=== PATIENT | male | born 1970 | race Hispanic/Latino ===

== ENCOUNTER 2018-11-04 12:26 | Emergency (ER) | payer OTHER, SELFPAY ==
--- NOTE | 2018-11-04 13:13 | RAD REPORT ---
EXAM DESCRIPTION: RAD - Foot Left 3 View - 11/04/2018 1:05 pm CLINICAL HISTORY: Foot pain, puncture wound plantar surface near the metatarsal heads. COMPARISON: None. FINDINGS: No fracture, dislocation or periosteal reaction. No acute or destructive bony process. No air or foreign body at the puncture site nor elsewhere in the foot. Patient does have arterial ariel cifications present. IMPRESSION: No acute bone or joint finding. No foreign body seen at the puncture site.
--- NOTE | 2018-11-04 14:48 | EDPHYS ---
Physician Documentation [facility] Name: Adiel Jeff Age: 48 yrs Sex: Male : 1970 Arrival Date: 11/04/2018 Time: 12:30 Bed 10 Private MD: None, None ED Physician Adam Valdes HPI: 11/04 19:10 This 48 yrs old Male presents to ER via Ambulatory with complaints of Stepped snw on nail. 19:10 The patient presents with pain, that is acute, tenderness. The complaints affect the snw left foot. Context: The problem was sustained outdoors, while wearing socks and shoe. Onset: The symptoms/episode began/occurred suddenly, just prior to arrival. Associated signs and symptoms: The patient has no apparent associated signs or symptoms. Severity of symptoms: At their worst the symptoms were moderate. The patient has not experienced similar symptoms in the past. The patient has not recently seen a physician. Historical: - Allergies: 12:36 No Known Allergies; hj - Home Meds: 12:36 Metformin Oral [Active]; Glipizide Oral [Active]; Lisinopril Oral [Active]; hj - PMHx: 12:36 Diabetes - NIDDM; Hypertension; hj - PSHx: 12:36 None; hj - Immunization history:: Adult Immunizations up to date. - Social history:: Smoking status: Patient/guardian denies using tobacco, Patient/guardian denies using alcohol. - Ebola Screening: : Patient negative for fever greater than or equal to 101.5 degrees Fahrenheit, and additional compatible Ebola Virus Disease symptoms Patient denies exposure to infectious person Patient denies travel to an Ebola-affected area in the 21 days before illness onset. ROS: 19:08 Constitutional: Negative for fever, chills, and weight loss, Eyes: Negative for injury, snw pain, redness, and discharge, ENT: Negative for injury, pain, and discharge, Neck: Negative for injury, pain, and swelling, Cardiovascular: Negative for chest pain, palpitations, and edema, Respiratory: Negative for shortness of breath, cough, wheezing, and pleuritic chest pain, Abdomen/GI: Negative for abdominal pain, nausea, vomiting, diarrhea, and constipation, Back: Negative for injury and pain, : Negative for injury, bleeding, discharge, and swelling, Neuro: Negative for headache, weakness, numbness, tingling, and seizure. 19:08 MS/extremity: Positive for pain, of the ball of left foot. 19:08 Skin: Positive for puncture, of the ball of left foot. Exam: 19:07 Constitutional: This is a well developed, well nourished patient who is awake, alert, snw and in no acute distress. Head/Face: Normocephalic, atraumatic. Eyes: Pupils equal round and reactive to light, extra-ocular motions intact. Lids and lashes normal. Conjunctiva and sclera are non-icteric and not injected. Cornea within normal limits. Periorbital areas with no swelling, redness, or edema. ENT: Nares patent. No nasal discharge, no septal abnormalities noted. Tympanic membranes are normal and external auditory canals are clear. Oropharynx with no redness, swelling, or masses, exudates, or evidence of obstruction, uvula midline. Mucous membranes moist. Neck: Trachea midline, no thyromegaly or masses palpated, and no cervical lymphadenopathy. Supple, full range of motion without nuchal rigidity, or vertebral point tenderness. No Meningismus. Chest/axilla: Normal chest wall appearance and motion. Nontender with no deformity. No lesions are appreciated. Cardiovascular: Regular rate and rhythm with a normal S1 and S2. No gallops, murmurs, or rubs. Normal PMI, no JVD. No pulse deficits. Respiratory: Lungs have equal breath sounds bilaterally, clear to auscultation and percussion. No rales, rhonchi or wheezes noted. No increased work of breathing, no retractions or nasal flaring. Abdomen/GI: Soft, non-tender, with normal bowel sounds. No distension or tympany. No guarding or rebound. No evidence of tenderness throughout. Back: No spinal tenderness. No costovertebral tenderness. Full range of motion. Neuro: Awake and alert, GCS 15, oriented to person, place, time, and situation. Cranial nerves II-XII grossly intact. Motor strength 5/5 in all extremities. Sensory grossly intact. Cerebellar exam normal. Normal gait. Psych: Awake, alert, with orientation to person, place and time. Behavior, mood, and affect are within normal limits. 19:07 Musculoskeletal/extremity: Extremities: grossly normal except: noted in the left foot: pain. 19:07 Skin: Appearance: normal except for affected area, injury, puncture(s), that are deep, of the ball of left foot. Vital Signs: 12:36 BP 146 / 90; Pulse 85; Resp 18; Temp 97.5(TE); Pulse Ox 100% on R/A; Weight 120.2 kg; hj Height 5 ft. 11 in. (180.34 cm); Pain 10/10; 12:36 Body Mass Index 36.96 (120.20 kg, 180.34 cm) hj MDM: 13:42 Patient medically screened. snw 19:09 Data reviewed: vital signs, nurses notes. Data interpreted: Pulse oximetry: on room air snw is 100 %. Interpretation: normal. Counseling: I had a detailed discussion with the patient and/or guardian regarding: the historical points, exam findings, and any diagnostic results supporting the discharge/admit diagnosis, the presence of at least one elevated blood pressure reading (>120/80) during this emergency department visit, radiology results, the need for outpatient follow up, to return to the emergency department if symptoms worsen or persist or if there are any questions or concerns that arise at home. Special discussion: I have referred the patient to see his PCP for further evaluation of high blood pressure. I discussed in detail with the patient the higher chance of wound infection based on his presenting history. Based on the history and exam findings, there is no indication for further emergent testing or inpatient evaluation. I discussed with the patient/guardian the need to see the primary care provider for further evaluation of the symptoms. 11/04 12:38 Order name: XRAY Foot LEFT 3 View; Complete Time: 13:41 11/04 14:36 Order name: Post-op Orthopedic Shoe; Complete Time: 15:21 snw Administered Medications: 14:44 Drug: Tetanus-Diphtheria Toxoid Adult 0.5 ml {Habilitation Specialist: [employer]. Exp: ca1 09/28/2020. Lot #: [id number]. } Route: IM; Site: left deltoid; 15:20 Follow up: Response: No adverse reaction ca1 14:45 Drug: [facility] 5 mg-325 mg 1 tabs Route: PO; ca1 15:19 Follow up: Response: No adverse reaction; Pain is decreased ca1 14:45 Drug: Hibiclens 4 % 1 application Route: Topical; Site: wound; ca1 14:46 Drug: LevaQUIN 500 mg Route: PO; ca1 15:20 Follow up: Response: No adverse reaction ca1 14:47 Drug: Doxycycline 100 mg Route: PO; ca1 15:20 Follow up: Response: No adverse reaction ca1 Disposition: 11/05 12:52 Co-signature as Attending Physician, Adam Valdes MD I agree with the assessment and wa plan of care. Disposition: 11/04/18 14:47 Discharged to Home. Impression: Puncture wound without foreign body of foot. - Condition is Stable. - Discharge Instructions: Puncture Wound, Wound Infection, VIS, Tetanus, Diphtheria (Td) - [facility], Wound Care. - Prescriptions for Levaquin 500 mg Oral Tablet - take 1 tablet by ORAL route once daily for 10 days; 10 tablet. Ultram 50 mg Oral Tablet - take 1 tablet by ORAL route every 6 hours As needed; 12 tablet. Doxycycline Hyclate 100 mg Oral Tablet - take 1 tablet by ORAL route every 12 hours; 20 tablet. - Work release form, Medication Reconciliation Form, Thank You Letter, Antibiotic Education, Prescription Opioid Use form. - Follow up: Private Physician; When: 2 - 3 days; Reason: Recheck today's complaints, Continuance of care, Re-evaluation by your physician. Follow up: Emergency Department; When: As needed; Reason: Worsening of condition. Signatures: Dispatcher [employer] EDMS Renetta Baca, ROSINA-C EMERGENCY MANAGEMENT SYSTEM DIRECTOR-Csnw Simón Stringer RN RN hj Appiah, William, MD MD wa Acob, Cheryl RN RN ca1 Corrections: (The following items were deleted from the chart) 11/04 15:22 14:47 11/04/2018 14:47 Discharged to Home. Impression: Puncture wound without foreign ca1 body of foot. Condition is Stable. Forms are Medication Reconciliation Form, Thank You Letter, Antibiotic Education, Prescription Opioid Use. Follow up: Private Physician; When: 2 - 3 days; Reason: Recheck today's complaints, Continuance of care, Re-evaluation by your physician. Follow up: Emergency Department; When: As needed; Reason: Worsening of condition. snw
--- NOTE | 2018-11-04 14:48 | ER ---
Nurse's Notes 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 Transition of care: patient was not received from another setting of care. Onset of symptoms was November 04, 2018. Risk Assessment: Do you want to hurt yourself or someone else? Patient reports no desire to harm self or others. Initial Sepsis Screen: Does the patient meet any 2 criteria? No. Patient's initial sepsis screen is negative. Does the patient have a suspected source of infection? No. Patient's initial sepsis screen is negative. Care prior to arrival: None. 12:34 Method Of Arrival: Ambulatory 12:34 Acuity: DURAN 4 hj Triage Assessment: 12:36 General: Appears in no apparent distress. uncomfortable, Behavior is calm, cooperative, hj appropriate for age. Pain: Complains of pain in left foot. Historical: - Allergies: 12:36 No Known Allergies; hj - Home Meds: 12:36 Metformin Oral [Active]; Glipizide Oral [Active]; Lisinopril Oral [Active]; hj - PMHx: 12:36 Diabetes - NIDDM; Hypertension; hj - PSHx: 12:36 None; hj - Immunization history:: Adult Immunizations up to date. - Social history:: Smoking status: Patient/guardian denies using tobacco, Patient/guardian denies using alcohol. - Ebola Screening: : Patient negative for fever greater than or equal to 101.5 degrees Fahrenheit, and additional compatible Ebola Virus Disease symptoms Patient denies exposure to infectious person Patient denies travel to an Ebola-affected area in the 21 days before illness onset. Screenin:36 Abuse screen: Denies threats or abuse. Denies injuries from another. Nutritional hj screening: No deficits noted. Tuberculosis screening: No symptoms or risk factors identified. Fall Risk None identified. Assessment: 01:45 General: Appears in no apparent distress. Behavior is calm, cooperative, appropriate ca1 for age. Respiratory: Airway is patent Respiratory effort is even, unlabored. GI: No signs and/or symptoms were reported involving the gastrointestinal system. : No signs and/or symptoms were reported regarding the genitourinary system. EENT: No signs and/or symptoms were reported regarding the EENT system. Derm: Wound noted left foot. Musculoskeletal: Circulation, motion, and sensation intact. Range of motion: limited in left foot. 14:50 Reassessment: Patient appears in no apparent distress at this time. Patient is alert, ca1 oriented x 3, equal unlabored respirations, skin warm/dry/pink. Dressed wound with Hibiclens 4 1%. Placed post up shoes on pt. Vital Signs: 12:36 BP 146 / 90; Pulse 85; Resp 18; Temp 97.5(TE); Pulse Ox 100% on R/A; Weight 120.2 kg; hj Height 5 ft. 11 in. (180.34 cm); Pain 10/10; 12:36 Body Mass Index 36.96 (120.20 kg, 180.34 cm) ED Course: 12:30 Patient arrived in ED. mr 12:31 None, None is Private Physician. mr 12:35 Triage completed. hj 12:36 Arm band placed on left wrist. hj 12:36 Patient has correct armband on for positive identification. Bed in low position. Call hj light in reach. Side rails up X 1. 13:04 X-ray completed. Portable x-ray completed in exam room. Patient tolerated procedure sw well. 13:21 XRAY Foot LEFT 3 View In Process Unspecified. EDMS 13:41 Renetta Baca FNP-C is PHCP. snw 13:41 Adam Valdes MD is Attending Physician. snw 13:51 Cherry Ramsay, SUE is Primary Nurse. ca1 15:15 No provider procedures requiring assistance completed. Patient did not have IV access ca1 during this emergency room visit. Administered Medications: 14:44 Drug: Tetanus-Diphtheria Toxoid Adult 0.5 ml {Senior Clinical Data Analyst: [employer]. Exp: ca1 09/28/2020. Lot #: [id number]. } Route: IM; Site: left deltoid; 15:20 Follow up: Response: No adverse reaction ca1 14:45 Drug: [facility] 5 mg-325 mg 1 tabs Route: PO; ca1 15:19 Follow up: Response: No adverse reaction; Pain is decreased ca1 14:45 Drug: Hibiclens 4 % 1 application Route: Topical; Site: wound; ca1 14:46 Drug: LevaQUIN 500 mg Route: PO; ca1 15:20 Follow up: Response: No adverse reaction ca1 14:47 Drug: Doxycycline 100 mg Route: PO; ca1 15:20 Follow up: Response: No adverse reaction ca1 Outcome: 14:47 Discharge ordered by . sofiya 15:15 Discharged to home via wheelchair. ca1 15:15 Condition: stable 15:15 Discharge instructions given to patient, Instructed on discharge instructions, follow up and referral plans. medication usage, Demonstrated understanding of instructions, follow-up care, medications, Prescriptions given X 3. 15:22 Patient left the ED. ca1 Signatures: Dispatcher [employer] EDMS Renetta Baca, ROSINA-C ASBESTOS MICROSCOPIST-Csnw JacoboSita Jovanna Rosario Simón Menjivar RN RN hj Acob, Cheryl, RN RN ca1 Corrections: (The following items were deleted from the chart) 12:38 12:36 Pulse 85bpm; Resp 18bpm; Pulse Ox 100% RA; Temp 97.5F Temporal; 120.2 kg; Height hj 5 ft. 11 in.; BMI: 36.9; Pain 10/10; hj
[2018-11-04] MEDS ORDERED: HYDROCODONE/APAP 5/325 MG TAB ONE (14:57)
[2018-11-04] MEDS ORDERED: levoFLOXacin 500 MG TAB ONE (14:57)
[2018-11-04] MEDS ORDERED: DOXYCYCLINE 100 MG CAP PO ONE (14:57)
[2018-11-04] MEDS ORDERED: TETANUS & DIPHTHERIA TOX,ADULT 0.5 ML VIAL ONE (14:58)
== END 2018-11-04 15:22 | disposition home or self-care (01) ==
LOC: ER 12:26
DX: S91.332A Puncture wound without foreign body, left foot, initial encounter (principal); W45.0XXA Nail entering through skin, initial encounter; Y93.89 Activity, other specified; Y92.89 Other specified places as the place of occurrence of the external cause; Z23 Encounter for immunization; I10 Essential (primary) hypertension; E11.9 Type 2 diabetes mellitus without complications
CPT/HCPCS: 90714; 99283

== ENCOUNTER 2018-11-15 10:26 | Inpatient (IN) | payer SELFPAY ==
[2018-11-15] MEDS ORDERED: PIPER/TAZO/NS 3.375gm 3.375 GM/100 ML BAG ONE (11:02)
[2018-11-15] MEDS ORDERED: FENTANYL CITR 100 MCG/2 ML ONE (11:02)
[2018-11-15 11:14] LABS: Absolute Lymphocytes (CBC) 1.9 K/uL (0.7-4.9); Absolute Monocytes 1.1 K/uL (0.1-1.3); Absolute Neutrophil 10.8 K/uL (1.8-8.0); Basophils % 0.6 % (0-1.3); Eosinophils % 0.2 % (0-4.4); Hematocrit 43.6 % (39.6-49.0); Lymphocytes % 13.6 % (15.3-44.8); MPV 7.9 fL (7.6-11.3); Monocytes % 7.8 % (3.3-12.3); RBC Red Blood Cell Count 4.84 M/uL (4.33-5.43)
[2018-11-15 11:23] LABS: BUN Blood Urea Nitrogen 10 mg/dL (7-18); Bicarbonate 25 mmol/L (21-32); Glucose Level 325 mg/dL (74-106); Sodium Level 136 mmol/L (136-145)
--- NOTE | 2018-11-15 11:39 | RAD REPORT ---
EXAM DESCRIPTION: RAD - Foot Left 3 View - 11/15/2018 11:26 am CLINICAL HISTORY: Pain;Swelling COMPARISON: Foot Left 3 View dated 11/04/2018 FINDINGS: Soft tissue swelling is seen along the forefoot plantar and dorsal aspect. No radiopaque f oreign body is seen. Heavy vascular calcifications noted. No fracture or radiographic finding to evy kvng osteomyelitis.
--- NOTE | 2018-11-15 11:47 | ER ---
Nurse's Notes [facility] Name: Adiel Jeff Age: 48 yrs Sex: Male : 1970 Arrival Date: 11/15/2018 Time: 10:30 Bed 5 Private MD: Diagnosis: Cellulitis of left lower limb Presentation: 11/15 10:32 Presenting complaint: Patient states: 'I got a chris nail on my left foot November 04 aa5 and on Thursday my foot started getting swollen and red". Pt c/o pain to left foot. Pt reports he is taking Doxycycline and Levaquin. Transition of care: patient was not received from another setting of care. Onset of symptoms was October 2018. Risk Assessment: Do you want to hurt yourself or someone else? Patient reports no desire to harm self or others. Initial Sepsis Screen: Does the patient meet any 2 criteria? No. Patient's initial sepsis screen is negative. Does the patient have a suspected source of infection? No. Patient's initial sepsis screen is negative. Care prior to arrival: None. 10:32 Method Of Arrival: Wheelchair aa5 10:32 Acuity: DURAN 3 aa5 Triage Assessment: 14:10 General: Appears in no apparent distress. Behavior is calm, cooperative, appropriate tw2 for age. Pain: Complains of pain in left foot. Historical: - Allergies: 10:34 No Known Allergies; aa5 - Home Meds: 10:34 Glipizide Oral [Active]; Metformin Oral [Active]; lisinopril Oral [Active]; aa5 - PMHx: 10:34 Diabetes - NIDDM; Hypertension; aa5 - PSHx: 10:34 None; aa5 - Immunization history:: Last tetanus immunization: up to date. - Social history:: Smoking status: Patient/guardian denies using tobacco. - Ebola Screening: : No symptoms or risks identified at this time. Screenin:41 Abuse screen: Denies threats or abuse. Nutritional screening: No deficits noted. tw2 Tuberculosis screening: No symptoms or risk factors identified. Fall Risk None identified. Assessment: 13:47 Reassessment: Nurse to call back for report. sv Vital Signs: 10:34 BP 143 / 87; Pulse 100; Resp 18 S; Temp 98.0(TE); Pulse Ox 99% ; Weight 120.2 kg (R); aa5 Height 5 ft. 11 in. (180.34 cm) (R); Pain 9/10; 12:19 BP 124 / 80; Pulse 89; Resp 14; Pulse Ox 100% ; sv 13:48 BP 106 / 61; Pulse 87; Resp 14; Pulse Ox 97% ; sv 10:34 Body Mass Index 36.96 (120.20 kg, 180.34 cm) aa5 ED Course: 10:30 Patient arrived in ED. mr 10:30 Arm band placed on. aa5 10:34 Triage completed. aa5 10:35 Patient placed in an exam room, on a stretcher. aa5 10:41 Beckie Berman RN is Primary Nurse. tw2 10:41 Bed in low position. Call light in reach. sound technician on. Pulse ox on. NIBP on. tw2 10:42 Kamari Quispe MD is Attending Physician. gs 10:50 Inserted saline lock: 22 gauge in right forearm, using aseptic technique. Blood tw2 collected. 11:05 Basic Metabolic Panel Sent. tw2 11:05 CBC with Diff Sent. tw2 11:25 X-ray completed. Portable x-ray completed in exam room. Patient tolerated procedure sw well. 11:28 Foot Left 3 View XRAY In Process Unspecified. EDMS 11:46 Michelet Enriquez MD is Hospitalizing Provider. gs 14:10 No provider procedures requiring assistance completed. Patient admitted, IV remains in tw2 place. 14:50 Awaiting: attempted to call Marielle macdonald RN. tw2 Administered Medications: 10:57 Drug: fentaNYL (PF) 50 mcg Route: IVP; Site: right forearm; tw2 11:18 Follow up: Response: No adverse reaction; Pain is decreased tw2 11:17 Drug: Zosyn 3.375 grams Route: IVPB; Infused Over: 60 mins; Site: right forearm; tw2 12:19 Follow up: Response: No adverse reaction; IV Status: Completed infusion; IV Intake: 50mlsv Intake: 12:19 IV: 50ml; Total: 50ml. sv Outcome: 11:46 Decision to Hospitalize by Provider. gs 14:10 Admitted to Med/surg accompanied by tech, via wheelchair, room 223, with chart, Report sv called to Marielle ROGERS 14:10 Condition: stable 14:10 Instructed on the need for admit. 14:51 Patient left the ED. tw2 Signatures: Dispatcher [employer] Mary Kay RN RN Centeno Sita mr MehtaAlyssa abbasi, RN RN aa5 Jovanna Johnson Tara, RN RN tw2 Kamari Quispe MD MD gs Corrections: (The following items were deleted from the chart) 16:37 11:30 Inserted saline lock: 22 gauge in right forearm, using aseptic technique. Blood tw2 collected. tw2
--- NOTE | 2018-11-15 11:47 | EDPHYS ---
Physician Documentation [facility] Name: Adiel Jeff Age: 48 yrs Sex: Male : 1970 Arrival Date: 11/15/2018 Time: 10:30 Bed 5 Private MD: ED Physician Kamari Quispe HPI: 11/15 11:43 This 48 yrs old Male presents to ER via Wheelchair with complaints of Wound gs Infection. 11:43 The patient presents with cellulitis of the left foot, the patient presents with a gs swollen area of the left foot. Description: erythematous, swollen. Onset: The symptoms/episode began/occurred 5 day(s) ago. Possible cause(s): puncture wound. Associated signs and symptoms: Pertinent positives: fever, Pertinent negatives: shortness of breath, vomiting. 11:44 Modifying factors: the symptoms are aggravated by pressure. Severity of symptoms: At gs their worst the symptoms were severe, in the emergency department the symptoms are unchanged. Historical: - Allergies: 10:34 No Known Allergies; aa5 - Home Meds: 10:34 Glipizide Oral [Active]; Metformin Oral [Active]; lisinopril Oral [Active]; aa5 - PMHx: 10:34 Diabetes - NIDDM; Hypertension; aa5 - PSHx: 10:34 None; aa5 - Immunization history:: Last tetanus immunization: up to date. - Social history:: Smoking status: Patient/guardian denies using tobacco. - Ebola Screening: : No symptoms or risks identified at this time. ROS: 11:44 All other systems are negative. gs Exam: 11:44 Eyes: Pupils equal round and reactive to light, extra-ocular motions intact. Lids and gs lashes normal. Conjunctiva and sclera are non-icteric and not injected. Cornea within normal limits. Periorbital areas with no swelling, redness, or edema. ENT: Nares patent. No nasal discharge, no septal abnormalities noted. Tympanic membranes are normal and external auditory canals are clear. Oropharynx with no redness, swelling, or masses, exudates, or evidence of obstruction, uvula midline. Mucous membranes moist. Neck: Trachea midline, no thyromegaly or masses palpated, and no cervical lymphadenopathy. Supple, full range of motion without nuchal rigidity, or vertebral point tenderness. No Meningismus. Cardiovascular: Regular rate and rhythm with a normal S1 and S2. No gallops, murmurs, or rubs. Normal PMI, no JVD. No pulse deficits. Respiratory: Lungs have equal breath sounds bilaterally, clear to auscultation and percussion. No rales, rhonchi or wheezes noted. No increased work of breathing, no retractions or nasal flaring. Back: No spinal tenderness. No costovertebral tenderness. Full range of motion. Neuro: Awake and alert, GCS 15, oriented to person, place, time, and situation. Cranial nerves II-XII grossly intact. Motor strength 5/5 in all extremities. Sensory grossly intact. Cerebellar exam normal. Normal gait. 11:44 Constitutional: The patient appears alert, awake. 11:44 Musculoskeletal/extremity: Extremities: noted in the left foot: erythema, swelling, tenderness, Perfusion: the patient is normally perfused throughout. 11:44 Skin: cellulitis, that is moderate. Vital Signs: 10:34 BP 143 / 87; Pulse 100; Resp 18 S; Temp 98.0(TE); Pulse Ox 99% ; Weight 120.2 kg (R); aa5 Height 5 ft. 11 in. (180.34 cm) (R); Pain 9/10; 12:19 BP 124 / 80; Pulse 89; Resp 14; Pulse Ox 100% ; sv 13:48 BP 106 / 61; Pulse 87; Resp 14; Pulse Ox 97% ; sv 10:34 Body Mass Index 36.96 (120.20 kg, 180.34 cm) aa5 MDM: 10:42 Patient medically screened. gs 11:44 Differential diagnosis: abscess, allergic reaction, cellulitis, insect bite. Data gs reviewed: vital signs, nurses notes. Counseling: I had a detailed discussion with the patient and/or guardian regarding: the historical points, exam findings, and any diagnostic results supporting the discharge/admit diagnosis, the need for further work-up and treatment in the hospital. Response to treatment: the patient's symptoms have mildly improved after treatment. Physician consultation: James Ayala MD and will see patient in inpatient room, would like admission per Dr. Michelet Enriquez MD. 11/15 10:45 Order name: CBC with Diff; Complete Time: 11:42 11/15 10:45 Order name: Basic Metabolic Panel; Complete Time: 11:42 11/15 10:45 Order name: Blood Culture* 11/15 10:45 Order name: Foot Left 3 View XRAY; Complete Time: 11:49 11/15 10:49 Order name: IV Start; Complete Time: 11:04 tw2 11/15 13:58 Order name: Diet Ada 1800 José Miguel; Complete Time: 13:59 sv Administered Medications: 10:57 Drug: fentaNYL (PF) 50 mcg Route: IVP; Site: right forearm; tw2 11:18 Follow up: Response: No adverse reaction; Pain is decreased tw2 11:17 Drug: Zosyn 3.375 grams Route: IVPB; Infused Over: 60 mins; Site: right forearm; tw2 12:19 Follow up: Response: No adverse reaction; IV Status: Completed infusion; IV Intake: 50mlsv Disposition: 11/15/18 11:46 Hospitalization ordered by Michelet Enriquez for Inpatient Admission. Preliminary diagnosis is Cellulitis of left lower limb. - Bed requested for Telemetry/MedSurg (Inpatient). - Status is Inpatient Admission. tw2 - Condition is Stable. - Problem is new. - Symptoms are unchanged. UTI on Admission? No Signatures: Dispatcher [employer] EDMS Jess Talbot Audri, RN RN aa5 Beckie Berman RN RN tw2 Kamari Quispe MD MD Mary Dougherty RN Corrections: (The following items were deleted from the chart) 13:43 11:46 Hospitalization Ordered by Michelet Enriquez MD for Inpatient Admission. Preliminary bd diagnosis is Cellulitis of left lower limb. Bed requested for Telemetry/MedSurg (Inpatient). Status is Inpatient Admission. Condition is Stable. Problem is new. Symptoms are unchanged. UTI on Admission? No. gs 14:51 13:43 11/15/2018 11:46 Hospitalization Ordered by Michelet Enriquez MD for Inpatient tw2 Admission. Preliminary diagnosis is Cellulitis of left lower limb. Bed requested for Telemetry/MedSurg (Inpatient). Status is Inpatient Admission. Condition is Stable. Problem is new. Symptoms are unchanged. UTI on Admission? No. bd
--- NOTE | 2018-11-15 12:35 | P.HP ---
Patient History Date of Service: 11/15/18 Reason for admission: Stepped on nail History of Present Illness: This is a 48-year-old male with history diabetes mellitus type 2, hypertension admitted for cellulitis after stepping on a nail. Patient, he stepped on a nail but 2 weeks ago and he went to his primary care physician. He was given doxycycline and Levaquin as an outpatient. Per patient, even after the antibiotics he started developing fever, swelling got worse. It was hurting more in the redness started to spread. Thursday prior to admission, he stated that he was unable to stand or walk too much wanted due to the pain. This is why he came to the ER. He states that his tetanus status is up to date, though does not have any records. In the ER, his labs were positive for a WBC count of 13.9 and a glucose of 325. Otherwise they were unremarkable. Foot x-ray was done, negative for any foreign body, evidence of osteomyelitis or fractures. He remained hemodynamically stable in the ER. He also received 1 dosage of IV Zosyn in the ER. At the time of my exam, he was alert oriented x3, in no acute distress and hemodynamically stable. The blood pressure was slightly elevated. - Past Medical/Surgical History Diabetic: Yes -: Diabetes mellitus type 2 -: Hypertension Review of Systems 10-point ROS is otherwise unremarkable Physical Examination - Physical Exam General: Alert, In no apparent distress, Oriented x3 HEENT: Atraumatic, PERRLA, Mucous membr. moist/pink, EOMI, Sclerae nonicteric Neck: Supple, 2+ carotid pulse no bruit, No LAD, Without JVD or thyroid abnormality Respiratory: Clear to auscultation bilaterally, Normal air movement Cardiovascular: Regular rate/rhythm, Normal S1 S2 Gastrointestinal: Normal bowel sounds, No tenderness Musculoskeletal: Swelling (Left foot), Tenderness Integumentary: No rashes, Tenderness/swelling, Erythema, Warmth Neurological: Normal gait, Normal speech, Normal strength at 5/5 x4 extr, Normal tone, Normal affect Lymphatics: No axilla or inguinal lymphadenopathy - Studies Laboratory Data (last 24 hrs) 11/15/18 10:55: Sodium 136, Potassium 4.0, BUN 10, Creatinine 0.86, Glucose 325 H 11/15/18 10:55: WBC 13.9 H, Hgb 15.0, Hct 43.6, Plt Count 308 Assessment and Plan - Problems (Diagnosis) (1) Cellulitis of left foot Current Visit: Yes Status: Acute (2) Failure of outpatient treatment Current Visit: Yes Status: Acute (3) Diabetes mellitus Current Visit: Yes Status: Acute Qualifiers: Diabetes mellitus type: type 2 Diabetes mellitus 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 computer 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 insulin use: without remote computer 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 use Diabetes mellitus complication status: with hyperglycemia Qualified Code(s): E11.65 - Type 2 diabetes mellitus with hyperglycemia (4) Hypertension Current Visit: Yes Status: Chronic Qualifiers: Hypertension type: essential hypertension Qualified Code(s): I10 - Essential (primary) hypertension (5) Morbid obesity Current Visit: Yes Status: Chronic (6) Injury of foot, left Current Visit: Yes Status: Acute Qualifiers: Encounter type: initial encounter Qualified Code(s): S99.922A - Unspecified injury of left foot, initial encounter - Plan This is a 48-year-old male with: Cellulitis of left foot. Failure of outpatient treatment Left foot injury, stepping on a nail Per patient, tetanus status up-to-date. No records available. Continue IV antibiotics with IV Zosyn Monitor for improvement Pain control Diabetes mellitus type 2, [id number], with hyperglycemia Accu-Cheks ACHS Mild sliding scale insulin Hypertension Will resume home medications once reconciled Continue to monitor blood pressure and make adjustments as needed. Morbid obesity, BMI of 36.6 DVT prophylaxis: Lovenox GI prophylaxis: None Diet: 1800 diabetic Disposition: Admit to floor with tele. Pending symptomatic improvement. - Advance Directives Does patient have a Living Will: No Does patient have a Durable POA for Healthcare: No Time Spent Managing Pts Care (In Minutes): 55
[2018-11-15] MEDS ORDERED: GLUCAGON 1 MG/VIAL IM PRN (14:25)
[2018-11-15] MEDS ORDERED: D50W 25 GM/50 ML SYRINGE IV PRN (14:25)
[2018-11-15] MEDS: ACETAMINOPHEN 500 MG TAB PO PRN (15:13)
[2018-11-15] MEDS: ENOXAPARIN 40 MG/0.4 ML SQ SCH (15:14)
[2018-11-15] MEDS ORDERED: PNEUMOCOCCAL VACCINE 0.5 ML IMVAC ONE (17:00)
[2018-11-15] MEDS ORDERED: INFLUENZA VACCINE (for 3y+) 0.5 ML DOSE IMVAC ONE (17:00)
[2018-11-15] MEDS: INSULIN -REGULAR HUMAN 50 UNIT/0.5 ML ML SQ SCH ×2 (17:34→21:13)
--- NOTE | 2018-11-15 18:57 | P.CNS ---
Date of Consult: 11/15/18 Reason for Consult: left foot nail puncture w/cellulitis Requesting Physician: Alex Gaming Chief Complaint: nail puncture cellulitis left foot, failed outpt. p.o. abx tx History of Present Illness: This patient stepped on a chris nail that went through left shoe into plantar forefoot between 2nd and third MT rays 8 days ago. Patient felt severe electrical-type shock run up LLE and went to his right knee. Patient was back to work when swelling, erythema, and fever became a problem. Was seen as outpatient and started on Levaquin and doxycycline p.o.abx. Patient noted increasing pain, fever, and swelling and presented to ED today. Patient has been admitted for iv abx tx and possible I&D. Allergies No Known Allergies Allergy (Verified 11/15/18 13:56) - Past Medical/Surgical History Diabetic: Yes -: Diabetes mellitus type 2, NIDDM -: Hypertension - Family History Mother Medical History: Diabetes Notes: HPN - Social History Smoking Status: Current every day smoker Alcohol use: No CD- Drugs: No Caffeine use: No Place of Residence: Home Review of Systems 10-point ROS is otherwise unremarkable General: Fever, Weakness Physical Examination Temp Pulse Resp BP Pulse Ox 99 F 93 H 20 124/75 97 11/15/18 16:00 11/15/18 16:00 11/15/18 16:00 11/15/18 16:00 11/15/18 16:00 General: Alert, Oriented x3, Cooperative, Mild distress HEENT: Atraumatic, Normocephalic Neck: Supple Respiratory: Normal air movement Cardiovascular: Normal pulses Capillary refill: >2 Seconds Gastrointestinal: Soft and benign, Non-distended Musculoskeletal: Erythema (left foot plantar and dorsal surfaces), Tenderness ( left forefoot diffusely, but somewhat focused between MT 2&3 where puncture occurred.), Warmth (foot ankle and lower leg warm to touch) Integumentary: No rashes, No breakdown, No significant lesion, Tenderness/ swelling (as above), Erythema (left foot plantar and dorsal surfaces), Warmth ( foot ankle and lower leg) Neurological: Abnormal gait (describes heel and lateral foot walking prior to admit; elevating now) External genitalia: Deferred Rectal: Deferred Laboratory Data (last 24 hrs) 11/15/18 10:55: Sodium 136, Potassium 4.0, BUN 10, Creatinine 0.86, Glucose 325 H 11/15/18 10:55: WBC 13.9 H, Hgb 15.0, Hct 43.6, Plt Count 308 - Problems (1) Cellulitis of left foot Onset Date: ~11/07/18 Current Visit: Yes Status: Acute Conclusions/Impression: Patient failed outpatient antibiotic therapy and now is on IV Zosyn started in ED. Will make NPO after midnight and have stat MRI left foot in AM to eval. for location of any abscess accumulation of fluid or bone involvement with injury or infection. Could do I&D tomorrow afternoon if indicated.
[2018-11-15] MEDS: TRAMADOL HCL 50 MG TAB PO PRN (19:01)
--- NOTE | 2018-11-15 20:24 | RAD REPORT ---
EXAM DESCRIPTION: MRI - Foot Left Wo Cont - 11/15/2018 7:53 pm CLINICAL HISTORY: cellulitis 8d post nail puncture through shoe COMPARISON: Foot Left 3 View dated 11/15/2018 FINDINGS: A 6 mm deep soft tissue wound is seen along the plantar aspect of the forefoot at the leve l of the second metatarsal head. The adjacent plantar soft tissues deep to the site show ill-defined reticulation edema signal. There is subtle marrow signal abnormality seen involving the proximal phal anx of the second toe plantar aspect, suspicious for early findings of osteomyelitis. Moderate edema is seen in the tissues surrounding the second metatarsal shaft and head. No localized fluid collectio n seen. No fracture identified. IMPRESSION: There is significant soft tissue edema and inflammation seen deep to the puncture site a long the plantar forefoot and extending about the tissues surrounding the second metatarsal and secon d toe. Early findings of osteomyelitis are suspected involving the proximal phalanx of the second toe along the plantar aspect. No abscess is seen.
[2018-11-15] MEDS: KETOROLAC 30 MG/ML INJ IV PRN (21:12)
[2018-11-16] MEDS ORDERED: PIPER/TAZO/NS 3.375gm 3.375 GM/100 ML BAG ONE (01:00)
[2018-11-16] MEDS: PIPER/TAZO/NS 3.375gm 3.375 GM/100 ML BAG IVPB SCH ×3 (02:02→16:07)
[2018-11-16] MEDS: KETOROLAC 30 MG/ML INJ IV PRN ×2 (06:09→23:36)
[2018-11-16 06:20] LABS: Absolute Lymphocytes (CBC) 2.3 K/uL (0.7-4.9); Absolute Neutrophil 8.2 K/uL (1.8-8.0); Basophils % 0.9 % (0-1.3); Eosinophils % 0.9 % (0-4.4); Hematocrit 39.8 % (39.6-49.0); Lymphocytes % 19.6 % (15.3-44.8); MPV 7.7 fL (7.6-11.3); Monocytes % 8.7 % (3.3-12.3); RBC Red Blood Cell Count 4.41 M/uL (4.33-5.43)
[2018-11-16 06:34] LABS: Albumin 3.3 g/dL (3.4-5.0); Bilirubin Total 0.8 mg/dL (0.2-1.0); Magnesium 2.2 mg/dL (1.8-2.4); Phosphorus 3.8 mg/dL (2.5-4.9)
[2018-11-16] MEDS: INSULIN -REGULAR HUMAN 50 UNIT/0.5 ML ML SQ SCH ×4 (07:30→21:00)
[2018-11-16] MEDS: ENOXAPARIN 40 MG/0.4 ML SQ SCH (09:00)
[2018-11-16] MEDS: TRAMADOL HCL 50 MG TAB PO PRN ×3 (09:27→21:17)
[2018-11-16 13:11] LABS: Urine Appearance CLEAR; Urine Blood NEGATIVE (NEG); Urine Color DK YELLOW; Urine Glucose 3+ (NEG); Urine Protein TRACE (NEG); Urine Specific Gravity >=1.030 (1.005-1.030)
[2018-11-16 13:19] LABS: Urine Bilirubin NEGATIVE (NEG); Urine Microscopic Reflex ORDER UMIC
[2018-11-16 13:26] LABS: Urine Bacteria <20 /HPF (NONE SEEN); Urine RBC <5 /HPF (NONE SEEN)
[2018-11-16 13:27] LABS: Urine Culture Reflex Order NOT NEEDED
[2018-11-16] MEDS ORDERED: VANCOMYCIN/NS 1 gm 1 GM/250 ML BAG IVPB SCH (14:45)
[2018-11-16] MEDS ORDERED: VANCOMYCIN 3 GM in NA CHLORIDE 0.9% 500 ML IVPB ONE (16:00)
[2018-11-16] MEDS: glipiZIDE 5 MG TAB PO SCH (16:07)
[2018-11-16] MEDS: ACETAMINOPHEN 500 MG TAB PO PRN (18:19)
--- NOTE | 2018-11-16 19:37 | PN ---
Date of Progress Note: 11/16/2018 Subjective: The patient seen and examined. Chart reviewed and case discussed with RN. The patient still reporting some pain and some swelling and redness of his left foot. Case discussed with Dr. Jack doan. Medications: List reviewed. Physical Examination: Vital Signs: Temperature 98.7, heart rate 84, blood pressure 126/76, respirations 20, O2 98% on room air. General: Awake, alert, oriented x3, ill-appearing male, obese, BMI 37. CV: S1, S2. Regular rate and rhythm. Peripheral pulses present. Respiratory: Moving air well bilaterally. No wheezing or stridor. Gastrointestinal: Abdomen is soft, nontender, nondistended. Positive bowel sounds. Extremities: No clubbing, cyanosis. Left pedal edema. Skin: Left foot erythema, swelling, and some minimal tenderness to touch. No drainage. Neurologic: Nonfocal. Laboratory Data: Sodium 135, potassium 4, chloride 103, CO2 25, BUN 19, creatinine 1.01, glucose 335 , calcium 9.1, phosphorus 3.8, magnesium 2.2. WBC 11.7, H and H 13.8 and 39.8, platelets 287, neutro phils 59%. Blood cultures, no growth to date. MRI of the foot shows significant soft tissue edema a nd inflammation seen deep to the puncture site along the plantar forefoot and extending about the tis sues surrounding the second metatarsal and second toe, early findings of osteomyelitis are suspected involving the proximal phalanx of the second toe along the plantar aspect. No abscess is seen. Assessment And Plan: A 48-year-old male with; 1.Left lower extremity cellulitis involving the foot secondary to diabetic foot infection. The bridger ent had trauma with the nail. The patient has been evaluated by Dr. Ayala as MRI does show osteomye litis. Due to the location of the osteomyelitis, he will need a market research specialist. For now, Dr. Lim n recommends IV antibiotic therapy. We will consult Infectious Disease as well. No drainable absces s. 2.Failure of outpatient treatment. 3.Diabetes mellitus type 2 with long-term use of insulin with hyperglycemia. 4.Osteomyelitis of the left foot proximal phalanx second toe along the plantar aspect. 5.Essential hypertension, stable. We will resume home medications. 6.Obesity, BMI of 37. Counseled. 7.Injury of left foot, initial encounter. Plan: Continue broad-spectrum IV antibiotics. Follow up on cultures. We will monitor Accu-Cheks an d continue sliding scale insulin with tight glycemic control. Deep vein thrombosis prophylaxis with Lovenox. ID consultation. /BRIAN Voice ID: [id number] Report ID: [id number]
--- NOTE | 2018-11-16 21:35 | P.PN ---
Date of Service: 11/16/18 S: Today this patient is alert and oriented times x3 cooperative and feeling much better than yesterday with regard to the swelling and pressure in his left foot. O: For the last 24 hours the patient has run a very low-grade temperature hovering around 99.The patients white count was 11.7 this morning neutrophil percentage 70 hemoglobin 13.8 GFR 78 and BUN 19.0. Exam shows the swelling above the ankle has decreased dramatically without pedal edema located over the [place]. The foot is much less tender and edema is decreased in that area as well. The patient allowed tugging on the second toe without discomfort. Yesterday the withdrawal reaction was immediate and pressure was quite uncomfortable. MRI scan Shows significant soft tissue edema and inflammation deep to the puncture site on the plantar surface of the forefoot extending around tissues surrounding the second metatarsal and second toe.early findings of osteomyelitis suspected involving the proximal phalanx of the second toe along the plantar aspect. No abscess is seen. A: Improvement is noted after the first day of broad-spectrum IV antibiotic therapy. The diagnosis of osteomyelitis is more suggested than made. As the course of antibiotics reduces significant soft tissue edema and inflammation, a follow up MRI could clarify the suspected early finding of osteomyelitis. P: As this is a diabetic foot, I would recommend close observation for steady improvement during early IV antibiotic therapy. Should the diagnosis of osteomyelitis be confirmed by a follow up MRI, I would think a foot and ankle specialist would have a better chance of getting in and out of the diabetic foot with successful wound healing. ID consult pending. I will continue to monitor the patients progress daily.
[2018-11-17] MEDS: PIPER/TAZO/NS 3.375gm 3.375 GM/100 ML BAG IVPB SCH ×2 (00:33→09:34)
[2018-11-17] MEDS: VANCOMYCIN 2 GM in NA CHLORIDE 0.9% 500 ML IVPB SCH ×3 (04:46→20:40)
[2018-11-17 06:23] LABS: Absolute Lymphocytes (CBC) 2.5 K/uL (0.7-4.9); Absolute Monocytes 1.2 K/uL (0.1-1.3); Absolute Neutrophil 7.9 K/uL (1.8-8.0); Basophils % 0.6 % (0-1.3); Eosinophils % 1.7 % (0-4.4); Hematocrit 36.8 % (39.6-49.0); Lymphocytes % 21.2 % (15.3-44.8); MPV 7.7 fL (7.6-11.3); Monocytes % 10.2 % (3.3-12.3); RBC Red Blood Cell Count 4.08 M/uL (4.33-5.43)
[2018-11-17 06:37] LABS: Albumin 2.8 g/dL (3.4-5.0); Bilirubin Total 0.6 mg/dL (0.2-1.0); Potassium 4.1 mmol/L (3.5-5.1); Protein, Total 7.1 g/dL (6.4-8.2)
[2018-11-17] MEDS: INSULIN -REGULAR HUMAN 50 UNIT/0.5 ML ML SQ SCH ×4 (07:30→21:51)
[2018-11-17] MEDS: ENOXAPARIN 40 MG/0.4 ML SQ SCH (09:00)
[2018-11-17] MEDS: LISINOPRIL 10 MG TAB PO SCH (09:33)
[2018-11-17] MEDS: glipiZIDE 5 MG TAB PO SCH ×2 (09:33→16:30)
[2018-11-17] MEDS: KETOROLAC 30 MG/ML INJ IV PRN (09:36)
[2018-11-17] MEDS: CEFEPIME/SWI 2gm 2 GM/20 ML SYR IV SCH ×2 (12:00→20:37)
--- NOTE | 2018-11-17 13:32 | CON ---
History: A 48-year-old gentleman with diabetes type 2 and hypertension. He stepped on a nail 2 week s ago. Now, the foot is infected. He failed outpatient antibiotics with doxycycline and Levaquin an d now, he has been admitted for IV medication, currently on Zosyn and vancomycin, has a higher risk o f acute renal failure, so we are going to have that changed around for him. We will discuss that wit pharmacy today. He has no urinary problems before. I was called mainly for gross hematuria after the patient was placed on IV Lovenox. Lovenox has been stopped and he is waiting to pee again. He h as normal rectal examination at his job, he says, so did not need one done. His physical exam was ot herwise benign in terms of his urological findings. Past Medical History: Diabetes type 2 and hypertension. Review of Systems: Ten-point review of systems otherwise unremarkable. Physical Examination: Vital Signs: 98.7, pulse 81, respiratory rate 15, BP 137/77, and saturations 96%. General: He is alert, oriented, no acute distress. Neck: Supple. HEENT: Atraumatic and normocephalic. Chest: Clear. Heart: Regular rate and rhythm. Abdomen: Soft, nontender. : Phallus uncircumcised. No lesions. Both testicles descended. No masses. Nontender. Rectal: Deferred since he normally does this at his job annually. Extremities: His left foot was swollen and slightly erythematous. Skin: No rashes. Neurological: Alert and oriented. Lymphatic: No axillary lymphadenopathy. Laboratory Studies: White count 11.8, H and H of 12.6 and 36.8, platelets 275. Chemistry; sodium 13 9, potassium 4.1, chloride 106, carbon dioxide 27, BUN 18, creatinine 0.97, GFR 82, glucose 246, and calcium 8.6. Urine study shows color clear, blood negative, nitrite negative, rbc's less than 5, ildefonso teria less than 20. This was done on 11/16/2018, recently another one today. Assessment: Left leg cellulitis from stepping on a nail. The patient says his tetanus shot is up to date, currently on IV antibiotics, which will be readjusted today due to the risk of acute renal rosy lure. As far as his hematuria is concerned, his Lovenox has been stopped. I am going to go ahead an d get a screening renal ultrasound just to make sure he does not have a renal pathology that could be a problem. STEVE/BRIAN Voice ID: [id number] Report ID: [id number]
--- NOTE | 2018-11-17 13:47 | CON ---
History Of Present Illness: This is a 48-year-old male coming in with a puncture nail wound to the l eft foot with cellulitis. The patient has significant history of diabetes mellitus. Denies any head ache, nausea, vomiting, chest pain, abdominal pain, constipation, or diarrhea. Past Medical History: Diabetes mellitus and hypertension. Social History: Nonsmoker, nondrinker. Family History: Noncontributory. Medications: Zosyn and vancomycin. Allergies: NO KNOWN DRUG ALLERGIES. Review of Systems: A 10-point review was performed. Physical Examination: General: This is a 48-year-old male, lying in bed, not in any acute cardiopulmonary distress. Vital Signs: Temperature 98, pulse 81, respirations 15, and blood pressure 137/77. HEENT: Unremarkable. Neck: Supple. Lungs: Basal crackles. Heart: S1 and S2, regular. Abdomen: Soft, nontender. Bowel sounds present. Extremities: Trace edema to the left foot with a puncture wound noted at the plantar surface. Laboratory Data: WBC 11.8, hemoglobin 12.6, and platelets are 275. Chemistry shows sodium 139, pota ssium 4.1, chloride 106, bicarb 27, BUN 18, creatinine 0.97, and glucose is 246. Blood cultures, no growth for 24 hours. Assessment And Plans: A 48-year-old male with left lower extremity cellulitis status post puncture w ound to the left foot by nail with a history of diabetes mellitus. Continue antibiotic for 2 weeks. Can be switched to doxycycline and Levaquin on discharge. We will follow the patient as needed. Mo nitor blood sugars and have better blood sugar control and diet. We will follow the patient as stefany bobo. Thank you for consult. HITESH/BRIAN Voice ID: [id number] Report ID: [id number]
--- NOTE | 2018-11-17 14:07 | RAD REPORT ---
EXAM DESCRIPTION: US - Renal Ultrasound-Complete - 11/17/2018 1:43 pm CLINICAL HISTORY: . Hematuria COMPARISON: None. FINDINGS: The right kidney measures 12 cm with a normal echotexture. The left kidney measures 12 cm with a normal echotexture. The 2 hypodense lesions seen on the prior C AT scan are not clearly visualized on this exam Hydronephrosis is not seen. No gross abnormality the bladder noted IMPRESSION: Two hypodense lesions within the left kidney seen on the prior CAT scan are not clearly seen on this exam. No abnormality is displayed
[2018-11-17 15:36] LABS: Urine Appearance CLEAR; Urine Bilirubin NEGATIVE (NEG); Urine Blood 2+ (NEG); Urine Color YELLOW; Urine Glucose 3+ (NEG); Urine Protein NEGATIVE (NEG); Urine Specific Gravity >=1.030 (1.005-1.030); Urine pH 5.5 (5.0-7.0)
[2018-11-17] MEDS: HYDROCODONE/APAP 7.5/325 MG TAB PO PRN ×2 (15:43→21:02)
[2018-11-17 16:17] LABS: Urine Microscopic Reflex ORDER UMIC
[2018-11-17 16:59] LABS: Urine Bacteria <20 /HPF (NONE SEEN); Urine Culture Reflex Order NOT NEEDED; Urine RBC 20-50 /HPF (NONE SEEN)
[2018-11-17 17:00] LABS: Urine Mucus 1+ /HPF (NONE SEEN)
[2018-11-17] MEDS ORDERED: ENOXAPARIN 40 MG/0.4 ML SQ SCH (17:00)
--- NOTE | 2018-11-17 19:00 | PN ---
Date of Progress Note: 11/17/2018 Subjective: The patient is seen and examined, chart reviewed, and case discussed with Dr. Noble. T he patient is still complaining of pain. No fevers overnight. Medications: List reviewed. Physical Examination: Vital Signs: Temperature 97.1, heart rate 83, blood pressure 124/66, respirations 16, and O2 of 96% on room air. General: Awake, alert, and oriented x3. Some mild distress. Obese male, ill appearing. CV: S1 and S2. Regular rate and rhythm. Peripheral pulses present. Respiratory: Moving air well bilaterally. No wheezing or stridor. Gastrointestinal: Abdomen is soft, nontender, and nondistended. Positive bowel sounds. Extremities: No clubbing or cyanosis. The patient does have some edema of the left foot. Skin: Left foot erythema, swelling, mild tenderness to palpation. No pustular drainage. Neurologic: Nonfocal. Laboratory Data: Sodium 139, potassium 4.1, chloride 106, CO2 of 27, BUN 18, creatinine 0.97, glucos e 246, and calcium 8.6. WBC 11.8, H and H of 12.6 and 36.8, and platelets 275. Renal ultrasound david ws 2 hyperdense lesions within the left kidney seen on a prior CAT scan, not clearly seen on this exa m, no abnormality is displayed. Assessment And Plan: A 48-year-old male with, 1.Left lower extremity cellulitis involving the foot secondary to diabetic foot infection. The bridger ent did have trauma with a nail. The patient does have osteomyelitis on MRI. Unfortunately, needs a health care specialist. I appreciate Dr. Ayala's input. We will continue IV antibiotics. We will switch over Zosyn to cefepime to avoid kidney dysfunction. I appreciate Dr. Noble's input. He recommends outpatient IM Rocephin and p.o. doxycycline for 4 to 6 weeks. Unfortunately, the patient does not h e funding, therefore, unable to be sent to [facility] for long-term IV antibiotic therapy. 2.Failure of outpatient treatment. 3.Diabetes mellitus type 2 with long-term use of insulin with hyperglycemia. The patient is noncomp liant with his diet, even in the hospital. We will continue with sliding scale and monitor Accu-Chek s. 4.Osteomyelitis of the left foot, proximal phalanx second toe along the plantar aspect. Plan is for long-term IV antibiotics. I appreciate ID input. 5.Essential hypertension, stable. 6.Obesity, BMI of 37. 7.Injury of the left foot, initial encounter. PLAN: DVT prophylaxis with Lovenox. Discontinue Toradol. Social Work consult for long-term IV anti biotics. /BRIAN Voice ID: [id number] Report ID: [id number]
[2018-11-17] MEDS ORDERED: CEFEPIME 2 GM in NA CHLORIDE 0.9% 100 ML IV SCH (21:00)
[2018-11-17] MEDS: INSULIN GLARGINE 100 UNITS/ML SQ SCH (21:51)
[2018-11-18] MEDS: KETOROLAC 30 MG/ML INJ IV PRN (00:34)
[2018-11-18] MEDS: INSULIN -REGULAR HUMAN 50 UNIT/0.5 ML ML SQ SCH ×4 (07:30→21:05)
[2018-11-18 08:45] LABS: Absolute Lymphocytes (CBC) 1.5 K/uL (0.7-4.9); Absolute Monocytes 0.9 K/uL (0.1-1.3); Absolute Neutrophil 6.7 K/uL (1.8-8.0); Basophils % 0.5 % (0-1.3); Eosinophils % 2.2 % (0-4.4); Hematocrit 35.2 % (39.6-49.0); Lymphocytes % 16.1 % (15.3-44.8); MPV 7.3 fL (7.6-11.3); Monocytes % 9.2 % (3.3-12.3); RBC Red Blood Cell Count 3.91 M/uL (4.33-5.43)
[2018-11-18 08:59] LABS: ALT/SGPT 12 U/L (12-78); AST/SGOT 8 U/L (15-37); Albumin 2.6 g/dL (3.4-5.0); Alkaline Phosphatase 70 U/L (45-117); BUN Blood Urea Nitrogen 12 mg/dL (7-18); Bicarbonate 25 mmol/L (21-32); Bilirubin Total 0.5 mg/dL (0.2-1.0); Glucose Level 125 mg/dL (74-106); Potassium 3.8 mmol/L (3.5-5.1); Protein, Total 6.7 g/dL (6.4-8.2); Sodium Level 140 mmol/L (136-145)
[2018-11-18] MEDS: CEFEPIME/SWI 2gm 2 GM/20 ML SYR IV SCH ×2 (09:58→21:04)
[2018-11-18] MEDS: VANCOMYCIN 2 GM in NA CHLORIDE 0.9% 500 ML IVPB SCH ×2 (09:58→21:04)
[2018-11-18] MEDS: HYDROCODONE/APAP 7.5/325 MG TAB PO PRN ×3 (09:59→21:12)
[2018-11-18] MEDS: glipiZIDE 5 MG TAB PO SCH ×2 (10:00→16:50)
[2018-11-18] MEDS: LISINOPRIL 10 MG TAB PO SCH (10:00)
[2018-11-18] MEDS ORDERED: POTASSIUM CL SA 10 MEQ TAB PO ONE (11:00)
--- NOTE | 2018-11-18 14:48 | PN ---
Date of Progress Note: 11/18/2018 Subjective: The patient seen and examined. Chart reviewed and case discussed with RN. The patient states his pain is still quite significant and is about the palmar aspect of his foot, seems to be ge tting worse. Medications: List reviewed. Physical Examination: Vital Signs: Temperature 98.6, heart rate 75, blood pressure 138/71, respirations 16, O2 97% on room air. General: Awake, alert, oriented x3, ill-appearing, obese male. CV: S1 and S2. No murmurs. Regular rate and rhythm. Peripheral pulses present. Respiratory: Moving air well bilaterally. No wheezing. Gastrointestinal: Abdomen is soft, nontender, nondistended. Positive bowel sounds. Extremities: No clubbing or cyanosis. The patient has pedal edema on the left. Skin: The patient has erythema and tenderness to palpation of the left foot, palmar aspect. Now has developing induration, however, no discharge. Neurologic: Nonfocal. Laboratory Data: Sodium 140, potassium 3.8, chloride 108, CO2 25, BUN 12, creatinine 0.7, glucose 12 5, calcium 8. WBC 9.3, H and H 12.2 and 35.2, platelets 266. Blood cultures no growth to date. Assessment And Plan: A 48-year-old male with: 1.Left lower extremity cellulitis involving the foot secondary to diabetic foot infection secondary to trauma. MRI shows osteomyelitis. We will discuss further with Dr. Ayala for need for drainage. No abscess was seen on imaging. However, now developing some induration. Infectious Disease recomm ends outpatient IM Rocephin and p.o. doxycycline. We will discuss with Case Management regarding the patient set up. 2.Hematuria, gross. Appreciate Dr. Simmons's input. We will hold Lovenox for now improved. 3.Failure of outpatient treatment. 4.Diabetes mellitus type 2 with long-term use of insulin with hyperglycemia. Continue sliding scale insulin. Adjust insulin dose as needed. Levemir was added as long-acting. 5.Osteomyelitis of left foot proximal phalanx second toe along the plantar aspect. Continue IV anti biotics. 6.Essential hypertension, stable. 7.Obesity, BMI of 37. 8.Injury of left foot, initial encounter. Plan: DVT prophylaxis with SCDs. We will discuss with Dr. Ayala regarding possible need for debrid ement. SA/MODL Voice ID: [id number] Report ID: [id number]
--- NOTE | 2018-11-18 15:24 | PN ---
Subjective: The patient is lying in bed. Denies any headache, nausea, vomiting, chest pain, abdomin al pain, constipation, or diarrhea. Objective: Vital Signs: Temperature 98, pulse 63, respirations 16, blood pressure 176/73. Lungs: Basal crackles. Heart: S1, S2. Regular. Abdomen: Soft, nontender. Bowel sounds present. Extremity: No edema. Laboratory Data: Shows WBC 9.3, hemoglobin 12.2, platelets 266. Chemistry shows sodium 140, potassi um 3.8, chloride 108, bicarb 25, BUN 12, and creatinine 0.7, glucose 125. Blood cultures are negativ e. Currently, the patient is on cefepime and vancomycin. Assessment And Plan: Status post nail puncture wound to the foot and cellulitis of the foot. The pa tient is doing better. Consider having surgical debridement of the foot abscess. We will follow the patient as needed. NF/MODL Voice ID: [id number] Report ID: [id number]
[2018-11-18] MEDS: INSULIN GLARGINE 100 UNITS/ML SQ SCH (21:05)
--- NOTE | 2018-11-19 00:45 | P.PN ---
Date of Service: 11/18/18 S: Today this patient is alert and oriented times x3 cooperative and feeling concerned about swelling and pressure focused in a quarter-sized chicken ranch around the puncture site in his left plantar forefoot. O: The patient has continued with an occasional low-grade temperature.The patients white count has normalized this morning. Hemoglobin is 12.2. Exam shows the swelling above the ankle has been eliminated, but a tense and tender area around the nail wound extends to obviously involve the 2nd toe at its base. The foot is less tender but the sense is that an abscess has coalesced around the nail wound tract. Tugging on the second toe is with discomfort today. A: Improvement has stalled with signs of abscess formation. Operative risks and benefits were discussed at length with all questions answered and the patient has elected to proceed with incision and drainage despite the risks of non-healing wounds in diabetic patient's feet. P: Incision and drainage at the nail wound and dorsal approach to the second MTP joint for irrigation and debridement is planned for 12N tomorrow.
[2018-11-19] MEDS: ACETAMINOPHEN 500 MG TAB PO PRN (01:14)
[2018-11-19] MEDS: KETOROLAC 30 MG/ML INJ IV PRN (05:35)
[2018-11-19 05:40] LABS: Absolute Lymphocytes (CBC) 2.4 K/uL (0.7-4.9); Absolute Monocytes 0.9 K/uL (0.1-1.3); Absolute Neutrophil 7.2 K/uL (1.8-8.0); Basophils % 0.7 % (0-1.3); Eosinophils % 2.5 % (0-4.4); Hematocrit 38.2 % (39.6-49.0); Lymphocytes % 21.9 % (15.3-44.8); MPV 7.5 fL (7.6-11.3); Monocytes % 8.7 % (3.3-12.3); RBC Red Blood Cell Count 4.26 M/uL (4.33-5.43)
[2018-11-19 06:04] LABS: ALT/SGPT 15 U/L (12-78); AST/SGOT 6 U/L (15-37); Alkaline Phosphatase 75 U/L (45-117); BUN Blood Urea Nitrogen 11 mg/dL (7-18); Bicarbonate 26 mmol/L (21-32); Bilirubin Total 0.4 mg/dL (0.2-1.0); Glucose Level 228 mg/dL (74-106); Magnesium 2.2 mg/dL (1.8-2.4); Phosphorus 3.9 mg/dL (2.5-4.9); Potassium 3.9 mmol/L (3.5-5.1); Protein, Total 7.8 g/dL (6.4-8.2); Sodium Level 138 mmol/L (136-145)
[2018-11-19] MEDS: glipiZIDE 5 MG TAB PO SCH ×2 (07:30→17:10)
[2018-11-19] MEDS: CEFEPIME/SWI 2gm 2 GM/20 ML SYR IV SCH ×2 (08:51→22:05)
[2018-11-19] MEDS: LISINOPRIL 10 MG TAB PO SCH (08:51)
[2018-11-19] MEDS: INSULIN -REGULAR HUMAN 50 UNIT/0.5 ML ML SQ SCH ×4 (08:51→21:00)
[2018-11-19] MEDS: VANCOMYCIN 2 GM in NA CHLORIDE 0.9% 500 ML IVPB SCH ×2 (10:21→21:00)
[2018-11-19] MEDS ORDERED: VANCOMYCIN IRR ONE (12:00)
[2018-11-19] MEDS ORDERED: POLYMYXIN B SULFATE IRR ONE (12:00)
[2018-11-19] MEDS ORDERED: IRR IRR ONE (12:00)
[2018-11-19] MEDS ORDERED: NACL 0.9% IRR ONE (12:00)
--- NOTE | 2018-11-19 12:57 | PN ---
Subjective: The patient is lying in bed, continuing to have pain in his left foot. Denies any heada modesto, nausea, vomiting, chest pain, abdominal pain, constipation, or diarrhea. Objective: Vital Signs: Temperature 98, pulse 73, respirations 17, and blood pressure 122/76. Extremities: Examination of left leg shows blistering lesion at the plantar surface with erythematou s changes to the foot. Laboratory Data: Shows WBC 10.9, hemoglobin 13.2, and platelets 355. Chemistry shows sodium 138, po tassium 3.9, chloride 104, bicarb 26, BUN 11, creatinine 0.82, and glucose 228. Assessment And Plan: The patient with left foot cellulitis status post a nail puncture wound, uncont rolled diabetes mellitus. Continue antibiotic. Surgical team will be debriding today. We will foll ow the patient as needed. HITESH/MODL Voice ID: [id number] Report ID: [id number]
[2018-11-19] MEDS ORDERED: NA CHLORIDE 0.9% 1,000 ML ONE (13:12)
[2018-11-19] MEDS ORDERED: FENTANYL CITR 100 MCG/2 ML ONE ×2 (13:47→14:37)
[2018-11-19] MEDS ORDERED: PROPOFOL 200 MG/20 ML VIAL IV ONE (13:47)
[2018-11-19] MEDS ORDERED: LIDOCAINE 2% MPF 5 ML VIAL ONE (13:47)
[2018-11-19] MEDS ORDERED: BUPIVACAINE 0.5% PF 10 ML VIAL ONE (14:08)
[2018-11-19] MEDS ORDERED: EPHEDRINE SULF 50 MG/ML VIAL ONE (14:26)
--- NOTE | 2018-11-19 15:15 | P.BOP ---
Preoperative diagnosis: Infection left forefoot with osteomyelitis prox phalanx 2nd toe Postoperative diagnosis: same Primary procedure: Incision&debridement of abscess L plantar forefoot Secondary procedure: dorsal incision to 2nd MTPjoint for irrigation&debridement [employer] Handler: James Ayala Estimated blood loss: < 5mL Specimen: DEBRIDED ROOF OF PLANTAR BLISTER Findings: PURE PUS FROM PLANTAR BLISTER&FROM 2ND TOE MTP JOINT,CULTURES SENT Anesthesia: General Complications: AT END OF CASE CYANOSIS NOTED INVOLVING 2ND TOE. REMOVED BANDAGE AND REMOVED HORIZONTAL MATTRESS STITCHES FROM LONGITUDINAL INCISION CENTERED OVER EXT. TENDON. COLOR IMPROVES. ALL TISSUE AROUND 2ND TOE THICKENED AND STIFF FROM PRESSURE OF ABSCESS. MARCAINE INJECTED JUST PRIOR TO BANDAGE MAY HAVE INCREASED TISSUE TURGOR. Fluids & blood products: IRRIGw/2L NS w/VANC 1G/L & POLYMYXIN 250KUNITS/L; INJ MARCAINE 0.5%PLAIN Transferred to: Recovery Room Condition: Good
[2018-11-19] MEDS ORDERED: MEPERIDINE HCL 50 MG/ML AMP ONE (15:31)
[2018-11-19] MEDS: HYDROCODONE/APAP 7.5/325 MG TAB PO PRN ×2 (17:10→23:23)
--- NOTE | 2018-11-19 17:24 | PN ---
Subjective: The patient is going to surgery today for debridement of infected foot into stepping on a nail. UA did show 20-50 RBCs, 5-10 squamous cells. The patient does not complain anymore for tom s hematuria since the Lovenox has been stopped. His upper tracts essentially normal. Continue to ob serve the patient. If it continues again, he will need a cystoscopy as an outpatient. STEVE/BRIAN Voice ID: [id number] Report ID: [id number]
--- NOTE | 2018-11-19 18:10 | PN ---
Date of Progress Note: 11/19/2018 Subjective: The patient is seen and examined. Chart reviewed, and case discussed with RN and Dr. Loida galaviz as well as Dr. Ayala. The patient is scheduled for I and D today due to worsening and developm ent of abscess formation. Medications: List reviewed. Physical Examination: Vital Signs: Temperature 98.7, heart rate 77, blood pressure 139/74, respirations 16, O2 of 95% on r oom air. General: Awake, alert, oriented x3. An ill-appearing male, obese, BMI of 37. CV: S1, S2. Regular rate and rhythm. Peripheral pulses present. Respiratory: Moving air well bilaterally. No wheezing. Gastrointestinal: Abdomen is soft, nontender, nondistended. Positive bowel sounds. Extremities: No clubbing or cyanosis. Left lower extremity edema is present. Skin: The patient has erythema of the left foot and induration with abscess formation on the plantar aspect where the trauma occurred. Neurologic: Nonfocal. Decreased sensation to light touch, bilateral lower extremities. Laboratory Data: Sodium 138, potassium 3.9, chloride 104, CO2 of 26, BUN 11, creatinine 0.82, glucos e 228, calcium 8.9. WBC 10.9, H and H 13.2 and 38.2, platelets 355. Blood cultures, no growth to da te. Assessment: A 48-year-old male with: 1.Left lower extremity cellulitis involving the foot secondary to diabetic foot infection secondary to trauma with nail. The patient is up to date on his tetanus shot. MRI did show osteomyelitis. Th e patient now needing incision and drainage to abscess formation, undergoing procedure today by Dr. Sugar wang. We will continue IV antibiotics. Blood cultures have been negative to date. We will obtain wound cultures from Surgery. 2.Gross hematuria, resolved. Lovenox on hold. No drop in hemoglobin and hematocrit. 3.Failure of outpatient treatment. 4.Diabetes mellitus type 2 with long-term use of insulin with hyperglycemia. Insulin dose has been adjusted. We will continue to monitor Accu-Cheks and continue sliding scale. 5.Osteomyelitis of left foot, proximal phalanx second toe along the plantar aspect. Continue IV ant ibiotics. The patient will need a prolonged course to be set up as outpatient. 6.Essential hypertension, stable. 7.Obesity, BMI 37. 8.Injury to the left foot, initial encounter. 9.Deep venous thrombosis prophylaxis with SCDs. No chemical anticoagulation due to gross hematuria. Plan: Will need to set up outpatient antibiotics for 4 to 6 weeks. He will also be on oral doxycycl ine. Appreciate Infectious Disease input. Likely discharge in the next 24 to 48 hours depending on c linical improvement and once antibiotics have been set up. /BRIAN Voice ID: [id number] Report ID: [id number]
[2018-11-19] MEDS: INSULIN GLARGINE 100 UNITS/ML SQ SCH (21:00)
[2018-11-19] MEDS ORDERED: VANCOMYCIN 2 GM in NA CHLORIDE 0.9% 500 ML IVPB SCH (22:00)
[2018-11-20 04:52] LABS: Absolute Lymphocytes (CBC) 1.9 K/uL (0.7-4.9); Absolute Monocytes 0.8 K/uL (0.1-1.3); Absolute Neutrophil 7.3 K/uL (1.8-8.0); Basophils % 0.5 % (0-1.3); Eosinophils % 1.8 % (0-4.4); Hematocrit 34.7 % (39.6-49.0); Lymphocytes % 18.4 % (15.3-44.8); MPV 7.2 fL (7.6-11.3); Monocytes % 8.1 % (3.3-12.3); RBC Red Blood Cell Count 3.88 M/uL (4.33-5.43)
[2018-11-20 05:02] LABS: ALT/SGPT 13 U/L (12-78); AST/SGOT 7 U/L (15-37); Albumin 2.6 g/dL (3.4-5.0); Alkaline Phosphatase 68 U/L (45-117); BUN Blood Urea Nitrogen 10 mg/dL (7-18); Bicarbonate 28 mmol/L (21-32); Bilirubin Total 0.4 mg/dL (0.2-1.0); Glucose Level 128 mg/dL (74-106); Potassium 3.6 mmol/L (3.5-5.1); Protein, Total 7.1 g/dL (6.4-8.2); Sodium Level 140 mmol/L (136-145)
[2018-11-20] MEDS ORDERED: POTASSIUM 25 MEQ EFFERV TAB PO ONE (05:47)
[2018-11-20] MEDS: INSULIN -REGULAR HUMAN 50 UNIT/0.5 ML ML SQ SCH ×4 (07:30→21:13)
[2018-11-20] MEDS: LISINOPRIL 10 MG TAB PO SCH (08:44)
[2018-11-20] MEDS: HYDROCODONE/APAP 7.5/325 MG TAB PO PRN ×2 (08:44→19:59)
[2018-11-20] MEDS: glipiZIDE 5 MG TAB PO SCH ×2 (08:44→16:50)
[2018-11-20] MEDS: CEFEPIME/SWI 2gm 2 GM/20 ML SYR IV SCH ×2 (09:31→19:58)
[2018-11-20] MEDS: MORPHINE 2 MG/ML SYR IV PRN ×2 (11:18→22:54)
[2018-11-20] MEDS: VANCOMYCIN 2 GM in NA CHLORIDE 0.9% 500 ML IVPB SCH (11:19)
--- NOTE | 2018-11-20 12:36 | P.PN ---
Date of Service: 11/20/18 (POD#1) S: Today this patient is alert and oriented times x3, cooperative and feeling good about his left plantar forefoot. O: Afebrile, VSS. WBCs 10.3, n71%. Hemoglobin is 12.1, stable. The 2nd toe has resolved concerns of cyanosis that was most likely due to injection of Marcaine at end of operation. The bandage is clean dry and intact. Debridement of the plantar puncture site was basically De-isma the callus over a focused blister of purulent material with a floor of granulation tissue. Incision from above to the second MTP joint also revealed purulent material. Irrigation with 2L normal saline (+1gm/L vancomycin and 250,000 units per liter polymyxin) is probable cause for bump in trough level of vancomycin taken at 2000 hrs. last night. Today's level reported as 6.5. Gram stain and cultures pending. Gram stain probably best opportunity to have incised on infecting organism as level of vancomycin most likely to inhibit growth for analysis. A: Patient doing well postop day 1 P: Plan to change bandage tomorrow if wound clinic consult delayed over weekend. We will change to normal saline wet to dry dressings unless otherwise advised.
--- NOTE | 2018-11-20 13:41 | PN ---
Date of Progress Note: 11/20/2018 History: The patient is seen and examined. Chart reviewed and case discussed with RN and Dr. Ayala . The patient went for debridement yesterday due to abscess on his affected foot. Did well postoper atively. Still having some pain. Medications: List reviewed. Physical Examination: Vital Signs: Temperature 98.2, heart rate 76, blood pressure 143/70, respirations 18, OS 95% on room air. General: Awake, alert, oriented x3. No acute distress. Obese male. CV: S1, S2. Regular rate and rhythm. Peripheral pulses present. Respiratory: Moving air well bilaterally. No wheezing gastrointestinal. Gastrointestinal: Abdomen is soft, nontender, nondistended. Positive bowel sounds. Extremities: No clubbing or cyanosis. Edema in the left foot. Skin: The patient has left foot erythema, plantar aspect, bandaged over the plantar aspect from rece nt surgery. Neurologic: Nonfocal and decreased sensation to light touch lower extremities bilaterally. Laboratory Data: Sodium 140, potassium 3.6, chloride 106, CO2 28, BUN 10, creatinine 0.82, glucose 1 28, calcium 8.4, albumin 2.6. WBC 10.3, H and H 12.1 and 34.7, platelets 323. Blood cultures no fito wth to date. Wound cultures are pending. Assessment And Plan: A 48-year-old male with: 1.Left lower extremity cellulitis of the foot secondary to diabetic foot infection after trauma with nail. MRI shows osteomyelitis. He is now status post incision and drainage secondary to abscess fo rmation, postoperative day #1. Blood cultures are negative. Wound cultures are still pending. Plan is for outpatient antibiotics. The patient does not have funding for LTAC or SNF. 2.Gross hematuria, resolved. We will continue to hold Lovenox. The patient will need to follow up with Urology as an outpatient if there is any recurrence for cystoscopy. 3.Failure of outpatient treatment. 4.Diabetes mellitus type 2 with long-term use of insulin with hyperglycemia, insulin dose adjusted i ncreased Lantus at bedtime. The patient continues to be noncompliant with his diet. He had caramel popcorn on his bedside. The patient is counseled. 5.Osteomyelitis of the left foot, proximal phalanx second toe along the plantar aspect. Continue IV antibiotics. Case management working on setting up antibiotics as outpatient. 6.Essential hypertension, stable. 7.Obesity, BMI 37. 8.Injured his left foot, initial encounter. 9.Noncompliance, intentional. Deep vein thrombosis prophylaxis with SCDs. No chemical anticoagulat ion due to gross hematuria. Hemoglobin is stable. Plan: Discharge once IV antibiotics have been set up. /BRIAN Voice ID: [id number] Report ID: [id number]
[2018-11-20] MEDS: INSULIN GLARGINE 100 UNITS/ML SQ SCH (21:13)
[2018-11-21 04:24] LABS: Absolute Lymphocytes (CBC) 2.6 K/uL (0.7-4.9); Absolute Monocytes 0.9 K/uL (0.1-1.3); Absolute Neutrophil 5.5 K/uL (1.8-8.0); Basophils % 0.9 % (0-1.3); Eosinophils % 3.7 % (0-4.4); Hematocrit 34.5 % (39.6-49.0); Lymphocytes % 27.7 % (15.3-44.8); MPV 7.1 fL (7.6-11.3); Monocytes % 9.1 % (3.3-12.3); RBC Red Blood Cell Count 3.86 M/uL (4.33-5.43)
[2018-11-21 04:41] LABS: ALT/SGPT 15 U/L (12-78); AST/SGOT 10 U/L (15-37); Albumin 2.6 g/dL (3.4-5.0); Alkaline Phosphatase 71 U/L (45-117); BUN Blood Urea Nitrogen 14 mg/dL (7-18); Bicarbonate 27 mmol/L (21-32); Bilirubin Total 0.3 mg/dL (0.2-1.0); Glucose Level 160 mg/dL (74-106); Potassium 3.8 mmol/L (3.5-5.1); Protein, Total 7.2 g/dL (6.4-8.2); Sodium Level 142 mmol/L (136-145)
[2018-11-21] MEDS ORDERED: VANCOMYCIN 1 GM/VIAL ONE (05:18)
[2018-11-21] MEDS ORDERED: POTASSIUM 25 MEQ EFFERV TAB PO ONE (05:20)
[2018-11-21] MEDS ORDERED: NA CHLORIDE 0.9% 500 ML ONE (05:21)
[2018-11-21] MEDS: VANCOMYCIN 2 GM in NA CHLORIDE 0.9% 500 ML IVPB SCH (05:42)
[2018-11-21] MEDS: HYDROCODONE/APAP 7.5/325 MG TAB PO PRN ×2 (05:42→21:50)
[2018-11-21] MEDS: INSULIN -REGULAR HUMAN 50 UNIT/0.5 ML ML SQ SCH ×4 (07:30→21:51)
[2018-11-21] MEDS: LISINOPRIL 10 MG TAB PO SCH (08:48)
[2018-11-21] MEDS: CEFEPIME/SWI 2gm 2 GM/20 ML SYR IV SCH ×2 (08:48→21:52)
[2018-11-21] MEDS: glipiZIDE 5 MG TAB PO SCH ×2 (08:48→17:37)
[2018-11-21] MEDS: MORPHINE 2 MG/ML SYR IV PRN ×2 (08:51→15:44)
--- NOTE | 2018-11-21 16:01 | PN ---
Date of Progress Note: 11/21/2018 Subjective: The patient is seen and examined. Chart reviewed, and case discussed with RN. No acute events overnight. Medications: List reviewed. Physical Examination: Vital Signs: Temperature 98.2, heart rate 80, blood pressure 139/81, respirations 20, O2 of 94% on r oom air. General: Awake, alert, oriented x3. No acute distress. An obese male. CV: S1, S2. Regular rate and rhythm. Peripheral pulses present. Respiratory: Moving air well bilaterally. No wheezing. Gastrointestinal: Abdomen is soft, nontender, nondistended. Positive bowel sounds. Extremities: No clubbing or cyanosis. Edema of the left foot. Skin: Left foot, plantar aspect, with some erythema, bandaged, improving. Neurologic: Nonfocal. Decreased sensation to light touch, bilateral lower extremities. Laboratory Data: Sodium 142, potassium 3.8, chloride 107, CO2 of 27, BUN 14, creatinine 0.8, glucose 160, calcium 8.5. WBC 9.5, H and H 11.8 and 34.5, platelets 343. Blood cultures, no growth to date . Wound cultures growing 3+ Staph coagulase positive. Assessment: A 48-year-old male with: 1.Left lower extremity cellulitis including the foot secondary to diabetic foot infection after trau ma with nail. Positive for osteo. Status post incision and drainage secondary to abscess formation. Postoperative day #2. Wound cultures growing coagulase positive Staph, likely methicillin-resistan t Staphylococcus aureus. We will continue IV antibiotics, and follow up on ID and sensitivity. 2.Osteomyelitis of left foot, proximal phalanx second toe along the plantar aspect. We will need lo ng-term IV antibiotics as outpatient. 3.Failure of outpatient treatment. 4.Gross hematuria, resolved. Hold Lovenox. It was being used for deep venous thrombosis prophylaxi s. Encourage ambulation and we will use SCDs. 5.Essential hypertension, stable. 6.Obesity, BMI 37. 7.Diabetes mellitus type 2 with long-term use of insulin with hyperglycemia. Insulin dose adjusted. The patient is noncompliant. 8.Injury of the left foot, initial encounter. 9.Noncompliance, intentional. Plan: Discharge once IV antibiotics have been set up. /BRIAN Voice ID: [id number] Report ID: [id number]
[2018-11-21] MEDS: INSULIN GLARGINE 100 UNITS/ML SQ SCH (21:52)
--- NOTE | 2018-11-21 23:22 | P.PN ---
Date of Service: 11/21/18 (POD#2) S: Patient is alert and oriented, anxious to have his bandage change today.. O: Afebrile, VSS. WBCs 9.5.3, n59%. Hemoglobin is 11.8, stable. The 2nd toes appearance continues to match that of the other toes. The bandage was clean dry and intact. Plantar and Dorsal wounds were irrigated with normal saline and covered with a wet to dry dressing of normal saline. A: Patient doing well postop day 2 P: Expect wound clinic consult tomorrow. Arrangements been made for outpatient IV antibiotic therapy [facility].
[2018-11-22] MEDS: VANCOMYCIN 2 GM in NA CHLORIDE 0.9% 500 ML IVPB SCH ×2 (00:06→16:26)
[2018-11-22] MEDS: MORPHINE 2 MG/ML SYR IV PRN ×2 (00:08→21:59)
[2018-11-22 06:33] LABS: BUN Blood Urea Nitrogen 16 mg/dL (7-18); Bicarbonate 27 mmol/L (21-32); Glucose Level 202 mg/dL (74-106); Potassium 3.9 mmol/L (3.5-5.1); Sodium Level 139 mmol/L (136-145)
[2018-11-22] MEDS ORDERED: POTASSIUM 25 MEQ EFFERV TAB PO ONE (06:36)
[2018-11-22] MEDS: glipiZIDE 5 MG TAB PO SCH ×2 (09:35→16:25)
[2018-11-22] MEDS: INSULIN -REGULAR HUMAN 50 UNIT/0.5 ML ML SQ SCH ×4 (09:35→22:00)
[2018-11-22] MEDS: LISINOPRIL 10 MG TAB PO SCH (09:35)
[2018-11-22] MEDS: CEFEPIME/SWI 2gm 2 GM/20 ML SYR IV SCH ×2 (09:36→22:00)
[2018-11-22] MEDS: HYDROCODONE/APAP 7.5/325 MG TAB PO PRN ×2 (10:13→16:26)
[2018-11-22] MEDS: MEDIHONEY 44 ML TOPICAL TUBE TOP SCH (16:25)
--- NOTE | 2018-11-22 20:29 | PN ---
Subjective: The patient is lying in bed. Had surgical debridement done to his foot. Denies any hea dache, nausea, vomiting, chest pain, abdominal pain, constipation. Continue to have pain in his foot . Objective: Vital Signs: Temperature 98, pulse 72, respirations 18, blood pressure 117/73. Lungs: Clear to auscultation. Heart: S1, S2. Regular. Abdomen: Soft, nontender. Bowel sounds present. Extremity: Left foot surgical wound noted. Laboratory Data: Shows WBC 9.5 from yesterday, hemoglobin 11.8, platelets are 343. Chemistry shows sodium 139, potassium 3.9, chloride 105, bicarb 27, BUN 16, creatinine 0.86, glucose 202. Assessment And Plan: Left foot osteomyelitis and ulceration, status post debridement. Recommend to apply Medihoney to the wound site. We will follow the patient as needed. Continue antibiotic and hearn pportive care. NF/MODL Voice ID: [id number] Report ID: [id number]
--- NOTE | 2018-11-22 21:32 | PN ---
Date of Progress Note: 11/22/2018 Subjective: The patient is seen and examined. Chart reviewed and case discussed with RN. The patie nt is doing okay and does complain of some pain on the back of his leg and some muscle spasms. Swell ing overall has improved. Medications: List reviewed. Physical Examination: Vital Signs: Temperature 98, heart rate 72, blood pressure 117/73, respirations 18, O2 98% on room a ir. General: Awake, alert, oriented x3, in some mild distress, ill-appearing male, obese. CV: S1, S2. Regular rate and rhythm. Peripheral pulses present. Respiratory: Moving air well bilaterally. No wheezing. Gastrointestinal: Abdomen is soft, nontender, nondistended. Positive bowel sounds. No guarding or rigidity. Extremities: No clubbing, cyanosis. Minimal edema of the left foot. Neurologic: Nonfocal. Skin: The patient does have an incision site on his left plantar aspect of his foot, clean, dry, int act, bandaged. Laboratory Data: Sodium 139, potassium 3.9, chloride 105, CO2 27, BUN 16, creatinine 0.86, glucose 2 02, calcium 8.4. WBC 9.5, H and H 11.8 and 34.5, platelets 343. Blood cultures, no growth in 5 days . Wound cultures preliminarily growing Staph coagulase positive. Assessment And Plan: A 48-year-old male with: 1.Left lower extremity cellulitis including foot secondary to diabetic foot infection after trauma w ith nail. The patient does have osteomyelitis as well. Now status post I and D for abscess formatio n. Postoperative day #3. Wound cultures growing coagulase positive Staph likely MRSA. We will cont inue IV antibiotics and follow up on final ID and sensitivity. 2.Osteomyelitis of left foot, proximal phalanx second toe along with plantar aspect. He will need l wm-term antibiotics as an outpatient. ID recommends IM Rocephin daily plus doxycycline, will need m inimum of 4 weeks. We will clarify further with Infectious Disease. 3.Failure of outpatient treatment. 4.Gross hematuria, resolved. Continue to hold Lovenox. The patient has been evaluated by Dr. Simmons 's, recommends outpatient cystoscopy. 5.Essential hypertension, stable. 6.Obesity, BMI 37. 7.Diabetes mellitus type 2 with long-term use of insulin with hyperglycemia. Insulin dose has been adjusted. The patient continues to be noncompliant with his diet, had Franklin's bag in his room tod ay. We will adjust insulin dose as necessary. 8.Injury to the left foot, initial encounter. 9.Noncompliance, intentional. 10.Deep vein thrombosis prophylaxis with SCDs. No chemical anticoagulation due to hematuria. Plan: Discharge once antibiotics have been set up. The patient will be on IM Rocephin and oral doxy cycline. /BRIAN Voice ID: [id number] Report ID: [id number]
[2018-11-22] MEDS: INSULIN GLARGINE 100 UNITS/ML SQ SCH (22:01)
[2018-11-23] MEDS: HYDROCODONE/APAP 7.5/325 MG TAB PO PRN ×3 (03:09→17:57)
[2018-11-23 06:33] LABS: Absolute Lymphocytes (CBC) 2.7 K/uL (0.7-4.9); Absolute Monocytes 0.8 K/uL (0.1-1.3); Basophils % 1.1 % (0-1.3); Eosinophils % 3.2 % (0-4.4); Hematocrit 36.9 % (39.6-49.0); Lymphocytes % 27.1 % (15.3-44.8); MPV 6.7 fL (7.6-11.3); Monocytes % 7.6 % (3.3-12.3); RBC Red Blood Cell Count 4.11 M/uL (4.33-5.43)
[2018-11-23 06:49] LABS: BUN Blood Urea Nitrogen 15 mg/dL (7-18); Bicarbonate 29 mmol/L (21-32); Glucose Level 173 mg/dL (74-106); Potassium 3.9 mmol/L (3.5-5.1); Sodium Level 139 mmol/L (136-145)
[2018-11-23] MEDS: INSULIN -REGULAR HUMAN 50 UNIT/0.5 ML ML SQ SCH ×4 (07:30→16:30)
[2018-11-23] MEDS: LISINOPRIL 10 MG TAB PO SCH (08:48)
[2018-11-23] MEDS: glipiZIDE 5 MG TAB PO SCH ×2 (08:48→16:44)
[2018-11-23] MEDS: CEFEPIME/SWI 2gm 2 GM/20 ML SYR IV SCH (08:49)
[2018-11-23] MEDS ORDERED: POTASSIUM CL SA 10 MEQ TAB PO ONE (09:00)
[2018-11-23] MEDS: MEDIHONEY 44 ML TOPICAL TUBE TOP SCH (09:00)
[2018-11-23] MEDS: VANCOMYCIN 2 GM in NA CHLORIDE 0.9% 500 ML IVPB SCH (11:00)
--- NOTE | 2018-11-23 14:24 | P.PN ---
Subjective Date of Service: 11/23/18 Primary Care Provider: None Chief Complaint: nail puncture cellulitis left foot, failed outpt. p.o. abx tx Subjective: No C/O voiced, Improving Patient seen and examined at bedside. No family at bedside. Chart reviewed and case discussed with nursing staff. Review of Systems 10-point ROS is otherwise unremarkable Physical Examination - Vital Signs Temperature: 97.8 F Blood Pressure: 127/82 Pulse: 76 Respirations: 18 Pulse Ox (%): 96 - Physical Exam General: Alert, In no apparent distress, Oriented x3 HEENT: Atraumatic, PERRLA, EOMI Neck: Supple, JVD not distended Respiratory: Clear to auscultation bilaterally, Normal air movement Cardiovascular: Regular rate/rhythm, Normal S1 S2 Gastrointestinal: Normal bowel sounds, No tenderness Musculoskeletal: No tenderness Integumentary: Other (an incision site on his left plantar aspect of his foot, clean, dry, intact, bandaged.) Neurological: Normal speech, Normal tone, Normal affect Lymphatics: No axilla or inguinal lymphadenopathy Assessment And Plan - Current Problems (Diagnosis) (1) Cellulitis of left foot Onset Date: ~11/07/18 Current Visit: Yes Status: Acute (2) Failure of outpatient treatment Onset Date: 11/16/18 Current Visit: Yes Status: Acute (3) Diabetes mellitus Onset Date: 11/16/18 Current Visit: Yes Status: Chronic Qualifiers: Diabetes mellitus type: type 2 Diabetes mellitus skilled nursing insulin use: with termite control service representative use Diabetes mellitus complication status: with hyperglycemia Qualified Code(s): E11.65 - Type 2 diabetes mellitus with hyperglycemia; Z79.4 - prison (current) use of insulin (4) Hypertension Onset Date: 11/16/18 Current Visit: Yes Status: Chronic Qualifiers: Hypertension type: essential hypertension Qualified Code(s): I10 - Essential (primary) hypertension (5) Morbid obesity Onset Date: 11/16/18 Current Visit: Yes Status: Chronic (6) Injury of foot, left Onset Date: 11/16/18 Current Visit: Yes Status: Acute Qualifiers: Encounter type: initial encounter Qualified Code(s): S99.922A - Unspecified injury of left foot, initial encounter (7) Noncompliance Current Visit: Yes Status: Chronic (8) Osteomyelitis Current Visit: Yes Status: Acute Qualifiers: Osteomyelitis type: unspecified type Osteomyelitis location: foot Laterality: left Qualified Code(s): M86.9 - Osteomyelitis, unspecified - Plan This is a 48-year-old male with: Cellulitis of left foot. Failure of outpatient treatment Left foot injury, stepping on a nail Left foot osteomyelitis, proximal phalanx second toe along with plantar aspect Status post I and D for abscess formation, postop day 4. Wound cultures positive for Continue IV antibiotics at this time. After discharge, ID recommends IM Rocephin and oral doxycycline for a minimum of 4 weeks. He is currently pending set up for outpatient antibiotics patient is not having any resources. Diabetes mellitus type 2,insulin-dependent, with hyperglycemia Noncompliance, intentional Accu-Cheks ACHS Mild sliding scale insulin Continue home insulin. Hypertension Will resume home medications once reconciled Continue to monitor blood pressure and make adjustments as needed. Morbid obesity, BMI of 37.0 Gross hematuria, resolved Continue to hold Lovenox. Urology consulted. Recommendations appreciated. Recommends outpatient stocks goopy. Information will be provided upon discharge. DVT prophylaxis: SCDs. Hold chemical and coagulation due to hematuria. GI prophylaxis: None Diet: 1800 diabetic Plan: Discharge once antibiotics have been set up. The patient will be on IM Rocephin and oral doxycycline.
--- NOTE | 2018-11-24 23:19 | OP ---
Date of Procedure: 11/19/2018 Surgeon: James Ayala MD Bending Frame Operator: James Ayala M.D. Preoperative Diagnosis: Infection, left forefoot, with osteomyelitis of proximal phalanx second toe. Postoperative Diagnosis: Infection, left forefoot, with osteomyelitis of proximal phalanx second toe . Primary Procedures: Incision and drainage of abscess, left plantar forefoot; and debridement of oste omyelitis, proximal phalanx, second toe. Indications: This 48-year-old male has suffered a nail puncture wound to the left forefoot. He was treated as an outpatient, but that the patient failed. He came as an inpatient with cellulitis for t he left forefoot. The patient is diabetic. The MRI scan has shown involvement of the proximal phala nx of the second toe. The patient is taken to surgery for incision and drainage and irrigation of ab scess, left plantar forefoot and second MTP joint. Technique: The patient was taken to the operating room and given a general anesthetic. He was place d on the operative table with a bolster under the left hip and a tourniquet on the proximal thigh. T he limb was prepped in the usual manner and exsanguination carried out with an Esmarch bandage, and t he tourniquet was raised to 300 mmHg and left up for 58 minutes. At the beginning of the case, the p lantar aspect of the forefoot was inspected. There was a tense nodule there for a couple of days, an d it was turning soft and more fluid-filled. The callosity of the forefoot was debrided as a thicken ed blister with sharp debridement around the margins. A greenish yellow pus was debrided. The floor of the abscess was covered with granulation tissue. Mild scraping was done there while irrigation w as carried out with a portion of 2 L of normal saline with vancomycin 1 g/L and polymyxin 250,000 uni ts/L. Once the debridement and irrigation was completed on the volar side of the foot, attention was turned to the dorsum of the foot for an approach to the second MTP joint. A longitudinal incision 4 cm long was made in line with the second toe. The incision was carried sharply down to the extensor tendon. The extensor tendon was mobilized and retracted in a lateral direction. This allowed inspe ction of the dorsal aspect of the second MTP joint. A transverse incision was used to open the MTP j oint on its dorsal aspect. This produced small portions of greenish yellow purulence that was irriga nanci again prolifically with Simpulse lavage using normal saline with vancomycin 1 g/L and polymyxin 2 50,000 units/L. The total amount of 2 L of irrigation were used on the plantar and dorsal aspect of the foot, and then Marcaine was injected around the margins of the incisions. The extensor tendon wa s allowed to slip back into the midline, covering the rent in the joint capsule. Subcutaneous closur e was effected with 4-0 Vicryl interrupted sutures to approximate the subcutaneous edges. Horizontal mattress stitches with #2 Ethilon were used for closure. The first and second web spaces were injec nanci with the 0.5% Marcaine plain, 10 mL. Afterwards, it was noted that there was cyanosis involving the second toe, and the horizontal mattress stitches done with nylon were removed. This allowed the toe to brighten up with increased circulation. A wet-to-dry normal saline bandage was applied to the plantar and dorsal aspect of the left forefoot, and the patient was taken to the recovery room, ruth jett tolerated this procedure well. PEYTON/BRIAN Voice ID: [id number] Report ID: [id number]
--- NOTE | 2018-11-25 18:46 | P.DS ---
Admission Date: 11/15/18 Discharge Date: 11/25/18 Primary Care Provider: None Disposition: ROUTINE DISCHARGE Discharge Condition: GOOD Reason for Admission: nail puncture cellulitis left foot, failed outpt. p.o. abx tx - Problems (1) Cellulitis of left foot Onset Date: ~11/07/18 Status: Acute (2) Failure of outpatient treatment Onset Date: 11/16/18 Status: Acute (3) Diabetes mellitus Onset Date: 11/16/18 Status: Chronic Qualifiers: Diabetes mellitus type: type 2 Diabetes mellitus [facility] insulin use: with termite control representative use Diabetes mellitus complication status: with hyperglycemia Qualified Code(s): E11.65 - Type 2 diabetes mellitus with hyperglycemia; Z79.4 - half-way (current) use of insulin (4) Hypertension Onset Date: 11/16/18 Status: Chronic Qualifiers: Hypertension type: essential hypertension Qualified Code(s): I10 - Essential (primary) hypertension (5) Morbid obesity Onset Date: 11/16/18 Status: Chronic (6) Injury of foot, left Onset Date: 11/16/18 Status: Acute Qualifiers: Encounter type: initial encounter Qualified Code(s): S99.922A - Unspecified injury of left foot, initial encounter (7) Noncompliance Status: Chronic (8) Osteomyelitis Status: Acute Qualifiers: Osteomyelitis type: unspecified type Osteomyelitis location: foot Laterality: left Qualified Code(s): M86.9 - Osteomyelitis, unspecified Brief History of Present Illness: This is a 48-year-old male with history diabetes mellitus type 2, hypertension admitted for cellulitis after stepping on a nail. Patient, he stepped on a nail but 2 weeks ago and he went to his primary care physician. He was given doxycycline and Levaquin as an outpatient. Per patient, even after the antibiotics he started developing fever, swelling got worse. It was hurting more in the redness started to spread. Thursday prior to admission, he stated that he was unable to stand or walk too much wanted due to the pain. This is why he came to the ER. He states that his tetanus status is up to date, though does not have any records. In the ER, his labs were positive for a WBC count of 13.9 and a glucose of 325. Otherwise they were unremarkable. Foot x-ray was done, negative for any foreign body, evidence of osteomyelitis or fractures. He remained hemodynamically stable in the ER. He also received 1 dosage of IV Zosyn in the ER. At the time of my exam, he was alert oriented x3, in no acute distress and hemodynamically stable. The blood pressure was slightly elevated. Hospital Course: This is a 48-year-old male with: Cellulitis of left foot. Failure of outpatient treatment Left foot injury, stepping on a nail Left foot osteomyelitis, proximal phalanx second toe along with plantar aspect Patient was admitted for 7 a chris nail, left foot injury. He was found to have a left foot osteomyelitis. He was started on IV antibiotics. General surgery was consulted. Patient underwent an I and D for abscess formation. His wound cultures were positive for Staph aureus, sensitive to multiple oral antibiotics. Infectious disease was consulted as well. They have recommended oral doxycycline and Levaquin for 4 weeks. Social work was involved to help set up outpatient antibiotics as patient not have any resources. Diabetes mellitus type 2,insulin-dependent, with hyperglycemia Noncompliance, intentional Accu-Cheks ACHS Mild sliding scale insulin He was continued on his home insulin. No other medication changes made. Hypertension He remained stable, no medication changes made to his hypertension regimen. Morbid obesity, BMI of 37.0 Gross hematuria, resolved Patient stay was complicated by gross hematuria. Lovenox was held and neurology was consulted. Patient Rich urea ceased after stopping Lovenox and more trouble with this. He was given urology information upon discharge for outpatient followup if problem returned. Patient otherwise remained stable throughout the stay. He was discharged on oral doxycycline and Levaquin for 4 weeks Vital Signs/Physical Exam: Temp Pulse Resp BP Pulse Ox 97.9 F 82 17 133/79 95 11/23/18 16:00 11/23/18 16:00 11/23/18 16:00 11/23/18 16:00 11/23/18 16:00 General: Alert, In no apparent distress, Oriented x3 HEENT: Atraumatic, PERRLA, EOMI Neck: Supple, JVD not distended Respiratory: Clear to auscultation bilaterally, Normal air movement Cardiovascular: Regular rate/rhythm, Normal S1 S2 Gastrointestinal: Normal bowel sounds, No tenderness Musculoskeletal: No tenderness Integumentary: No rashes Neurological: Normal speech, Normal tone, Normal affect Lymphatics: No axilla or inguinal lymphadenopathy Laboratory Data at Discharge: WBC 9.9 K/uL (4.3-10.9) 11/23/18 06:22 Hgb 12.6 g/dL (13.6-17.9) L 11/23/18 06:22 Hct 36.9 % (39.6-49.0) L 11/23/18 06:22 Plt Count 368 K/uL (152-406) 11/23/18 06:22 Sodium 139 mmol/L (136-145) 11/23/18 06:22 Potassium 3.9 mmol/L (3.5-5.1) 11/23/18 06:22 BUN 15 mg/dL (7-18) 11/23/18 06:22 Creatinine 0.79 mg/dL (0.55-1.3) 11/23/18 06:22 Glucose 173 mg/dL (74-106) H 11/23/18 06:22 Phosphorus 3.9 mg/dL (2.5-4.9) 11/19/18 05:15 Magnesium 2.2 mg/dL (1.8-2.4) 11/19/18 05:15 Total Bilirubin 0.3 mg/dL (0.2-1.0) 11/21/18 04:01 AST 10 U/L (15-37) L 11/21/18 04:01 ALT 15 U/L (12-78) 11/21/18 04:01 Alkaline Phosphatase 71 U/L (45-117) 11/21/18 04:01 Home Medications: Glipizide [Glucotrol] 5 mg PO BID 11/15/18 Lisinopril 10 mg PO DAILY 11/15/18 Metformin ER [Glucophage ER*] 1,000 mg PO DAILY 11/15/18 Codeine/APAP [Tylenol W/Codeine #3 tab] 1 tab PO Q6HP PRN #12 tab 11/23/18 Doxycycline Hyclate 100 mg PO Q12HR #28 tablet 11/23/18 Insulin Glargine Human [Lantus*] 15 units SQ BEDTIME #1 ml 11/23/18 Medihoney [Medihoney Woundcare Gel*] 1 appl TOP DAILY #1 tube 11/23/18 levoFLOXacin [Levaquin] 750 mg PO DAILY #14 tab 11/23/18 New Medications: Codeine/APAP [Tylenol W/Codeine #3 tab] 1 tab PO Q6HP PRN #12 tab PRN Reason: Pain Doxycycline Hyclate 100 mg PO Q12HR #28 tablet Insulin Glargine Human [Lantus*] 15 units SQ BEDTIME #1 ml levoFLOXacin [Levaquin] 750 mg PO DAILY #14 tab Medihoney [Medihoney Woundcare Gel*] 1 appl TOP DAILY #1 tube Patient Discharge Instructions: 1) please follow up with the primary care physician in 2-3 days. Please pick one from the list provided. This is very important for you to follow up. 2) Please follow up with Dr. Simmons 2-3 weeks. New medications: Levaquin, doxycycline. These are both antibiotics for the infection. You will take these for total of 14 days as prescribed. Diet: ADA Activity: Ad naye Followup: Santosh Simmons MD [ACTIVE - CAN ADMIT] - Bandar Gracia MD [ACTIVE - CAN ADMIT] - Time spent managing pt's care (in minutes): 55
== END 2018-11-23 18:54 | disposition home or self-care (01) | DRG 623 ==
LOC: ER 10:26 → ERHOLD 12:27 → 2ND 13:58
PROVIDERS: ADMIT Family Medicine; ATTEND Family Medicine
PROC: 0S9N0ZZ Drainage of Left Metatarsal-Phalangeal Joint, Open Approach (ICD-10-PCS; 2018-11-19)
PROC: 0JBR0ZZ Excision of Left Foot Subcutaneous Tissue and Fascia, Open Approach (ICD-10-PCS; principal; 2018-11-19 12:45)
DX: E11.69 Type 2 diabetes mellitus with other specified complication (principal); L03.116 Cellulitis of left lower limb; L02.612 Cutaneous abscess of left foot; M86.172 Other acute osteomyelitis, left ankle and foot; B95.61 Methicillin susceptible Staphylococcus aureus infection as the cause of diseases classified elsewhere; Z16.11 Resistance to penicillins; S91.332A Puncture wound without foreign body, left foot, initial encounter; W45.0XXA Nail entering through skin, initial encounter; E11.65 Type 2 diabetes mellitus with hyperglycemia; R31.0 Gross hematuria; I10 Essential (primary) hypertension; Z91.11 Patient's noncompliance with dietary regimen; Z79.4 Long term (current) use of insulin; Z79.899 Other long term (current) drug therapy; E66.01 Morbid (severe) obesity due to excess calories; Z68.36 Body mass index [BMI] 36.0-36.9, adult
CPT/HCPCS: 36415; 76770; 80048; 80053; 80202; 81003; 81015; 82962; 83036; 83735; 84100; 85025; 87040; 87070; 87075; 87077; 87186; 87205; 88304; 90670; 94760; 96365; 96375; 97163; 99285; G0008; G0009; J0692; J1650; J2175; J2270; J2543; J2704; J3010; J7030; Q2035

== ENCOUNTER 2020-11-17 10:17 | Emergency (ER) | payer OTHER, SELFPAY ==
--- OUTSIDE RECORDS SUMMARY | 2020-11-17 10:23 | XMS REPORT | Continuity of Care Document ---
:1970 Author Organization [facility] t Address [address] [place] [address] Care Team Providers Name Role Phone Trinidad Masterson Attending Clinician Doctor Unassigned, Name Attending Clinician Unavailable Denisse SIEGEL, Joe Attending Clinician Adolfo GUSMAN, G Attending Clinician Problems This patient has no known problems. Allergies, Adverse Reactions, Alerts This patient has no known allergies or adverse reactions. Medications This patient has no known medications. Procedures This patient has no known procedures. Encounters Start End Encounter Admission Attending Care Care Encounter Source Date/Time Date/Time Type Type Clinicians Facility Department ID 2020-10-25 2020-10-25 Outpatient [facility] [id number] [facility]:00[facility]00 [facility]00[facility] 2020-07-25 2020-07-25 Emergency LETITIA Fernandez [id number] 12:29:00 16:08:00 Trinidad Sanders [id number] [place] [id number] [place] [id number] 2020-07-25 2020-07-25 Orders Doctor JAVIER [id number] 00:00:00 00:00:00 Only DISHA Wylie [id number] [facility] [id number] 2020-05-20 2020-05-21 Emergency Denisse, TRAUMA [id number] 22:28:00 03:34:00 Kamari Joe [place] [id number] 2020-04-15 2020-04-16 Emergency [facility] [id number] 19:43:26 00:05:00 Soraya Sanders [id number] [place] [id number] [place] [id number] 2020-04-15 2020-04-15 Orders Doctor YAYA [id number] 00:00:00 00:00:00 Only Unassigned, DISHA [id number] [facility] [id number] Results This patient has no known results.
[2020-11-17] MEDS ORDERED: LIDOCAINE 1% 20 ML MDV ONE (10:56)
[2020-11-17] MEDS ORDERED: HYDROCODONE/APAP 10/325 TAB ONE (10:57)
--- NOTE | 2020-11-17 11:08 | ER ---
Nurse's Notes [facility] Name: Adiel Jeff Age: 50 yrs Sex: Male : 1970 Arrival Date: 11/17/2020 Time: 10:22 Bed 20 Private MD: Mukesh Caceres Diagnosis: Cutaneous abscess of head [any part, except face] Presentation: 11/17 10:25 Chief complaint: Patient states: CYST TO SCALP. Coronavirus screen: At this time, the bp client does not indicate any symptoms associated with coronavirus-19. Ebola Screen: No symptoms or risks identified at this time. Initial Sepsis Screen: Does the patient meet any 2 criteria? No. Patient's initial sepsis screen is negative. Does the patient have a suspected source of infection? No. Patient's initial sepsis screen is negative. Risk Assessment: Do you want to hurt yourself or someone else? Patient reports no desire to harm self or others. Onset of symptoms is unknown. 10:25 Method Of Arrival: Ambulatory bp 10:25 Acuity: DURAN 3 bp Triage Assessment: 10:55 General: Appears in no apparent distress. comfortable, Behavior is cooperative, bp appropriate for age, anxious. Pain: Complains of pain in scalp. EENT: No deficits noted. Neuro: No deficits noted. Cardiovascular: No deficits noted. Respiratory: No deficits noted. GI: No signs and/or symptoms were reported involving the gastrointestinal system. : No signs and/or symptoms were reported regarding the genitourinary system. Derm: No deficits noted. Musculoskeletal: No deficits noted. Historical: - Allergies: 10:55 No Known Allergies; bp - Home Meds: 10:55 Glipizide Oral [Active]; lisinopril Oral [Active]; Metformin Oral [Active]; bp - PMHx: 10:55 Diabetes - NIDDM; Hypertension; bp - Immunization history:: Adult Immunizations unknown. - Social history:: Smoking status: unknown. - Family history:: not pertinent. - Hospitalizations: : No recent hospitalization is reported. Screenin:56 Abuse screen: Denies threats or abuse. Denies injuries from another. Nutritional bp screening: No deficits noted. Tuberculosis screening: No symptoms or risk factors identified. Fall Risk None identified. Assessment: 10:56 General: SEE TRIAGE NOTE. bp 11:40 Reassessment: PT D/C HOME AMBULATORY, DX WITH CUTANEOUS ABSCESS. bp Vital Signs: 10:25 BP 145 / 79; Pulse 72; Resp 16; Temp 98; Pulse Ox 98% ; Weight 121.56 kg; Height 5 ft. bp 11 in. (180.34 cm); 11:40 BP 137 / 71; Pulse 77; Resp 17; Temp 98; Pulse Ox 98% ; bp 10:25 Body Mass Index 37.38 (121.56 kg, 180.34 cm) bp ED Course: 10:22 Patient arrived in ED. ag5 10:22 Mukesh Caceres DO is Private Physician. ag5 10:27 Silvestre Akbar MD is Attending Physician. rn 10:30 Phil Gutierrez RN is Primary Nurse. bp 10:45 Assist provider with I \T\ D: of an abscess on Set up I\T\D tray. Performed by Silvestre Akbar bp Culture sent to lab. Wound packed. iodoform gauze, Dressing with 4X4s, Patient tolerated well. 10:53 Triage completed. bp 10:55 Arm band placed on. bp 10:56 Patient has correct armband on for positive identification. Bed in low position. Call bp light in reach. Side rails up X2. 10:56 Patient did not have IV access during this emergency room visit. bp 11:06 Mukesh Caceres DO is Referral Physician. rn Administered Medications: 10:41 Drug: Lidocaine (1 %) 1 vials Volume: 20 ml; Route: Infiltration; rb3 10:41 Drug: [place] 10 mg-325 mg 1 tabs Route: PO; rb3 11:39 Follow up: Response: Pain is decreased bp 11:30 Drug: Clindamycin 600 mg Route: IM; Site: right gluteus; bp 11:40 Follow up: Response: No adverse reaction bp 11:30 Drug: morphine 4 mg Route: IM; Site: right gluteus; bp 11:40 Follow up: Response: Pain is decreased bp Point of Care Testing: Blood Glucose: 10:45 Blood Glucose: 367 mg/dL; rb3 Ranges: Outcome: 11:06 Discharge ordered by MD. rn 11:42 Discharged to home ambulatory, with family. bp 11:42 Condition: stable 11:42 Discharge instructions given to patient, Instructed on discharge instructions, follow up and referral plans. medication usage, wound care, Demonstrated understanding of instructions, follow-up care, medications, wound care, Prescriptions given X 3. 11:43 Patient left the ED. bp Addendum: 11/19/2020 16:00 Addendum: Culture Results: Positive wound culture. No further action required. Bacteria a a5 sensitive to prescribed antibiotic. Signatures: Silvestre Akbar MD MD rn Calderon, Audri RN RN aa5 Phil Gutierrez RN RN Lucero Moe 5 Yelena Gomez, RN RN rb3 Corrections: (The following items were deleted from the chart) 11/17 11:42 10:56 No provider procedures requiring assistance completed. bp bp
--- NOTE | 2020-11-17 11:08 | EDPHYS ---
Physician Documentation [facility] Name: Adiel Jeff Age: 50 yrs Sex: Male : 1970 Arrival Date: 11/17/2020 Time: 10:22 Bed 20 Private MD: Mukesh Caceres ED Physician Silvestre Akbar HPI: 11/17 10:35 This 50 yrs old Male presents to ER via Unassigned with complaints of abscess. rn 10:35 The patient presents with an abscess of the scalp, the patient presents with a swollen rn area of the scalp. Description: The affected area is moderate sized, erythematous, fluctuant, swollen, warm. Onset: The symptoms/episode began/occurred 2 day(s) ago. Possible cause(s): unknown. Modifying factors: the symptoms are alleviated by nothing, the symptoms are aggravated by touching. Severity of symptoms: At their worst the symptoms were moderate, in the emergency department the symptoms are unchanged. The patient has experienced similar episodes in the past. Reports noticed "a pimple" on scalp 2 days ago, now larger and more painful. Reports diabetes on oral meds, no fever. No trauma. has happened twice before. Seen by pcp and sent here for eval.. Historical: - Allergies: 10:55 No Known Allergies; bp - Home Meds: 10:55 Glipizide Oral [Active]; lisinopril Oral [Active]; Metformin Oral [Active]; bp - PMHx: 10:55 Diabetes - NIDDM; Hypertension; bp - Immunization history:: Adult Immunizations unknown. - Social history:: Smoking status: unknown. - Family history:: not pertinent. - Hospitalizations: : No recent hospitalization is reported. ROS: 10:35 Constitutional: Negative for fever, chills, and weight loss, Cardiovascular: Negative rn for chest pain, palpitations, and edema, Respiratory: Negative for shortness of breath, cough, wheezing, and pleuritic chest pain, Skin: + abscess to posterior scalp Exam: 10:35 Constitutional: This is a well developed, well nourished patient who is awake, alert, rn and in no acute distress. Head/Face: Normocephalic, atraumatic. Skin: + occiput scalp with approx 5in horizontal x 3 inch vertical area of induration and fluctuance with warmth and tenderness, no extension past hairline to neck. Area mobile. Neuro: Awake and alert, GCS 15, oriented to person, place, time, and situation. Cranial nerves II-XII grossly intact. Motor strength 5/5 in all extremities. Sensory grossly intact. Cerebellar exam normal. Normal gait. Vital Signs: 10:25 BP 145 / 79; Pulse 72; Resp 16; Temp 98; Pulse Ox 98% ; Weight 121.56 kg; Height 5 ft. bp 11 in. (180.34 cm); 11:40 BP 137 / 71; Pulse 77; Resp 17; Temp 98; Pulse Ox 98% ; bp 10:25 Body Mass Index 37.38 (121.56 kg, 180.34 cm) bp Procedures: 11:03 I \\T\\ D: Incision and drainage was performed for an abscess of the scalp Prepped with rn Betadine, Anesthetized with 5 ml's 1% Lidocaine. Incised with #11 blade. Drained moderate amount purulent fluid. bloody fluid. Packed with iodoform gauze, Dressing: sterile 4x4 gauze, the patient tolerated the procedure well. MDM: 10:27 Patient medically screened. rn 11:03 Differential diagnosis: abscess, cellulitis. 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 Counseling: I had a detailed discussion with the patient and/or guardian regarding: the historical points, exam findings, and any diagnostic results supporting the discharge/admit diagnosis, lab results, the need for outpatient follow up, to return to the emergency department if symptoms worsen or persist or if there are any questions or concerns that arise at home. Response to treatment: the patient's symptoms have mildly improved after treatment, and as a result, I will discharge patient. Special discussion: I discussed with the patient/guardian in detail that at this point there is no indication for admission to the hospital. It is understood, however, that if the symptoms persist or worsen the patient needs to return immediately for re-evaluation. Based on the history and exam findings, there is no indication for further emergent testing or inpatient evaluation. I discussed with the patient/guardian the need to see the primary care provider for further evaluation of the symptoms. ED course: Pt improved after incision and drainage, cavity probed with cotton swabs and irrigated with saline and betadine, majority of swelling was more induration/cellulitis and not pure abscess cavity. Wound packed. Will dc home with return precautions if worsens. Glucose 300s, but patient states ate prior to arrival, checked glucose this AM and was < 200, vitals stable, nothing otherwise to suggest DKA. . 11/17 10:34 Order name: Wound Culture rn 11/17 10:35 Order name: Wound Culture EDMS 11/17 10:56 Order name: Glucose, Ancillary Testing EDPA 11/17 10:34 Order name: Glucose Level; Complete Time: 10:45 rn 11/17 10:34 Order name: Incision \\T\\ Drainage Setup; Complete Time: 10:45 rn Administered Medications: 10:41 Drug: Lidocaine (1 %) 1 vials Volume: 20 ml; Route: Infiltration; rb3 10:41 Drug: [place] 10 mg-325 mg 1 tabs Route: PO; rb3 11:39 Follow up: Response: Pain is decreased bp 11:30 Drug: Clindamycin 600 mg Route: IM; Site: right gluteus; bp 11:40 Follow up: Response: No adverse reaction bp 11:30 Drug: morphine 4 mg Route: IM; Site: right gluteus; bp 11:40 Follow up: Response: Pain is decreased bp Point of Care Testing: Blood Glucose: 10:45 Blood Glucose: 367 mg/dL; rb3 Ranges: Critical Glucose Levels:Adult <50 mg/dl or >400 mg/dl <40 mg/dl or >180 mg/dl Disposition: 11/17/20 11:06 Discharged to Home. Impression: Cutaneous abscess of head [any part, except face]. - Condition is Stable. - Discharge Instructions: Skin Abscess, Cellulitis, Adult, Incision and Drainage, Wound Packing, Incision and Drainage, Care After. - Prescriptions for Clindamycin HCl 300 mg Oral Capsule - take 1 capsule by ORAL route every 6 hours for 10 days; 40 capsule. Tylenol- Codeine #3 300-30 mg Oral Tablet - take 1 tablet by ORAL route every 6 hours As needed; 15 tablet. Bactrim DS 800- 160 mg Oral Tablet - take 1 tablet by ORAL route every 12 hours for 10 days; 20 tablet. - Medication Reconciliation Form, Thank You Letter, Antibiotic Education, Prescription Opioid Use form. - Follow up: Caceres, Mukesh, DO; When: 1 - 2 days; Reason: Wound Recheck, Recheck today's complaints, Re-evaluation by your physician. - Problem is new. - Symptoms have improved. Signatures: Dispatcher [employer] EDSilvestre Tan MD MD rn Phil Gutierrez RN RN Yelena Mosley RN RN rb3 Corrections: (The following items were deleted from the chart) 11:43 11:06 11/17/2020 11:06 Discharged to Home. Impression: Cutaneous abscess of head [any bp part, except face]. Condition is Stable. Forms are Medication Reconciliation Form, Thank You Letter, Antibiotic Education, Prescription Opioid Use. Follow up: Mukesh Caceres; When: 1 - 2 days; Reason: Wound Recheck, Recheck today's complaints, Re-evaluation by your physician. Problem is new. Symptoms have improved. rn
[2020-11-17] MEDS ORDERED: CLINDAMYCIN IV 150 MG/ML (4 mL) VIAL ONE (11:43)
[2020-11-17] MEDS ORDERED: MORPHINE 4 MG/ML SYR ONE (11:43)
[2020-11-17 11:51] VITALS: BP 137/71; TEMP 98; O2SAT 98
== END 2020-11-17 11:43 | disposition home or self-care (01) ==
LOC: ER 10:17
PROC: 0J900ZZ Drainage of Scalp Subcutaneous Tissue and Fascia, Open Approach (ICD-10-PCS; principal; 2020-11-17)
DX: L02.811 Cutaneous abscess of head [any part, except face] (principal); I10 Essential (primary) hypertension; E11.9 Type 2 diabetes mellitus without complications
CPT/HCPCS: 87070; 87205; 82947; 87077 ×2; 87186 ×2; 96372; 99284; 10060; S0077

== ENCOUNTER 2021-03-22 10:47 | Emergency (ER) | payer OTHER ==
--- OUTSIDE RECORDS SUMMARY | 2021-03-22 10:50 | XMS REPORT | Continuity of Care Document ---
:1970 Author Organization [facility] t Address [address] [place] [address] Care Team Providers Name Role Phone Trinidad Masterson Attending Clinician Doctor Unassigned, Name Attending Clinician Unavailable Denisse SIEGEL, E Attending Clinician Adolfo LEAN CONSULTANT, G Attending Clinician Problems This patient has no known problems. Allergies, Adverse Reactions, Alerts This patient has no known allergies or adverse reactions. Medications This patient has no known medications. Procedures This patient has no known procedures. Encounters Start End Encounter Admission Attending Care Care Encounter Source Date/Time Date/Time Type Type Clinicians Facility Department ID 2020-12-17 2020-12-17 Outpatient [facility] [id number] [facility] 2020-11-17 2020-11-17 Outpatient [facility] [id number] [facility] 2020-11-07 2020-11-07 Outpatient [facility] [id number] [facility] 2020-10-25 2020-10-25 Outpatient [facility] [id number] [facility] 2020-07-25 2020-07-25 Emergency [facility] [id number] 12:29:00 16:08:00 Greysonaruna Bubba Tommy [id number] [place] [id number] [place] [id number] 2020-07-25 2020-07-25 Orders Doctor YAYA [id number] 00:00:00 00:00:00 Only Unassigned, DISHA [id number] [place] [facility] [id number] 2020-05-20 2020-05-21 Emergency Denisse, TRAUMA [id number] 22:28:00 03:34:00 [facility] [id number] 2020-04-15 2020-04-16 Emergency [facility] [id number] 19:43:26 00:05:00 Sorayadevon Sanders [id number] [place] [id number] [place] [id number] 2020-04-15 2020-04-15 Orders Doctor YAYA [id number] 00:00:00 00:00:00 Only Unassigned, DISHA [id number] [place] [facility] [id number] Results This patient has no known results.
[2021-03-22 13:54] LABS: Absolute Lymphocytes (CBC) 2.4 K/uL (0.7-4.9); Basophils % 0.5 % (0-1.3); Hematocrit 38.7 % (39.6-49.0); Lymphocytes % 16.2 % (15.3-44.8); MPV 8.4 fL (7.6-11.3); RBC Red Blood Cell Count 4.37 M/uL (4.33-5.43)
[2021-03-22 13:57] LABS: Protime INR 1.04
[2021-03-22] MEDS ORDERED: LIDOCAINE 1% W/EPI 1:100,000 MDV 20 ML VIAL ONE (14:01)
[2021-03-22] MEDS ORDERED: MORPHINE 4 MG/ML SYR ONE (14:01)
[2021-03-22] MEDS ORDERED: BUPIVACAINE 0.5% PF 10 ML VIAL ONE (14:01)
[2021-03-22] MEDS ORDERED: ONDANSETRON 4 MG/2 ML VIAL ONE (14:01)
[2021-03-22 14:04] LABS: BUN Blood Urea Nitrogen 12 mg/dL (7-18); Bicarbonate 23 mmol/L (21-32); Glucose Level 335 mg/dL (74-106); Sodium Level 133 mmol/L (136-145)
[2021-03-22] MEDS ORDERED: INSULIN -REGULAR HUMAN 50 UNIT/0.5 ML ML ONE (14:44)
[2021-03-22] MEDS ORDERED: CLINDAMYCIN 900MG/D5W 900 MG/50 ML IVPB IV ONE (14:45)
--- NOTE | 2021-03-22 15:15 | ER ---
Nurse's Notes [facility] Name: Adiel Jeff Age: 50 yrs Sex: Male : 1970 Arrival Date: 03/22/2021 Time: 10:53 Bed 13 Private MD: Diagnosis: Cutaneous abscess of head [any part, except face]-left occipital scalp Presentation: 03/22 12:17 Chief complaint: Patient states: abscess to back of head on left side, now has a lot of iw pressure in his head and ear, is diabetic and has high BP. Coronavirus screen: At this time, the client does not indicate any symptoms associated with coronavirus-19. Ebola Screen: Patient negative for fever greater than or equal to 101.5 degrees Fahrenheit, and additional compatible Ebola Virus Disease symptoms Patient denies exposure to infectious person. Patient denies travel to an Ebola-affected area in the 21 days before illness onset. No symptoms or risks identified at this time. Initial Sepsis Screen: Does the patient meet any 2 criteria? No. Patient's initial sepsis screen is negative. Does the patient have a suspected source of infection? No. Patient's initial sepsis screen is negative. Risk Assessment: Do you want to hurt yourself or someone else? Patient reports no desire to harm self or others. Onset of symptoms was March 18, 2021. 12:17 Method Of Arrival: Wheelchair iw 12:17 Acuity: DURAN 3 iw Historical: - Allergies: 12:19 No Known Allergies; iw - PMHx: 12:19 Hypertension; Diabetes - NIDDM; iw - PSHx: 12:19 left toe amputation; iw - Immunization history:: Adult Immunizations Client reports receiving the 1st dose of the Covid vaccine, J\T\J. - Social history:: Smoking status: Patient denies any tobacco usage or history of. Screenin:00 Abuse screen: Denies threats or abuse. Denies injuries from another. Nutritional zb screening: No deficits noted. Tuberculosis screening: No symptoms or risk factors identified. Fall Risk None identified. Assessment: 14:00 General: Appears uncomfortable, Behavior is anxious. Pain: Complains of pain in scalp zb Pain does not radiate. Pain currently is 9 out of 10 on a pain scale. Quality of pain is described as aching, tender, throbbing, Pain began 2-3 days ago. Is continuous, Alleviated by nothing. Noted to be grimacing, moaning. Neuro: Level of Consciousness is awake, alert, Oriented to person, place, time, situation. Cardiovascular: Patient's skin is warm and dry. Respiratory: Airway is patent. Derm: Abscess located on base of the skull is half dollar sized, is hot to touch, is red, is raised. Musculoskeletal: Range of motion: intact in all extremities. 14:45 Reassessment: ECP at bedside. zb 15:00 Reassessment: Patient appears in no apparent distress at this time. Patient and/or zb family updated on plan of care and expected duration. Pain level reassessed. Patient is alert, oriented x 3, equal unlabored respirations, skin warm/dry/pink. 15:40 Reassessment: Patient appears in no apparent distress at this time. Patient and/or zb family updated on plan of care and expected duration. Pain level reassessed. Patient is alert, oriented x 3, equal unlabored respirations, skin warm/dry/pink. c/o pain. notified ECP medication ordered. Vital Signs: 12:17 BP 146 / 94; Pulse 95; Resp 16; Temp 98.5; Pulse Ox 97% on R/A; Weight 120.2 kg; Height iw 5 ft. 11 in. (180.34 cm); 14:44 BP 138 / 83; Pulse 91; Resp 18; Pulse Ox 94% on R/A; zb 15:40 BP 122 / 87; Pulse 88; Resp 16; Pulse Ox 99% on R/A; zb 12:17 Body Mass Index 36.96 (120.20 kg, 180.34 cm) iw ED Course: 10:53 Patient arrived in ED. wm 12:18 Triage completed. iw 12:19 Arm band placed on. iw 12:46 Alex Grover PA is PHCP. cp 12:46 Alex Gaming MD is Attending Physician. cp 13:08 Carissa Bryant RN is Primary Nurse. zb 14:00 Missed attempt(s): 20 gauge in right. Missed attempt(s): 20 gauge in right forearm. zb 14:46 Assist provider with I \T\ D: Set up I\T\D tray. Performed by Alex Gaming MD Culture zb sent to lab. Patient tolerated well. 14:47 Patient has correct armband on for positive identification. Pulse ox on. NIBP on. Door zb closed. Noise minimized. 15:40 IV discontinued, intact, bleeding controlled, No redness/swelling at site. Pressure zb dressing applied. Administered Medications: 14:08 Drug: morphine 4 mg {Note: RASS +1.} Route: IVP; Site: left forearm; zb 14:30 Follow up: Response: No adverse reaction; Marked relief of symptoms; Pain is decreased; zb RASS: Alert and Calm (0) 14:08 Drug: Zofran (Ondansetron) 4 mg Route: IVP; Site: left forearm; zb 14:30 Follow up: Response: No adverse reaction zb 14:12 Drug: Lidocaine-Epinephrine -1%: (1:100,000) 10 ml {Note: at bedside for ecp .} Volume: zb 20 ml; Route: Infiltration; 14:13 Drug: Marcaine (bupivacaine) (0.5 %) 10 ml {Note: at bedside for ecp .} Volume: 10 ml; zb Route: Infiltration; 14:25 Drug: Insulin Regular Human 10 units {Co-Signature: bp (Phil Gutierrez RN).} Route: IVP; zb Site: left forearm; 15:40 Follow up: Response: No adverse reaction; Marked relief of symptoms; Blood sugar is zb lowered 14:28 Drug: Clindamycin 900 mg Route: IVPB; Infused Over: 30 mins; Site: left forearm; zb 15:31 Drug: Bactrim (trimethoprim-sulfamethoxazole) (160 mg-800 mg (DS) 2 tabs Route: PO; zb 15:40 Follow up: Response: Medication administered at discharge. zb Outcome: 15:14 Discharge ordered by . cp 15:40 Discharged to home ambulatory, with family. zb 15:40 Condition: stable 15:40 Discharge instructions given to patient, Instructed on discharge instructions, follow up and referral plans. medication usage, Demonstrated understanding of instructions, follow-up care, medications, Prescriptions given X 4. 15:47 Patient left the ED. zb Signatures: Kathy Mata RN RN iw Page, Corey, PA PA cp Brown, Zipporah, RN RN zb Hinkle, Mansi wm Phil Brenda RN bp
--- NOTE | 2021-03-22 15:15 | EDPHYS ---
Physician Documentation [facility] Name: Adiel Jeff Age: 50 yrs Sex: Male : 1970 Arrival Date: 03/22/2021 Time: 10:53 Bed 13 Private MD: ED Physician Alex Gaming HPI: 03/22 13:10 This 50 yrs old Male presents to ER via Wheelchair with complaints of Abscess. cp 13:10 The patient presents with an abscess of the scalp. cp 13:10 Description: erythematous, swollen, tense, warm. Onset: The symptoms/episode cp began/occurred 3 day(s) ago. 13:10 Possible cause(s): unknown. Associated signs and symptoms: Pertinent positives: cp headache, Pertinent negatives: drainage, fever. Historical: - Allergies: 12:19 No Known Allergies; iw - PMHx: 12:19 Hypertension; Diabetes - NIDDM; iw - PSHx: 12:19 left toe amputation; iw - Immunization history:: Adult Immunizations Client reports receiving the 1st dose of the Covid vaccine, J\T\J. - Social history:: Smoking status: Patient denies any tobacco usage or history of. ROS: 13:15 Skin: Positive for abscess, of the scalp. cp 13:15 Constitutional: Negative for body aches, chills, fever, poor PO intake. cp 13:15 Eyes: Negative for injury, pain, redness, and discharge. cp 13:15 ENT: Negative for ear pain, sore throat, difficulty swallowing, difficulty handling secretions. 13:15 Cardiovascular: Negative for chest pain. 13:15 Respiratory: Negative for cough, shortness of breath, wheezing. 13:15 Abdomen/GI: Negative for abdominal pain, nausea, vomiting, and diarrhea. 13:15 Neuro: Positive for headache, Negative for altered mental status. 13:15 All other systems are negative. Exam: 13:20 Constitutional: The patient appears in no acute distress, alert, awake, non-toxic, well cp developed, well nourished, obese. 13:20 Head/face: Noted is swelling, that is moderate, of the left occipital area of scalp, cp tenderness, that is severe, of the left occipital area of scalp. 13:20 Eyes: Periorbital structures: appear normal, Pupils: equal, round, and reactive to light and accomodation, Extraocular movements: intact throughout, Conjunctiva: normal, no exudate, no injection, Sclera: no appreciated abnormality, Lids and lashes: appear normal, bilaterally. 13:20 ENT: External ear(s): are unremarkable, Nose: is normal, Mouth: Lips: moist, Oral mucosa: moist, Posterior pharynx: Airway: no evidence of obstruction, patent. 13:20 Neck: ROM/movement: is normal, is supple, no meningismus, no nuchal rigidity. 13:20 Chest/axilla: Inspection: normal, Palpation: is normal, no crepitus, no tenderness. 13:20 Cardiovascular: Rate: normal, Rhythm: regular. 13:20 Respiratory: the patient does not display signs of respiratory distress, Respirations: normal, no use of accessory muscles, no retractions, labored breathing, is not present, Breath sounds: are clear throughout, no decreased breath sounds. 13:20 Abdomen/GI: Exam negative for discomfort, distension, guarding, Inspection: abdomen appears normal. Vital Signs: 12:17 BP 146 / 94; Pulse 95; Resp 16; Temp 98.5; Pulse Ox 97% on R/A; Weight 120.2 kg; Height iw 5 ft. 11 in. (180.34 cm); 14:44 BP 138 / 83; Pulse 91; Resp 18; Pulse Ox 94% on R/A; zb 15:40 BP 122 / 87; Pulse 88; Resp 16; Pulse Ox 99% on R/A; zb 12:17 Body Mass Index 36.96 (120.20 kg, 180.34 cm) iw Procedures: 15:15 I \T\ D: Incision and drainage was performed for an abscess of the left occipital area of scalp Prepped with Betadine, Anesthetized with 6 ccs of 1% lidocaine with epi and 0.5% marcaine. Incised with #11 blade. Drained moderate amount purulent fluid. bloody fluid. Cultures obtained. Packed with iodoform gauze, Dressing: sterile 4x4 gauze, the patient tolerated the procedure well. MDM: 12:47 Patient medically screened. [facility] 13:30 Differential diagnosis: abscess, cellulitis, sepsis. 15:14 Data reviewed: vital signs, nurses notes, lab test result(s), and as a result, I will cp discharge patient. 15:14 Counseling: I had a detailed discussion with the patient and/or guardian regarding: the cp historical points, exam findings, and any diagnostic results supporting the discharge/admit diagnosis, lab results, the need for outpatient follow up, a family practitioner, to return to the emergency department if symptoms worsen or persist or if there are any questions or concerns that arise at home. 15:14 Response to treatment: the patient's symptoms have markedly improved after treatment, and as a result, I will discharge patient. 03/22 13:04 Order name: Lactate 03/22 13:04 Order name: Procalcitonin; Complete Time: 15:00 03/22 15:00 Interpretation: Abnormal: Procalcitonin 0.11. 03/22 13:04 Order name: Blood Culture Adult (2) 03/22 13:04 Order name: CBC with Diff; Complete Time: 14:10 03/22 14:10 Interpretation: Normal except: WBC 14.60; HGB 13.1; HCT 38.7; DESMOND% 75.2; NEUT A 11.0. 03/22 13:04 Order name: BMP; Complete Time: 14:10 03/22 14:10 Interpretation: Normal except: NA 133; GLUC 335. 03/22 13:04 Order name: PT-INR; Complete Time: 14:10 03/22 13:04 Order name: Ptt, Activated; Complete Time: 14:10 03/22 13:04 Order name: Lactate; Complete Time: 14:10 EDTX 03/22 13:16 Order name: Wound Culture 03/22 15:28 Order name: Glucose, Ancillary Testing [facility] 03/22 13:04 Order name: IV; Complete Time: 23:39 03/22 13:14 Order name: I\T\D Setup; Complete Time: 15:32 03/22 15:00 Order name: Wound dressing; Complete Time: 15:31 03/22 15:02 Order name: Accucheck Blood Glucose; Complete Time: 15:18 cp Administered Medications: 14:08 Drug: morphine 4 mg {Note: RASS +1.} Route: IVP; Site: left forearm; zb 14:30 Follow up: Response: No adverse reaction; Marked relief of symptoms; Pain is decreased; zb RASS: Alert and Calm (0) 14:08 Drug: Zofran (Ondansetron) 4 mg Route: IVP; Site: left forearm; zb 14:30 Follow up: Response: No adverse reaction zb 14:12 Drug: Lidocaine-Epinephrine -1%: (1:100,000) 10 ml {Note: at bedside for ecp .} Volume: zb 20 ml; Route: Infiltration; 14:13 Drug: Marcaine (bupivacaine) (0.5 %) 10 ml {Note: at bedside for ecp .} Volume: 10 ml; zb Route: Infiltration; 14:25 Drug: Insulin Regular Human 10 units {Co-Signature: bp (Phil Gutierrez RN).} Route: IVP; zb Site: left forearm; 15:40 Follow up: Response: No adverse reaction; Marked relief of symptoms; Blood sugar is zb lowered 14:28 Drug: Clindamycin 900 mg Route: IVPB; Infused Over: 30 mins; Site: left forearm; zb 15:31 Drug: Bactrim (trimethoprim-sulfamethoxazole) (160 mg-800 mg (DS) 2 tabs Route: PO; zb 15:40 Follow up: Response: Medication administered at discharge. zb Disposition: 16:00 Chart complete. Disposition: 03/22/21 15:14 Discharged to Home. Impression: Cutaneous abscess of head [any part, except face] - left occipital scalp. - Condition is Stable. - Discharge Instructions: Skin Abscess, Incision and Drainage. - Prescriptions for Clindamycin HCl 300 mg Oral Capsule - take 1 capsule by ORAL route every 6 hours for 10 days; 40 capsule. Ibuprofen 800 mg Oral Tablet - take 1 tablet by ORAL route every 8 hours As needed take with food; 30 tablet. Tylenol- Codeine #3 300-30 mg Oral Tablet - take 2 tablets by ORAL route every 6-8 hours As needed; 15 tablet. Bactrim DS 800- 160 mg Oral Tablet - take 1 tablet by ORAL route every 12 hours for 10 days; 20 tablet. - Medication Reconciliation Form, Thank You Letter, Antibiotic Education, Prescription Opioid Use form. - Follow up: Private Physician; When: 48 Hours; Reason: Wound Recheck. - Problem is new. - Symptoms have improved. Addendum: 03/23/2021 21:08 Co-signature as Attending Physician, Alex Gaming MD I agree with the assessment and c rosa plan of care. Signatures: Dispatcher [employer] Alex Currie MD MD cha Williams, Irene, RN RN Alex Mederos PA PA cp Brown, Zipporah, RN RN zb Brian Peltier RN bp Corrections: (The following items were deleted from the chart) 03/22 15:47 15:14 03/22/2021 15:14 Discharged to Home. Impression: Cutaneous abscess of head [any zb part, except face] - left occipital scalp. Condition is Stable. Forms are Medication Reconciliation Form, Thank You Letter, Antibiotic Education, Prescription Opioid Use. Follow up: Private Physician; When: 48 Hours; Reason: Wound Recheck. Problem is new. Symptoms have improved. cp
[2021-03-22] MEDS ORDERED: SMZ./TMP. 800/160 MG TABLET ONE (15:43)
[2021-03-22] MEDS ORDERED: MEPERIDINE HCL 25 MG/ML SYR ONE (15:44)
[2021-03-22 15:51] VITALS: TEMP 98.5
[2021-03-22 15:53] VITALS: BP 138/83; O2SAT 94
== END 2021-03-22 15:47 | disposition home or self-care (01) ==
LOC: ER 10:47
PROC: 0J900ZZ Drainage of Scalp Subcutaneous Tissue and Fascia, Open Approach (ICD-10-PCS; principal; 2021-03-22)
DX: L02.811 Cutaneous abscess of head [any part, except face] (principal); I10 Essential (primary) hypertension
CPT/HCPCS: 87040; 87070; 85025; 80048; 36415; 87205; 85610; 82947; 83605; 85730; 87077 ×2; 87186 ×2; 84145; 10060; J2175; J2405; 96374; 96375; 99284

== ENCOUNTER 2021-04-27 13:30 | Emergency (ER) | payer OTHER ==
--- OUTSIDE RECORDS SUMMARY | 2021-04-27 13:32 | XMS REPORT | Continuity of Care Document ---
:1970 Author Organization [facility] t Address [address] [place] [address] Care Team Providers Name Role Phone Trinidad Masterson Attending Clinician Doctor Unassigned, Name Attending Clinician Unavailable Denisse SIEGEL, E Attending Clinician Adolfo PUNCHBOARD ASSEMBLER, G Attending Clinician Problems This patient has no known problems. Allergies, Adverse Reactions, Alerts This patient has no known allergies or adverse reactions. Medications This patient has no known medications. Procedures This patient has no known procedures. Encounters Start End Encounter Admission Attending Care Care Encounter Source Date/Time Date/Time Type Type Clinicians Facility Department ID 2020-12-17 2020-12-[address] [facility] [id number] [facility] 2020-11-17 2020-11-[address] [facility] [id number] [facility] 2020-11-07 2020-11-[address] [facility] [id number] [facility] 2020-10-25 2020-10-[address] [facility] [id number] [facility] 2020-07-25 2020-07-25 Emergency [facility] [id number] 12:29:00 16:08:00 Greysonaruna Bubba Tommy [id number] [place] [id number] [place] [id number] 2020-07-25 2020-07-25 Orders Doctor YAYA [id number] 00:00:00 00:00:00 Only Unassigned, DISHA [id number] [place] [facility] [id number] 2020-05-20 2020-05-21 Emergency Denisse, TRAUMA [id number] 22:28:00 03:34:00 [facility] [id number] 2020-04-15 2020-04-16 Emergency [facility] [id number] 19:43:26 00:05:00 Sorayadevon Sanders [id number] [place] [id number] [place] [id number] 2020-04-15 2020-04-15 Orders Doctor YAYA [id number] 00:00:00 00:00:00 Only Unassigned, DISHA [id number] [facility] [id number] Results This patient has no known results.
--- NOTE | 2021-04-27 16:01 | RAD REPORT ---
EXAM DESCRIPTION: RAD - Chest Single View - 04/27/2021 3:39 pm CLINICAL HISTORY: SOB;Cough COMPARISON: Abdomen Pelvis W Contrast dated 07/04/2018; Abdomen Pelvis W Contrast dated 11/04/2016C hest Single View dated 09/06/2016 FINDINGS: No evidence of edema or pneumonia. The heart size is within normal limits.No acute osseous abnormality. No significant pleural effusions or pneumothorax. IMPRESSION: No acute cardiopulmonary disease.
[2021-04-27 16:49] LABS: Absolute Lymphocytes (CBC) 2.6 K/uL (0.7-4.9); Hematocrit 42.7 % (39.6-49.0); Lymphocytes % 24.6 % (15.3-44.8); MPV 7.8 fL (7.6-11.3); RBC Red Blood Cell Count 4.75 M/uL (4.33-5.43)
[2021-04-27] MEDS ORDERED: KETOROLAC 30 MG/ML INJ ONE (16:51)
[2021-04-27] MEDS ORDERED: ONDANSETRON 4 MG/2 ML VIAL ONE (16:51)
[2021-04-27 16:52] LABS: Protime INR 0.91
[2021-04-27 17:03] LABS: ALT/SGPT 32 U/L (12-78); AST/SGOT 18 U/L (15-37); Albumin 3.7 g/dL (3.4-5.0); Alkaline Phosphatase 123 U/L (45-117); BUN Blood Urea Nitrogen 16 mg/dL (7-18); Bicarbonate 22 mmol/L (21-32); Bilirubin Direct < 0.1 mg/dL (0-0.2); Bilirubin Total 0.4 mg/dL (0.2-1.0); Glucose Level 373 mg/dL (74-106); NT PRO-BNP 15 pg/mL (<125); Potassium 4.2 mmol/L (3.5-5.1); Protein, Total 8.4 g/dL (6.4-8.2); Sodium Level 136 mmol/L (136-145); Troponin (Emerg Dept Use Only) < 0.02 ng/mL (0.0-0.045)
--- NOTE | 2021-04-27 17:40 | ER ---
Nurse's Notes [facility] Name: Adiel Jeff Age: 50 yrs Sex: Male : 1970 Arrival Date: 04/27/2021 Time: 13:32 Bed 23 Private MD: Diagnosis: Persistent Cough Presentation: 04/27 14:53 Chief complaint: Patient states: I'm disabled, my right leg always gives me trouble, iw tripped over his dog the other day and hurt right knee, also has been on abx for a cough but it's getting worse, that was last week, and now has a migraine from the cough , pt states when he lays down he has diff breathing. Coronavirus screen: Ebola Screen: Patient negative for fever greater than or equal to 101.5 degrees Fahrenheit, and additional compatible Ebola Virus Disease symptoms Patient denies exposure to infectious person. Patient denies travel to an Ebola-affected area in the 21 days before illness onset. No symptoms or risks identified at this time. Initial Sepsis Screen: Does the patient meet any 2 criteria? No. Patient's initial sepsis screen is negative. Does the patient have a suspected source of infection? No. Patient's initial sepsis screen is negative. Risk Assessment: Do you want to hurt yourself or someone else? Patient reports no desire to harm self or others. Onset of symptoms was April 11, 2021. 14:53 Method Of Arrival: Ambulatory 14:53 Acuity: DURAN 3 iw Historical: - Allergies: 14:55 No Known Allergies; iw - Home Meds: 14:55 Glipizide Oral [Active]; lisinopril Oral [Active]; Metformin Oral [Active]; iw - PMHx: 14:55 Diabetes - NIDDM; Hypertension; iw - Immunization history:: Client reports receiving the 1st dose of the Covid vaccine, J\T\J. - Social history:: Smoking status: Patient denies any tobacco usage or history of. Screenin:37 Abuse screen: Denies threats or abuse. Denies injuries from another. Nutritional zb screening: No deficits noted. Tuberculosis screening: No symptoms or risk factors identified. Fall Risk None identified. Assessment: 16:35 General: Appears in no apparent distress. Behavior is cooperative, anxious. Pain: zb Complains of pain in forehead and chest Pain currently is 6 out of 10 on a pain scale. Quality of pain is described as aching, sharp. Neuro: Level of Consciousness is awake, alert, obeys commands, Oriented to person, place, time. Cardiovascular: Heart tones S1 S2 present Patient's skin is warm and dry. Respiratory: Reports shortness of breath on exertion cough that is dry, hacking, persistent Airway is patent Breath sounds are clear the patient has mild shortness of breath. GI: Reports intolerance of fluids, intolerance of food, nausea, vomiting. Derm: Skin is intact, is healthy with good turgor, Skin is dry. Musculoskeletal: Range of motion: intact in all extremities. 17:28 Reassessment: Patient appears in no apparent distress at this time. Patient and/or zb family updated on plan of care and expected duration. Pain level reassessed. Patient is alert, oriented x 3, equal unlabored respirations, skin warm/dry/pink. ECP currently in room discussing care. 17:50 Reassessment: Patient appears in no apparent distress at this time. Patient and/or zb family updated on plan of care and expected duration. Pain level reassessed. Patient is alert, oriented x 3, equal unlabored respirations, skin warm/dry/pink. Vital Signs: 14:53 BP 155 / 93; Pulse 98; Resp 18 S; Temp 98.9; Pulse Ox 98% on R/A; Weight 120.2 kg; iw Height 5 ft. 11 in. (180.34 cm); 16:45 BP 141 / 77; Pulse 90; Resp 16; Pulse Ox 97% on R/A; zb 17:29 BP 122 / 98; Pulse 94; Resp 16; Pulse Ox 98% on R/A; zb 14:53 Body Mass Index 36.96 (120.20 kg, 180.34 cm) iw ED Course: 13:32 Patient arrived in ED. rg4 14:55 Triage completed. iw 14:55 Arm band placed on. iw 15:32 Enrique Morris PA is PHCP. jr8 15:32 Silvestre Akbar MD is Attending Physician. jr8 15:38 Enrique Morris PA is PHCP. jr8 15:38 Silvestre Akbar MD is Attending Physician. jr8 15:39 CXR XRAY In Process Unspecified. EDMS 16:16 Carissa Bryant RN is Primary Nurse. zb 16:37 Patient has correct armband on for positive identification. 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 Pulse zb ox on. NIBP on. Door closed. Noise minimized. 16:37 Inserted saline lock: 18 gauge in left hand, using aseptic technique. Blood collected. zb 17:40 Beny Kathleen MD is Referral Physician. jr8 17:51 No provider procedures requiring assistance completed. IV discontinued, intact, zb bleeding controlled, No redness/swelling at site. Pressure dressing applied. Administered Medications: 16:34 Drug: Ketorolac 15 mg Route: IVP; Site: left hand; zb 17:28 Follow up: Response: No adverse reaction; Marked relief of symptoms; Pain is decreased zb 16:35 Drug: Zofran (Ondansetron) 4 mg Route: IVP; Site: left hand; zb 16:46 Follow up: Response: No adverse reaction; Marked relief of symptoms; Nausea is decreasedzb 17:42 Drug: Tussionex Pennkinetic ER (chlorpheniramine-hydrocodone) Suspension 5 ml Route: PO;zb 17:49 Follow up: Response: No adverse reaction; Pain is decreased zb Outcome: 17:40 Discharge ordered by MD. jr8 17:51 Discharged to home ambulatory. zb 17:51 Condition: stable 17:51 Discharge instructions given to patient, Instructed on discharge instructions, follow up and referral plans. medication usage, Demonstrated understanding of instructions, follow-up care, medications, Prescriptions given X 1. 17:51 Patient left the ED. zb Signatures: Dispatcher [employer] Kathy Morillo RN RN iw Roszak, Josh, PA PA jr8 Hilaria Asif rg4 Carissa Bryant RN RN zb Corrections: (The following items were deleted from the chart) 16:45 16:35 Respiratory: Airway is patent Breath sounds are clear zb zb
--- NOTE | 2021-04-27 17:40 | EDPHYS ---
Physician Documentation [facility] Name: Adiel Jeff Age: 50 yrs Sex: Male : 1970 Arrival Date: 04/27/2021 Time: 13:32 Bed 23 Private MD: ED Physician Silvestre Akbar HPI: 04/27 17:16 This 50 yrs old Male presents to ER via Ambulatory with complaints of Cough, jr8 Chest Pain. 17:17 The patient or guardian reports cough, that is intermittent, described as moderate, jr8 with no sputum. Onset: The symptoms/episode began/occurred gradually. Severity of symptoms: At their worst the symptoms were moderate, in the emergency department the symptoms are unchanged. Modifying factors: The symptoms are alleviated by nothing, the symptoms are aggravated by exertion, talking. Associated signs and symptoms: Pertinent positives: chest pain, with cough, with breathing. The patient has experienced similar episodes in the past, a few times. The patient has not recently seen a physician. Patient stated that he has had this similar condition several times in the past. Has never been able to figure out what was wrong. Stated that he will get a nonproductive dry cough with chest pain on the sides of his ribs and back. 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 Currently denies fever or any other symptoms.. Historical: - Allergies: 14:55 No Known Allergies; iw - Home Meds: 14:55 Glipizide Oral [Active]; lisinopril Oral [Active]; Metformin Oral [Active]; iw - PMHx: 14:55 Diabetes - NIDDM; Hypertension; iw - Immunization history:: Client reports receiving the 1st dose of the Covid vaccine, J\\T\\J. - Social history:: Smoking status: Patient denies any tobacco usage or history of. ROS: 17:17 Eyes: Negative for injury, pain, redness, and discharge, ENT: Negative for injury, jr8 pain, and discharge, Neck: Negative for injury, pain, and swelling, Abdomen/GI: Negative for abdominal pain, nausea, vomiting, diarrhea, and constipation, Back: Negative for injury and pain, MS/Extremity: Negative for injury and deformity, Skin: Negative for injury, rash, and discoloration, Neuro: Negative for headache, weakness, numbness, tingling, and seizure. 17:17 Cardiovascular: Positive for chest pain, with cough, Negative for edema, orthopnea, palpitations, paroxysmal nocturnal dyspnea. 17:17 Respiratory: Positive for cough, dyspnea on exertion, shortness of breath, Negative for Exam: 17:17 Constitutional: This is a well developed, well nourished patient who is awake, alert, jr8 and in no acute distress. ENT: Nares patent. No nasal discharge, no septal abnormalities noted. Tympanic membranes are normal and external auditory canals are clear. Oropharynx with no redness, swelling, or masses, exudates, or evidence of obstruction, uvula midline. Mucous membranes moist. Neck: Trachea midline, no thyromegaly or masses palpated, and no cervical lymphadenopathy. Supple, full range of motion without nuchal rigidity, or vertebral point tenderness. No Meningismus. Cardiovascular: Regular rate and rhythm with a normal S1 and S2. No gallops, murmurs, or rubs. Normal PMI, no JVD. No pulse deficits. Respiratory: Lungs have equal breath sounds bilaterally, clear to auscultation and percussion. No rales, rhonchi or wheezes noted. No increased work of breathing, no retractions or nasal flaring. Abdomen/GI: Soft, non-tender, with normal bowel sounds. No distension or tympany. No guarding or rebound. No evidence of tenderness throughout. Back: No spinal tenderness. No costovertebral tenderness. Full range of motion. Skin: Warm, dry with normal turgor. Normal color with no rashes, no lesions, and no evidence of cellulitis. MS/ Extremity: Pulses equal, no cyanosis. Neurovascular intact. Full, normal range of motion. Neuro: Awake and alert, GCS 15, oriented to person, place, time, and situation. Cranial nerves II-XII grossly intact. Motor strength 5/5 in all extremities. Sensory grossly intact. Cerebellar exam normal. Normal gait. Vital Signs: 14:53 BP 155 / 93; Pulse 98; Resp 18 S; Temp 98.9; Pulse Ox 98% on R/A; Weight 120.2 kg; iw Height 5 ft. 11 in. (180.34 cm); 16:45 BP 141 / 77; Pulse 90; Resp 16; Pulse Ox 97% on R/A; zb 17:29 BP 122 / 98; Pulse 94; Resp 16; Pulse Ox 98% on R/A; zb 14:53 Body Mass Index 36.96 (120.20 kg, 180.34 cm) iw MDM: 15:32 Patient medically screened. jr8 17:19 Differential Diagnosis: Bronchitis Upper Respiratory Infection Viral Syndrome Pneumonia jr8 Other GERD, obstructive sleep apnea, congestive heart failure, COPD, diffuse parenchymal lung disease, hypersensitivity pneumonitis, occupational lung disease. Data reviewed: vital signs, nurses notes, lab test result(s), EKG, radiologic studies, plain films. Data interpreted: Pulse oximetry: on room air is 97 %. Interpretation: normal. 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 17:31 ED course: Deshaun with patient at this time I would recommend trial of antihistamine for jr8 2 weeks to see if his allergen in origin. If that does not work or does not significantly improve could also try a trial of an H2 elizabet to see if it is reflux related. In between then recommended following up with pulmonology for further evaluation for his persistent cough. If he were to get worse or to start running fever he knows to come back. We will also give him cough medicine. Do not recommend steroids at this time as his sugars are uncontrolled. 04/27 16:12 Order name: Basic Metabolic Panel; Complete Time: 17:16 04/27 16:12 Order name: CBC with Diff; Complete Time: 16:55 04/27 16:12 Order name: LFT's; Complete Time: 17:16 04/27 16:12 Order name: Magnesium; Complete Time: 17:16 04/27 16:12 Order name: NT PRO-BNP; Complete Time: 17:16 04/27 16:12 Order name: PT-INR; Complete Time: 16:55 04/27 14:56 Order name: CXR XRAY; Complete Time: 16:04 04/27 16:12 Order name: Troponin (emerg Dept Use Only); Complete Time: 17:16 04/27 16:16 Order name: COVID-19 : Document "Date of Symptom Onset" if Symptomatic. 04/27 16:37 Order name: D-Dimer; Complete Time: 16:55 EDMS 04/27 16:12 Order name: EKG; Complete Time: 16:13 04/27 16:12 Order name: Cardiac monitoring; Complete Time: 16:46 04/27 16:12 Order name: EKG - Nurse/Tech; Complete Time: 16:46 04/27 16:12 Order name: IV Saline Lock; Complete Time: 16:35 04/27 16:12 Order name: Labs collected and sent; Complete Time: 16:35 04/27 16:12 Order name: O2 Per Protocol; Complete Time: 16:35 04/27 16:12 Order name: O2 Sat Monitoring; Complete Time: 16:35 Administered Medications: 16:34 Drug: Ketorolac 15 mg Route: IVP; Site: left hand; zb 17:28 Follow up: Response: No adverse reaction; Marked relief of symptoms; Pain is decreased zb 16:35 Drug: Zofran (Ondansetron) 4 mg Route: IVP; Site: left hand; zb 16:46 Follow up: Response: No adverse reaction; Marked relief of symptoms; Nausea is decreasedzb 17:42 Drug: Tussionex Pennkinetic ER (chlorpheniramine-hydrocodone) Suspension 5 ml Route: PO;zb 17:49 Follow up: Response: No adverse reaction; Pain is decreased zb Disposition: 17:59 Co-signature as Attending Physician, Silvestre Akbar MD. rn Disposition Summary: 04/27/21 17:40 Discharge Ordered Location: Home jr8 Problem: new jr8 Symptoms: have improved jr8 Condition: Stable jr8 Diagnosis - Persistent Cough jr8 Followup: jr8 - With: Beny Kathleen MD - When: 5 - 6 days - Reason: Recheck today's complaints, Continuance of care, Re-evaluation by your physician Discharge Instructions: - Discharge Summary Sheet jr8 - Cough, Adult jr8 Forms: - Medication Reconciliation Form jr8 - Thank You Letter jr8 - Antibiotic Education jr8 - Prescription Opioid Use jr8 Prescriptions: - promethazine-DM 6.25-15 mg/5 mL Oral syrup - take 5 milliliter by ORAL route every 4-6 hours As needed as needed, not to jr8 exceed 30 mL in 24 hours; 100 milliliter; Refills: 0, Product Selection Permitted Signatures: Dispatcher [employer] Kathy Morillo, Silvestre Loera RN, MD MD rn Roszak, Josh, PA PA jr8 Carissa Bryant RN RN zb Corrections: (The following items were deleted from the chart) 16:36 16:13 D-DIMER+COAG.LAB.BRZ ordered. EDMS EDMS
[2021-04-27 17:59] VITALS: TEMP 98.9
[2021-04-27] MEDS ORDERED: HYDROCODONE/CHLORPHEN 5 ML/OSYR ONE (18:01)
[2021-04-27 18:02] VITALS: BP 122/98; O2SAT 98
--- NOTE | 2021-04-29 09:07 | EKG ---
Test Date: 2021-04-27 Test Time: 16:41:11 [employer]on Customer Experience Specialist: ROSA M MEASUREMENT RESULTS: Intervals: Rate: 93 OK: 166 QRSD: 90 QT: 370 QTc: 460 [place]: P: 58 OK: 166 QRS: 101 T: 60 INTERPRETIVE STATEMENTS: Normal sinus rhythm Rightward axis Low voltage QRS Cannot rule out Inferior infarct, age undetermined Cannot rule out Anterior infarct, age undetermined Abnormal ECG No previous ECG available for comparison Electronically Signed On 04-29-21 09:04:10 CDT by Alfonso Kam
== END 2021-04-27 17:51 | disposition home or self-care (01) ==
LOC: ER 13:30
DX: R05 Cough (principal); I10 Essential (primary) hypertension; E11.9 Type 2 diabetes mellitus without complications; Z20.822 Contact with and (suspected) exposure to COVID-19
CPT/HCPCS: 93005; 85025; 80048; 36415; 83735; 85610; 85379; 80076; 84484; 83880; 71045; 96375; 96374; 99284; U0003; J2405

== ENCOUNTER 2021-07-13 09:41 | Emergency (ER) | payer OTHER ==
[2021-07-13 10:09] LABS: Absolute Lymphocytes (CBC) 2.4 K/uL (0.7-4.9); Basophils % 0.7 % (0-1.3); Hematocrit 40.7 % (39.6-49.0); MPV 7.9 fL (7.6-11.3); RBC Red Blood Cell Count 4.54 M/uL (4.33-5.43)
[2021-07-13] MEDS ORDERED: CEFAZOLIN SODIUM 1 GM/VIAL ONE (10:14)
[2021-07-13] MEDS ORDERED: NA CHLORIDE 0.9% 1,000 ML ONE (10:14)
[2021-07-13] MEDS ORDERED: TETANUS & DIPHTHERIA TOX,ADULT 0.5 ML VIAL ONE (10:14)
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
[2021-07-13 10:45] LABS: Potassium 3.8 mmol/L (3.5-5.1)
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
[2021-07-13] MEDS ORDERED: LIDOCAINE 1% W/EPI 1:100,000 MDV 20 ML VIAL ONE (11:00)
[2021-07-13] MEDS ORDERED: HYDROCODONE/APAP 10/325 TAB ONE (11:12)
[2021-07-13 11:57] VITALS: TEMP 98.6
[2021-07-13 12:02] VITALS: BP 172/89; O2SAT 99
== END 2021-07-13 11:53 | disposition home or self-care (01) ==
LOC: ER 09:41
DX: S21.132A Puncture wound without foreign body of left front wall of thorax without penetration into thoracic cavity, initial encounter (principal); E11.65 Type 2 diabetes mellitus with hyperglycemia; X99.1XXA Assault by knife, initial encounter; I10 Essential (primary) hypertension; Z23 Encounter for immunization
CPT/HCPCS: 96365; 85025; 80048; 36415; 86900; 86850; 82565; 86901; 71260; 74177; 71045; 90714; 99285; 96366; Q9967; J7030; J0690; G0390

== ENCOUNTER 2021-08-13 18:14 | Emergency (ER) | payer OTHER ==
--- OUTSIDE RECORDS SUMMARY | 2021-08-13 18:18 | XMS REPORT | Continuity of Care Document ---
:1970 Author Organization [facility] t Address [address] [place] [address] Care Team Providers Name Role Phone Trinidad Masterson Attending Clinician Bubba WU Attending Clinician Unavailable Doctor Unassigned, Name Attending Clinician Unavailable Denisse SIEGEL, E Attending Clinician Kiara SALCEDO Attending Clinician Unavailable Adolfo GUSMAN, G Attending Clinician Christin RODRIGUES Attending Clinician Unavailable Payers Payer Name Policy Type Policy Number Effective Date Expiration Date S ource Advance Directives Directive Decision Effective Termination Comments Source Date Date Healthcare Agents on N/[facility] FileNameRelationMercy Health [facility] Hospitalealthcare [facility] Agent Medical RelationshipCommunicationWakeMed [facility] Care [phone] (Mobile) Problems Condition Condition Condition Status Onset Resolution Last Treating Co mments Source Name Details Category Date Date Treatment Clinician Date Diabetic Diabetic Disease Active 2019-0 Unive rs foot foot 5-22 ity of infection infection 00:00: [address] Osteomyeli Osteomyeli Disease Active 2019-0 U nivers tis of tis of 5-21 ity of foot foot 00:00: [address] Osteomyeli Osteomyeli Disease Active 2019-0 U nivers tis tis 3-09 ity of 00:00: [address] Obesity Obesity Disease Active 2019-0 Univers (BMI (BMI 3-09 ity of 30-39.9) 30-39.9) 00:00: [address] Allergies, Adverse Reactions, Alerts Allergy Allergy Status Severity Reaction(s) Onset Inactive Treating Comm ents Source Name Type Date Date Clinician NO KNOWN Drug Active Univers ALLERGIE Class ity of S [facility] Social History Social Habit Start Date Stop Date Quantity Comments Source Exposure to Not sure [facility] SARS-CoV-2 [facility] (event) Branch Sex Assigned At [facility] y of [facility] Tobacco use and 2020-07-25 2020-07-25 Never used Universit y of exposure 00:00:00 00:00:00 [facility] Alcohol intake 2020-07-25 2020-07-25 Current [facility] 00:00:00 00:00:00 non-drinker of [facility] alcohol [place] (finding) Smoking Status Start Date Stop Date Source Never smoker [facility] Medications Ordered Filled Start Stop Current Ordering Indication Dosage Frequency Signature Comments Components Source Medication Medication Date Date Medication? Clinician (SIG) Name Name clindamycin 2019-09 No 600mg 600 mg, U nivers (CLEOCIN) 07-25 Intramuscu ity of injection 21:30: 20:51 lar, ONCE, [place] 600 mg 00 :00 1 dose, [facility] Branch 07/25/20 at 1630, JIMENA
Re ason for Anti-Infec tive: Documented Infection< br>Documen nanci Infection Site: Skin / Soft Tissue
Duration of Therapy: 7 days
Re stricted use approved by: ED PROVIDER<b r>Indicati on for Clindamyci n use: abscess ibuprofen 2019-09 No 800mg 800 mg, Uni vers (IBU) 07-25 Oral, ity of tablet 800 21:30: 20:51 ONCE, 1 [place] as mg 00 :00 dose, [facility] Medical 07/25/20 Branch at 1630, JIMENA HYDROcodone 2019-09 No 1{tbl} 1 tablet, Univers -acetaminop 07-25 Oral, ity of hen (NORCO) 19:45: 19:14 [place]CE[place] 10-325 mg 00 :00 dose, [facility] Medic al tablet 1 07/25/20 Branch tablet at 1445, Routine traMADoL 50 2019-09 Yes [id number] 50mg Take 1 Univ ers mg tablet 0-28 tablet by ity o f 00:00: mouth [place] 00 every 6 Medical (six) Branch hours as needed for Pain (scale 7-10). Indication s: acute pain clindamycin 2019- 2020- No [id number] 300mg Take 1 Univers 300 mg 0-28 11-05 capsule by ity of capsule 00:00: 05:59 mouth 3 [place] 00 :00 (three) Medical times Branch daily for 7 days. clindamycin 2019-09- No [id number] 150mg Take 1 Univers 150 mg 0-28 11-05 capsule by ity of capsule 00:00: 05:59 mouth 3 [place] 00 :00 (three) Medical times Branch daily for 7 days. morpHINE 2019-0 2020- No 4mg 4 mg, Slow Un osvaldo injection 4 05-21 08-24 IV Push, ity of mg 08:30: 07:32 ONCE, 1 [place] 00 :00 dose, [facility] Medical 05/21/20 at Branch 0330, STAT doxycycline 2019-0 2020- No 100mg 100 mg, U nivers hyclate 05-21 08-24 Oral, ity of (Vibramycin 06:15: 05:36 ONCE, 1 [place] capsule 00 :00 dose, [facility] Medic al 100 mg 05/21/20 at Branch 0115, JIMENA
Re ason for Anti-Infec tive: Documented Infection< br>Documen nanci Infection Site: Skin / Soft Tissue
Duration of Therapy: 10 days morpHINE 2019-0 2020- No 4mg 4 mg, Slow Un osvaldo injection 4 05-21 08-24 IV Push, ity of mg 05:45: 04:50 ONCE, 1 [place] 00 :00 dose, [facility] Medical 05/21/20 at Branch 0045, STAT sodium 2020-0 Yes Topical, Univers hypochlorit 8-24 BID, First it y of e 0.125 % 04:45: dose on (DAKIN'[facility] 00 [facility] SOLUTION) 05/20/20 at [facility] solution 2345, Until Discontinu ed, JIMENA doxycycline 2020-0 Yes [id number] 100mg Take 1 Univers hyclate 100 8-24 capsule by it y of mg capsule 00:00: [place] (two) Medical times Branch daily. doxycycline 2020-0 Yes [id number] 100mg Take 1 Univers hyclate 100 8-24 capsule by it y of mg capsule 00:00: mouth [place] (two) Medical times Branch daily. doxycycline 2020-0 Yes [id number] 100mg Take 1 Univers hyclate 100 8-24 capsule by it y of mg capsule 00:00: mouth [place] 00 (two) Medical times Branch daily. acetaminoph 2019- 2020- No [id number] 1{tbl} Take 1 U nivers en-codeine -21 06- tablet by ity of (TYLENOL-CO 00:00: 04:59 [place] DEINE #3) 00 :00 every 4 Medical 300-30 mg (four) Branch tablet hours as needed for Pain (scale 7-10) for up to 7 days. Indication s: acute pain insulin 2019-2019- No 10U 10 Units, Univ ers regular 04-16 Subcutaneo ity o f human 05:15: 04:26 , ONCE, [place] (HUMULIN R) 00 :00 1 dose, Medic al injection [facility] Branch 10 Units 04/16/20 at 0015, Routine FENTanyl PF 2019- No 50ug 50 mcg, Un osvaldo (SUBLIMAZE 04-16 Slow IV ity o f (PF)) 05:15: 04:23 Push, [place] injection 00 :00 ONCE, 1 Medical 50 mcg dose, Mon Branch 04/16/20 at 0015, STAT HYDROcodone 2019- No 2{tbl} 2 tablet, Univers -acetaminop 04-16 Oral, ity of hen (NORCO 03:00: 02:04 ONCE, 1 [place] 5) 5-325 mg 00 :00 dose, Sun Med ical tablet 2 04/15/20 at Bran h tablet 2200, JIMENA ketorolac 2019-2019- No 30mg 30 mg, Unive rs (TORADOL) 04-16 Slow IV ity of injection 03:00: 02:04 Push, [place] 30 mg 00 :00 ONCE, 1 Medical dose, [place] Branch 04/15/20 at 2200, Routine
membership correspondent approving Restricted medication : MARIA FERNANDA RODRIGUES glipiZIDE 2020- No [id number] 10mg Take 1 U nivers 10 mg 04-15 tablet by ity of tablet 00:00: 04:59 mouth 2 [place] 00 :00 (two) Medical times Branch daily before breakfast and dinner for 30 days. lisinopril 2020- No [id number] 5mg Take 1 Univers 5 mg tablet 04-15 tablet by it y of 00:00: 04:59 mouth 2 [place] 00 :00 (two) Medical times Branch daily for 30 days. atorvastati 2020- No [id number] 40mg Take 1 Univers n 40 mg 04-15 tablet by ity of tablet 00:00: 04:59 mouth at [place] 00 :00 bedtime Medical for 30 Branch days. metFORMIN 2020- No [id number] 1000mg Take 1 Univers 1,000 mg 04-15 tablet by ity o f tablet 00:00: 04:59 mouth 2 [place] 00 :00 (two) Medical times Branch daily with meals for 30 days. gabapentin 2020- No [id number] 200mg Take 2 Univers 100 mg 04-15 capsules ity of capsule 00:00: 04:59 by mouth 3 [place] 00 :00 (three) Medical times Branch daily for 30 days. traMADol 50 2020- No [id number] 50mg Take 1 Uni vers mg tablet 04-15 tablet by ity of 00:00: 04:59 mouth [place] 00 :00 every 6 Medical (six) Branch hours as needed for Pain (scale 4-6) for up to 7 days. Indication s: acute pain escitalopra Yes [id number] 10mg Take 1 Univers m oxalate 5-30 tablet by ity o f 10 mg 00:00: mouth [place] tablet 00 daily. Medical Branch escitalopra Yes [id number] 10mg Take 1 Univers m oxalate 5-30 tablet by ity o f 10 mg 00:00: mouth [place] tablet 00 daily. Medical Branch escitalopra Yes [id number] 10mg Take 1 Univers m oxalate 5-30 tablet by ity o f 10 mg 00:00: mouth [place] tablet 00 daily. Medical Branch escitalopra Yes [id number] 10mg Take 1 Univers m oxalate 5-30 tablet by ity o f 10 mg 00:00: mouth [place] tablet 00 daily. Medical Branch escitalopra 2019-0 Yes [id number] 10mg Take 1 Univers m oxalate 5-30 tablet by ity o f 10 mg 00:00: mouth [place] tablet 00 daily. Medical Branch gabapentin 2019-0 Yes [id number] 200mg Take 2 Univers 100 mg 5-29 capsules ity of capsule 00:00: by mouth 3 [place] 00 (three) Medical times Branch daily. metFORMIN 2019-0 Yes [id number] 1000mg Take 1 Univers 1,000 mg 5-29 tablet by ity of tablet 00:00: mouth 2 (two) Medical times Branch daily with meals. glipiZIDE 2019- Yes [id number] 10mg Take 1 U nivers 10 mg 5-29 tablet by ity of tablet 00:00: mouth 3 (three) Medical times Branch daily before meals. atorvastati Yes [id number] 40mg Take 1 Univers n 40 mg 5-29 tablet by ity of tablet 00:00: mouth at 00 bedtime. Medical Branch lisinopril 2018- Yes [id number] 5mg Take 0.5 Univers 10 mg 5-29 tablets by ity of tablet 00:00: mouth 2 (two) Medical times Branch daily. cephALEXin 2019-0 Yes [id number] 500mg Take 1 Univers 500 mg 5-29 capsule by ity of capsule 00:00: mouth (two) Medical times Branch daily. gabapentin 2018- Yes [id number] 200mg Take 2 Univers 100 mg 5-29 capsules ity of capsule 00:00: by mouth 3 (three) Medical times Branch daily. metFORMIN 2018-0 Yes [id number] 1000mg Take 1 Univers 1,000 mg 5-29 tablet by ity of tablet 00:00: mouth 2 (two) Medical times Branch daily with meals. glipiZIDE 2019-0 Yes [id number] 10mg Take 1 U nivers 10 mg 5-29 tablet by ity of tablet 00:00: mouth 3 (three) Medical times Branch daily before meals. atorvastati 2019-0 Yes [id number] 40mg Take 1 Univers n 40 mg 5-29 tablet by ity of tablet 00:00: mouth at 00 bedtime. Medical Branch lisinopril 2018-0 Yes [id number] 5mg Take 0.5 Univers 10 mg 5-29 tablets by ity of tablet 00:00: mouth (two) Medical times Branch daily. cephALEXin 2019-0 Yes [id number] 500mg Take 1 Univers 500 mg 5-29 capsule by ity of capsule 00:00: mouth (two) Medical times Branch daily. gabapentin 2019-0 Yes [id number] 200mg Take 2 Univers 100 mg 5-29 capsules ity of capsule 00:00: by mouth 3 (three) Medical times Branch daily. metFORMIN 2019-0 Yes [id number] 1000mg Take 1 Univers 1,000 mg 5-29 tablet by ity of tablet 00:00: mouth (two) Medical times Branch daily with meals. glipiZIDE 2019-0 Yes [id number] 10mg Take 1 U nivers 10 mg 5-29 tablet by ity of tablet 00:00: mouth 3 (three) Medical times Branch daily before meals. atorvastati 2019-0 Yes [id number] 40mg Take 1 Univers n 40 mg 5-29 tablet by ity of tablet 00:00: mouth at bedtime. Medical Branch lisinopril 2019-0 Yes [id number] 5mg Take 0.5 Univers 10 mg 5-29 tablets by ity of tablet 00:00: mouth (two) Medical times Branch daily. cephALEXin 2019-0 Yes [id number] 500mg Take 1 Univers 500 mg 5-29 capsule by ity of capsule 00:00: mouth (two) Medical times Branch daily. gabapentin 2019-0 Yes [id number] 200mg Take 2 Univers 100 mg 5-29 capsules ity of capsule 00:00: by mouth 3 (three) Medical times Branch daily. metFORMIN 2019-0 Yes [id number] 1000mg Take 1 Univers 1,000 mg 5-29 tablet by ity of tablet 00:00: mouth (two) Medical times Branch daily with meals. glipiZIDE 2019-0 Yes [id number] 10mg Take 1 U nivers 10 mg 5-29 tablet by ity of tablet 00:00: mouth 3 (three) Medical times Branch daily before meals. atorvastati 2019-0 Yes [id number] 40mg Take 1 Univers n 40 mg 5-29 tablet by ity of tablet 00:00: mouth at [place] 00 bedtime. Medical Branch lisinopril 2019-0 Yes [id number] 5mg Take 0.5 Univers 10 mg 5-29 tablets by ity of tablet 00:00: mouth 2 (two) Medical times Branch daily. cephALEXin 2019-0 Yes [id number] 500mg Take 1 Univers 500 mg 5-29 capsule by ity of capsule 00:00: mouth 2 (two) Medical times Branch daily. gabapentin 2019- Yes [id number] 200mg Take 2 Univers 100 mg 5-29 capsules ity of capsule 00:00: by mouth 3 (three) Medical times Branch daily. metFORMIN 2019- Yes [id number] 1000mg Take 1 Univers 1,000 mg 5-29 tablet by ity of tablet 00:00: mouth 2 (two) Medical times Branch daily with meals. glipiZIDE 2019-0 Yes [id number] 10mg Take 1 U nivers 10 mg 5-29 tablet by ity of tablet 00:00: mouth 3 (three) Medical times Branch daily before meals. atorvastati 2019- Yes [id number] 40mg Take 1 Univers n 40 mg 5-29 tablet by ity of tablet 00:00: mouth at [place] [address] bedtime. Medical Branch lisinopril 2019-0 Yes [id number] 5mg Take 0.5 Univers 10 mg 5-29 tablets by ity of tablet 00:00: mouth 2 (two) Medical times Branch daily. cephALEXin 2019- Yes [id number] 500mg Take 1 Univers 500 mg 5-29 capsule by ity of capsule 00:00: mouth 2 [place] (two) Medical times Branch daily. acetaminoph 2019-0 Yes [id number] 2{tbl} Take 2 Univers en-codeine 3-12 tablets by ity of (TYLENOL-CO 00:00: mouth 3 [place] DEINE #3) 00 (three) Medical 300-30 mg times Branch tablet daily as needed for Pain (scale 4-6) or Pain (scale 7-10). acetaminoph 2018-0 2020- No [id number] 2{tbl} Take 2 Univers en-codeine 3-12 07-19 tablets by it y of (TYLENOL-CO 00:00: 00:00 mouth 3 [place] DEINE #3[place] 00 :00 (three) Medical 300-30 mg times Branch tablet daily as needed for Pain (scale 4-6) or Pain (scale 7-10). Immunizations Ordered Filled Immunization Date Status Comments [facility] e Immunization Name Name Pneumococcal 2018-12-07 Completed Elsa o f Polysaccharide, 00:00:00 [place] Med ical PPSV23 (PNEUMOVAX) Branch Pneumococcal 2018-12-07 Completed Elsa o f Polysaccharide, 00:00:00 [place] Med ical PPSV23 (PNEUMOVAX) Branch Pneumococcal 2018-12-07 Completed Elsa o f Polysaccharide, 00:00:00 [place] Med ical PPSV23 (PNEUMOVAX) Branch Pneumococcal 2018-12-07 Completed Elsa o f Polysaccharide, 00:00:00 [place] Med ical PPSV23 (PNEUMOVAX) Branch Pneumococcal 2018-12-07 Completed Elsa o f Polysaccharide, 00:00:00 [place] Med ical PPSV23 (PNEUMOVAX) Branch Influenza Virus 2018-11-25 Completed Universit y of Vaccine 00:00:00 [facility] Influenza Virus 2018-11-25 Completed Universit y of Vaccine 00:00:00 [facility] Influenza Virus 2018-11-25 Completed Universit y of Vaccine 00:00:00 [facility] Influenza Virus 2018-11-25 Completed Universit y of Vaccine 00:00:00 [facility] Influenza Virus 2018-11-25 Completed Universit y of Vaccine 00:00:00 [facility] Vital Signs Vital Name Observation Time Observation Value Comments Source Systolic blood 2020-07-25 20:50:17 116 mm[Hg] Univer sity of pressure [facility] Diastolic blood 2020-07-25 20:50:17 73 mm[Hg] Unive rsity of [facility] Heart rate 2020-07-25 20:50:17 85 /min [facility] Respiratory rate 2020-07-25 20:50:17 16 /min [facility] Oxygen saturation in 2020-07-25 20:50:17 96 /min [facility] Arterial blood by [facility] Pulse oximetry Branch Body temperature 2020-07-25 17:27:00 36.67 Chrissy [facility] Body weight 2020-07-25 17:27:00 120.203 kg [facility] BMI 2020-07-25 17:27:00 36.96 kg/m2 [facility] Systolic blood 2020-07-25 20:50:17 116 mm[Hg] Univer sity of pressure [place] [facility] Diastolic blood 2020-07-25 20:50:17 73 mm[Hg] Unive rsity of pressure [place] [facility] Heart rate 2020-07-25 20:50:17 85 /min Universi ty of [place] [facility] Respiratory rate 2020-07-25 20:50:17 16 /min Univ ersity of [place] [facility] Oxygen saturation in 2020-07-25 20:50:17 96 /min University of Arterial blood by [employer] Pulse oximetry Branch Body temperature 2020-07-25 17:27:00 36.67 Chrissy Univ ersity of [place] [facility] Body weight 2020-07-25 17:27:00 120.203 kg Universi ty of [place] [facility] BMI 2020-07-25 17:27:00 36.96 kg/m2 Universi ty of [place] [facility] Systolic blood 2020-05-21 08:00:00 111 mm[Hg] Univer sity of pressure [place] [facility] Diastolic blood 2020-05-21 08:00:00 70 mm[Hg] Unive rsity of pressure [place] [facility] Heart rate 2020-05-21 08:00:00 88 /min Universi ty of [place] [facility] Respiratory rate 2020-05-21 08:00:00 18 /min Univ ersity of [place] [facility] Oxygen saturation in 2020-05-21 08:00:00 98 /min University of Arterial blood by [employer] Pulse oximetry Branch Body temperature 2020-05-21 03:36:20 36.78 Chrissy Univ ersity of [place] [facility] BMI 2020-05-21 03:19:00 36.96 kg/m2 Universi ty of [place] [facility] Body weight 2020-05-21 03:19:00 120.203 kg Universi ty of [place] [facility] Systolic blood 2020-05-21 08:00:00 111 mm[Hg] Univer sity of pressure [place] [facility] Diastolic blood 2020-05-21 08:00:00 70 mm[Hg] Unive rsity of pressure [place] [facility] Heart rate 2020-05-21 08:00:00 88 /min Universi ty of [place] [facility] Respiratory rate 2020-05-21 08:00:00 18 /min Univ ersity of [place] [facility] Oxygen saturation in 2020-05-21 08:00:00 98 /min University of Arterial blood by [facility] Pulse oximetry Branch Body temperature 2020-05-21 03:36:20 36.78 Chrissy Univ ersity of [place] [facility] BMI 2020-05-21 03:19:00 36.96 kg/m2 Universi ty of [place] [facility] Body weight 2020-05-21 03:19:00 120.203 kg Universi ty of [place] [facility] Systolic blood 2020-04-16 04:00:00 115 mm[Hg] Univer sity of pressure [facility] Branch Diastolic blood 2020-04-16 04:00:00 68 mm[Hg] Unive rsity of pressure [facility] Heart rate 2020-04-16 04:00:00 79 /min Universi ty of [facility] Respiratory rate 2020-04-16 04:00:00 16 /min Univ ersity of [facility] Branch Oxygen saturation in 2020-04-16 04:00:00 96 /min University of Arterial blood by [facility] Pulse oximetry Branch Body temperature 2020-04-16 00:42:00 37.5 Chrissy Univ ersity of [facility] Body weight 2020-04-16 00:42:00 122.471 kg Universi ty of [place] [facility] BMI 2020-04-16 00:42:00 37.66 kg/m2 Universi ty of [facility] Systolic blood 2020-04-16 04:00:00 115 mm[Hg] Univer sity of pressure [facility] Branch Diastolic blood 2020-04-16 04:00:00 68 mm[Hg] Unive rsity of pressure [place] [facility] [place] Heart rate 2020-04-16 04:00:00 79 /min Universi ty of [facility] Respiratory rate 2020-04-16 04:00:00 16 /min Univ ersity of [place] [facility] Oxygen saturation in 2020-04-16 04:00:00 96 /min University of Arterial blood by [facility] Pulse oximetry Branch Body temperature 2020-04-16 00:42:00 37.5 Chrissy Univ ersity of [facility] Body weight 2020-04-16 00:42:00 122.471 kg Universi ty of [place] [facility] BMI 2020-04-16 00:42:00 37.66 kg/m2 Universi ty of [facility] Branch Procedures Procedure Date / Time Performed Performing Clinician Sourfernanda e INCISION AND DRAINAGE 2020-07-25 20:25:[address] [facility] OF PRIVACY 2020-07-25 17:04:52 [facility]assigned, [facility] Branch CONSENT/REFUSAL FOR 2020-07-25 17:04:36 Doctor Unassigned, No [facility] DIAGNOSIS AND Name Medical Branch TREATMENT [place] DRAIN SKIN ABSCESS 2020-05-21 07:35:00 [facility] BASIC METABOLIC PANEL 2020-05-21 04:49:00 Kamari Salcedo [facility] (NA, K, CL, CO2, Medical Branch GLUCOSE, BUN, CREATININE, CA) CBC WITH DIFF 2020-05-21 04:21:00 Kamari Salcedo [facility] POCT GLUCOSE 2020-04-16 04:28:00 Maria Fernanda Rodrigues [facility] (AUTOMATED) [facility] XR FOOT <3 VW LEFT 2020-04-16 02:04:56 Maria Fernanda Rodrigues [facility] ADC / LCC - DRUG 2020-04-16 01:57:00 Maria Fernanda Rodrigues [facility] SCREEN TRIAGE [facility] HEPATIC FUNCTION 2020-04-16 01:54:00 Maria Fernanda Rodrigues [facility] PANEL ([id number]) Medical Branch (ALB,T.PRO,BILI T,BU/BC,ALT,AST,ALK PHOS) BASIC METABOLIC PANEL 2020-04-16 01:54:00 Maria Fernanda Rodrigues [facility] (NA, K, CL, CO2, Medical Branch GLUCOSE, BUN, CREATININE, CA) CBC WITH DIFF 2020-04-16 01:54:00 Maria Fernanda Rodrigues [facility] N-TERMINAL PRO-BNP 2020-04-16 01:54:00 Maria Fernanda Rodrigues [facility] CONSENT/REFUSAL FOR 2020-04-16 00:32:32 Doctor Unassigned, No [facility] [place] DIAGNOSIS AND Name Medical Branch TREATMENT Encounters Start End Encounter Admission Attending Care Care Encounter Source Date/Time Date/Time Type Type Clinicians Facility Department ID 2020-12-17 2020-12-17 [id number] 2020-11-17 2020-11-17 [id number] 2020-11-07 2020-11-07 [id number] 2020-10-25 2020-10-[address] [facility] [id number] [facility] 2020-07-25 2020-07-25 Emergency [facility] [id number] 12:29:00 16:08:00 Trinidad Sanders [id number] [place] [id number] [place] [id number] 2020-07-25 2020-07-25 Emergency [facility] [id number] Univers 12:29:00 16:08:00 Trinidad Sanders [id number] ity of [place] [id number] [facility] [id number] [place] [id number] Branch 2020-07-25 2020-07-25 Emergency X [facility] ERT [id number] Univers 12:29:00 12:29:00 AUBREEO ity of [facility] 2020-07-25 2020-07-25 Orders Doctor JAVIER [id number] 00:00:00 00:00:00 Only UnassignedDISHA [id number] [place] [facility] [id number] [id number] 2020-07-25 2020-07-25 Orders Doctor JAVIER [id number] Univers 00:00:00 00:00:00 Only UnassignedDISHA [id number] ity of [place] [facility] [id number] [facility] [id number] [facility] 009 Branch 2020-05-20 2020-05-21 Emergency Denisse, TRAUMA [id number] Univers 22:28:00 03:34:00 Kamari Diaz CENTER [id number] ity of [id number] [id number] [facility] 014 [place] 2020-05-20 2020-05-21 Emergency Denisse, TRAUMA [id number] 22:28:00 03:34:00 Kamari CENTER [id number] 2020-05-20 2020-05-20 Emergency X DENISSE, [facility] ERT [id number] Univers 22:28:00 22:28:00 [facility] 2020-04-15 2020-04-16 Emergency [facility] [id number] Univers 19:43:26 00:05:00 Maria Fernanda Sanders [id number] ity of [place] [id number] [facility] [place] [id number] [facility] [address] [place] [address] 2020-04-15 2020-04-16 Emergency [facility] [id number] 19:43:26 00:05:00 Maria Fernanda Sanders [id number] [place] [id number] [place] [id number] [facility] 2020-04-15 2020-04-[address] [facility] ERT [id number] Univers 19:43:26 19:43:[address] [facility] 2020-04-15 2020-04-15 Orders Doctor YAYA [id number] Univers 00:00:00 00:00:00 Only Unassigned, DISHA [id number] ity of [place] [facility] [id number] Jamarcus as [id number] [facility] 009 [place] 2020-04-15 2020-04-15 Orders Doctor YAYA [id number] 00:00:00 00:00:00 Only Unassigned, DISHA [id number] [place] [facility] [id number] Results Test Description Test Time Test Comments Results Result Sour e Comments Incision and 2020-04-29 Kamari Salcedo MD Un iversity of Drainage 4 ? ? 05/21/2020 ?3:15 [facility] 07:35:00 AMIncision and Branch DrainagePerformed by: Kamari Salcedo MDAuthorized by: Kamari Salcedo MD Consent: ?Consent obtained: ?Verbal ?Consent given by: ?Patient ?Risks discussed: ?Bleeding, incomplete drainage, infection and pain ?Alternatives discussed: ?No treatment and observationLocation: ?Type: ?Abscess ?Location: ?Head (occipital region)Pre-procedure details: ?Skin preparation: ?BetadineAnesthesia (see MAR for exact dosages): ?Anesthesia method: ?Local infiltration ?Local anesthetic: ?Lidocaine 1% w/o epiProcedure type: ?Complexity: ?ComplexProcedure details: ?Needle aspiration: no ? ?Incision types: ?Single straight ?Incision depth: ?Subcutaneous ?Scalpel blade: ?11 ?Wound management: ?Probed and deloculated ?Drainage: ?Bloody and purulent ?Drainage amount: ?Moderate ?Wound treatment: ?Wound left open ?Packing materials: ?1/2 in iodoform gauze ?Amount 1/2" iodoform: ?8"Post-procedure details: ?Patient tolerance of procedure: ?Tolerated well, no immediate complications BASIC METABOLIC PANEL (NA, K, CL, CO2, GLUCOSE, BUN, 2020-04 05:06:00 CREATININE, CA) Test Item Value Reference Range Interpretation Comme nts NA (test code = 0039760625) 135 mmol/L 135-145 K (test code = 1900428250) 4.6 mmol/L 3.5-5 S light hemolysis CL (test code = 6073274441) 103 mmol/L 98-108 CO2 TOTAL (test code = 22 mmol/L 23-31 L 2021245443) AGAP (test code = 2-16 4063315830) BUN (test code = 13 mg/dL 7-23 Slight hemo lysis 8335164214) GLUCOSE (test code = 238 mg/dL 70-110 H 8319430175) CREATININE (test code = 0.61 mg/dL 0.6-1.25 3074296631) CALCIUM (test code = 8.7 mg/dL 8.6-10.6 4800618982) eGFR Calculation mL/min/1.73m2 (Non-) (test code = 0368028765) eGFR Calculation ( mL/min/1.73m2 Cong[place]ese) (test code = 0416956761) LUIS ALBERTO (test code = LUIS ALBERTO) Association of Glomerular Filtration Rate (GFR) and Staging of Kidney Disease* + + +--- +| GFR (mL/min/1.73 m2) ?| With Kidney Damage ?| ?Without Kidney Damage+ -----+ --+ ---+| ?>90 ?| ?Stage one ?| ? Normal ?+ + +-- +| ?60-89 ?| ?Stage two ?| ? Decreased GFR ? + + +--- +| ?30-59 ?| ?Stage three ?| ? Stage three ? + + +--- +| ?15-29 ?| ?Stage four ? | ? Stage four ?+ + +-- +| ?<15 (or dialysis) ? ?| ?Stage five ? | ? Stage five ?+ + +-- + *Each stage assumes the associated GFR level has been in effect for at least three months. ?Stages 1 to 5, with or without kidney disease, indicate chronic kidney disease. Notes: Determination of stages one and two (with eGFR >59mL/min/1.73 m2) requires estimation of kidney damage for at least three months as defined by structural or functional abnormalities of the kidney, manifested by either:Pathological abnormalities or Markers of kidney damage (including abnormalities in the composition of the blood or urine or abnormalities in imaging tests). Lab Interpretation (test Abnormal code = 95480-1) [facility] WITH [id number] 04:31:00 Test Item Value Reference Range Interpretation Comments WBC (test code = See_Comment H [Automated 1461-2) message] The sy stem which generated this result transmitted reference range : 4.20 - 10.70 10*3/?L. The reference range was not used to interpret this result as normal/abnormal . RBC (test code = See_Comment [Automated 569-8) message] The sy stem which generated this result transmitted reference range : 4.26 - 5.52 10*6/?L. The reference range was not used to interpret this result as normal/abnormal . HGB (test code = 13.0 g/dL 12.2-16.4 718-7) HCT (test code = 38.8 % 38.4-49.3 4544-3) MCV (test code = 90.9 fL 81.7-95.6 787-2) MCH (test code = 30.4 pg 26.1-32.7 785-6) MCHC (test code = 33.5 g/dL 31.2-35 786-4) RDW-SD (test code = 42.5 fL 38.5-51.6 38884-3) RDW-CV (test code = 13.0 % 12.1-15.4 788-0) PLT (test code = See_Comment [Automated 777-3) message] The sy stem which generated this result transmitted reference range : 150 - 328 10*3/ ?L. The reference r daniel was not used to interpret this result as normal/abnormal . MPV (test code = 9.5 fL 9.8-13 L 21177-3) NRBC/100 WBC (test See_Comment [Automat ed code = 4662090027) message] The system which generated this result transmitted reference range : 0.0 - 10.0 /100 WBCs. The refer ence range was not u sed to interpret th is result as normal/abnormal . NRBC x10^3 (test code <0.01 See_Comment [Auto mated = 2006099830) message] The s ystem which generated this result transmitted reference range : 10*3/?L. The reference range was not used to interpret this result as normal/abnormal . GRAN MAT (NEUT) % 70.7 % (test code = 770-8) IMM GRAN % (test code 0.30 % = 8707114211) LYMPH % (test code = 19.8 % 736-9) MONO % (test code = 7.8 % 5905-5) EOS % (test code = 0.7 % 713-8) BASO % (test code = 0.7 % 706-2) GRAN MAT x10^3(ANC) 7.61 10*3/uL 1.99-6.95 H (test code = 0487815711) IMM GRAN x10^3 (test 0.03 10*3/uL 0-0.06 code = 6544589830) LYMPH x10^3 (test code 2.13 10*3/uL 1.09-3.23 = 731-0) MONO x10^3 (test code 0.84 10*3/uL 0.36-1.02 = 742-7) EOS x10^3 (test code = 0.07 10*3/uL 0.06-0.53 711-2) BASO x10^3 (test code 0.08 10*3/uL 0.01-0.09 = 704-7) Lab Interpretation Abnormal (test code = 76698-2) [facility]2020-04-16 04:57:00 Test Item Value Reference Range Interpretation Comments POCT GLU (test code = 0344988561) 402 mg/dL 70-110 H Lab Interpretation (test code = Abnormal 80138-2) [facility] [id number] 03:18:00 Test Item Value Reference Range Interpretation Comments NT-proBNP (test code 42 pg/mL See_Comment [Autom ated = 4516973146) message] The system which generated this result transmitted reference range : <=125. The reference range was not used to interpret this result as normal/abnormal . LUIS ALBERTO (test code = LUIS ALBERTO) Biotin has been reported to cause a negative bias, interpret results relative to patient's use of biotin. Lab Interpretation Normal (test code = 77223-8) [facility] Metabolic Panel (NA, K, CL, CO2, GLUCOSE, BUN, CREATININE, CA)2020-04-16 03:13:00 Test Item Value Reference Range Interpretation Comments NA (test code = 134 mmol/L 135-145 L 7924905447) K (test code = 4.4 mmol/L 3.5-5 1712328109) CL (test code = 100 mmol/L 98-108 7308647352) CO2 TOTAL (test code = 24 mmol/L 23-31 1820501892) AGAP (test code = 2-16 4587182374) BUN (test code = 15 mg/dL 7-23 5362268812) GLUCOSE (test code = 455 mg/dL 70-110 HH 2705486123) CREATININE (test code = 0.60 mg/dL 0.6-1.25 2515496737) CALCIUM (test code = 9.6 mg/dL 8.6-10.6 9269303109) eGFR Calculation mL/min/1.73m2 (Non-) (test code = 7201209688) eGFR Calculation mL/min/1.73m2 () (test code = 7374684739) LUIS ALBERTO (test code = LUIS ALBERTO) Association of Glomerular Filtration Rate (GFR) and Staging of Kidney Disease* + --+ --+ ------+| GFR (mL/min/1.73 m2) ?| With Kidney Damage ?| ?Without Kidney Damage+ --------+ --------+ +| ?>90 ?| ?Stage one ?| ? Normal ?+ ---+ ---+ -------+| ?60-89 ?| ?Stage two ?| ? Decreased GFR ? + --+ --+ ------+| ?30-59 ?| ?Stage three ?| ? Stage three ? + --+ --+ ------+| ?15-29 ?| ?Stage four ? | ? Stage four ?+ ---+ ---+ -------+| ?<15 (or dialysis) ? ?| ?Stage five ? | ? Stage five ?+ ---+ ---+ -------+ *Each stage assumes the associated GFR level has been in effect for at least three months. ?Stages 1 to 5, with or without kidney disease, indicate chronic kidney disease. Notes: Determination of stages one and two (with eGFR >59mL/min/1.73 m2) requires estimation of kidney damage for at least three months as defined by structural or functional abnormalities of the kidney, manifested by either:Pathological abnormalities or Markers of kidney damage (including abnormalities in the composition of the blood or urine or abnormalities in imaging tests). Lab Interpretation Abnormal (test code = 69935-7) [facility] (ALB, T.PRO, BILI T, BU/BC, ALT, AST, ALK PHOS)2020-04-16 03:10:00 Test Item Value Reference Range Interpretation Comments TOTAL BILI (test code = 6017988630) 0.5 mg/dL 0.1-1.1 BILI UNCON (test code = 7685485453) 0.5 mg/dL 0.1-1.1 BILI CONJ (test code = 5385238306) 0.0 mg/dL 0-0.3 T PROTEIN (test code = 5708013812) 7.5 g/dL 6.3-8.2 ALBUMIN (test code = 0543298225) 4.1 g/dL 3.5-5 ALK PHOS (test code = 4763219305) 104 U/L 34-122 ALTv (test code = 1742-6) 27 U/L 5-50 AST(SGOT) (test code = 3671544823) 32 U/L 13-40 Lab Interpretation (test code = Normal 10532-6) [facility] with [id number] 03:05:00 Test Item Value Reference Range Interpretation Comments WBC (test code = See_Comment [Automated 6501-2) message] The sy stem which generated this result transmitted reference range : 4.20 - 10.70 10*3/?L. The reference range was not used to interpret this result as normal/abnormal . RBC (test code = See_Comment [Automated 649-8) message] The sy stem which generated this result transmitted reference range : 4.26 - 5.52 10*6/?L. The reference range was not used to interpret this result as normal/abnormal . HGB (test code = 13.7 g/dL 12.2-16.4 718-7) HCT (test code = 39.8 % 38.4-49.3 4544-3) MCV (test code = 91.1 fL 81.7-95.6 787-2) MCH (test code = 31.4 pg 26.1-32.7 785-6) MCHC (test code = 34.4 g/dL 31.2-35 786-4) RDW-SD (test code = 40.0 fL 38.5-51.6 85429-8) RDW-CV (test code = 12.0 % 12.1-15.4 L 788-0) PLT (test code = See_Comment [Automated 697-3) message] The sy stem which generated this result transmitted reference range : 150 - 328 10*3/ ?L. The reference r daniel was not used to interpret this result as normal/abnormal . MPV (test code = 10.0 fL 9.8-13 11365-5) NRBC/100 WBC (test See_Comment [Automat ed code = 1543740178) message] The system which generated this result transmitted reference range : 0.0 - 10.0 /100 WBCs. The refer ence range was not u sed to interpret th is result as normal/abnormal . NRBC x10^3 (test code <0.01 See_Comment [Auto mated = 0179200588) message] The s ystem which generated this result transmitted reference range : 10*3/?L. The reference range was not used to interpret this result as normal/abnormal . GRAN MAT (NEUT) % 61.8 % (test code = 770-8) IMM GRAN % (test code 0.50 % = 3191174690) LYMPH % (test code = 27.4 % 736-9) MONO % (test code = 7.6 % 5905-5) EOS % (test code = 2.0 % 713-8) BASO % (test code = 0.7 % 706-2) GRAN MAT x10^3(ANC) 4.62 10*3/uL 1.99-6.95 (test code = 5128886473) IMM GRAN x10^3 (test 0.04 10*3/uL 0-0.06 code = 4881090346) LYMPH x10^3 (test code 2.05 10*3/uL 1.09-3.23 = 731-0) MONO x10^3 (test code 0.57 10*3/uL 0.36-1.02 = 742-7) EOS x10^3 (test code = 0.15 10*3/uL 0.06-0.53 711-2) BASO x10^3 (test code 0.05 10*3/uL 0.01-0.09 = 704-7) Lab Interpretation Abnormal (test code = 28871-5) [facility] - DRUG SCREEN [id number] 02:50:00 Test Item Value Reference Range Interpretation Comments BENZO U (test code = Negative Negative 5869252792) JOSE U (test code = Negative Negative 1219102260) AMPHET (test code = Negative Negative 9266564118) THC (test code = Negative Negative 9590225231) METHADONE (test code = Negative Negative 6397501885) Meth U (test code = Negative Negative 6380942732) OPIATES (test code = Presumptive Positive Negative A 5401918779) Cocaine Metabolite (test Negative Negative code = 0530065096) PROPOXY (test code = Negative Negative 4051413296) Tric U (test code = Negative Negative 3582907232) PCP (test code = Negative Negative 7129266592) OXYCOD (test code = Negative Negative 5858982289) LUIS ALBERTO (test code = LUIS ALBERTO) Urine Drug Cutoff Ranges Benzodiazepines: ? ? 150 ng/mLBarbiturates: ?200 ng/mLAmphetamine: ? 500 ng/mLCannabinoids: ?50 ?ng/mLMethadone: ? 200 ng/mLMethamphetamine: ? ? 500 ng/mL Opiates: ? 100 ng/mL or 2000 ng/mLCocaine: ? 150 ng/mLPropoxyphene: ?300 ng/mLTricyclics: ?300 ng/mLOxycodone: ? 100 ng/mLPCP: ? 25 ?ng/mL The results are to be used only for medical (i.e., treatment) purposes. Unconfirmed screening results must not be used for non-medical purposes (e.g., employment testing, legal testing). Lab Interpretation (test Abnormal code = 22144-4) [facility] FOOT <3 VW [id number] 02:26:07 No radiographic evidence of osteomyelitis.2. Soft tissue swelling EXAM: Left foot 3 views portableHISTORY: ?r/o osteo; TECHNIQUE:AP lateral and oblique views of the left foot are obtained. COMPARISON: 02/15/2019 FINDINGS:Changes of previous amputation are seen at the level of the distalend of the metatarsal of the second ray. Degenerative changes are seen inthe PIP and DIP joints of the foot. Soft tissue swelling is seen involving the forefoot. Vascularcalcifications are seen in the dorsal pedal and tibialis posteriorarteries. Rimb, Radiant Results Inft User - 04/15/2020 9:27 PM CDTEXAM: Left foot 3 views portableHISTORY: r/o osteo;TECHNIQUE:AP lateral and oblique views of the left foot are obt ained.COMPARISON: 02/15/2019FINDINGS:Changes of previous amputation are seen at the level of the distalend of the metatarsal of the second ray. Degenerative changes are seen inthe PIP and DIP joints of the foot.Soft tissue swelling is seen involving the forefoot. Vascularcalcifications are seen in the dorsal pedal and tibialis posteriorarteries.IMPRESSIONNo radiographic evidence of osteomyelitis.2. Soft tissue swellingUnBaylor Scott & [facility]
[2021-08-13] MEDS ORDERED: HYDROCODONE/APAP 10/325 TAB ONE (20:06)
[2021-08-13 20:07] LABS: Absolute Lymphocytes (CBC) 2.6 K/uL (0.7-4.9); Basophils % 0.9 % (0-1.3); Hematocrit 42.7 % (39.6-49.0); Lymphocytes % 28.8 % (15.3-44.8); MPV 7.9 fL (7.6-11.3); RBC Red Blood Cell Count 4.79 M/uL (4.33-5.43)
[2021-08-13 20:25] LABS: BUN Blood Urea Nitrogen 16 mg/dL (7-18); Bicarbonate 24 mmol/L (21-32); Glucose Level 335 mg/dL (74-106); Potassium 4.1 mmol/L (3.5-5.1); Sodium Level 138 mmol/L (136-145)
--- NOTE | 2021-08-13 20:27 | RAD REPORT ---
EXAM DESCRIPTION: RAD - Shoulder Right 2 View - 08/13/2021 8:15 pm CLINICAL HISTORY: shoulder pain COMPARISON: No comparisons FINDINGS: No acute fracture. No malalignment. Degenerative changes are present at the right AC joint . IMPRESSION: No acute osseous abnormality involving the right shoulder.
--- NOTE | 2021-08-13 20:27 | RAD REPORT ---
EXAM DESCRIPTION: RAD - Wrist Left 3 View - 08/13/2021 8:15 pm CLINICAL HISTORY: PAIN COMPARISON: No comparisons FINDINGS: No acute fracture. No malalignment. No significant focal degenerative changes. Peripheral vascular calcifications. Degenerative changes are present at the base of the thumb. IMPRESSION: No acute osseous abnormality involving the left wrist.
[2021-08-13] MEDS ORDERED: MORPHINE 2 MG/ML SYR ONE (22:31)
[2021-08-13] MEDS ORDERED: DIAZEPAM 10 MG/2 ML INJ SYRINGE ONE (22:32)
[2021-08-13] MEDS ORDERED: KETOROLAC 30 MG/ML INJ ONE (22:32)
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
[2021-08-14 01:05] VITALS: TEMP 98.4
[2021-08-14 01:13] VITALS: BP 127/48; O2SAT 96
--- NOTE | 2021-08-14 16:58 | EKG ---
Test Date: 2021-08-13 Test Time: 18:40:30 Repairer: SHEREE MEASUREMENT RESULTS: Intervals: Rate: 99 AR: 160 QRSD: 90 QT: 342 QTc: 438 [place]: P: 58 AR: 160 QRS: 116 T: 81 INTERPRETIVE STATEMENTS: Normal sinus rhythm Right axis deviation Low voltage QRS Septal infarct, age undetermined Abnormal ECG Compared to ECG 04/27/2021 16:41:11 No significant changes Electronically Signed On 08-14-21 16:57:04 SPECIAL EDUCATION PROFESSIONAL by Alfonso Kam
== END 2021-08-13 23:02 | disposition home or self-care (01) ==
LOC: ER 18:14
DX: E11.65 Type 2 diabetes mellitus with hyperglycemia (principal); M25.532 Pain in left wrist; I10 Essential (primary) hypertension
CPT/HCPCS: 93005; 85025; 80048; 36415; 82947; 84484; 73030; 73110; 96375; 96374; 99285; J3360; J2270

== ENCOUNTER 2021-09-26 09:37 | Inpatient (IN) | payer OTHER ==
--- OUTSIDE RECORDS SUMMARY | 2021-09-26 09:41 | XMS REPORT | Continuity of Care Document ---
:1970 Author Organization [facility] t Address [address] [place] [address] Care Team Providers Name Role Phone Trinidad Masterson Attending Clinician Bubba [facility] Attending Clinician Unavailable Doctor Unassigned, Name Attending Clinician Unavailable Denisse SIEGEL, E Attending Clinician Kiara SALCEDO Attending Clinician Unavailable Adolfo GUSMAN, G Attending Clinician Christin RODRIGUES Attending Clinician Unavailable Payers Payer Name Policy Type Policy Number Effective Date Expiration Date S ource Advance Directives Directive Decision Effective Termination Comments Source Date Date Healthcare Agents on N/A [facility] FileNameRelation[facility] Agent Medical RelationshipCommunicationECU Health [facility] Care [phone] (Mobile) Problems Condition Condition Condition Status Onset Resolution Last Treating Co mments Source Name Details Category Date Date Treatment Clinician Date Diabetic Diabetic Disease Active 2019-0 Unive rs foot foot 5-22 ity of infection infection 00:00: [address] Osteomyeli Osteomyeli Disease Active 2019-0 U nivers tis of tis of 5-21 ity of foot foot 00:00: [address] Osteomyeli Osteomyeli Disease Active 2019-0 U nivers tis tis 3-09 ity of 00:00: [address] Obesity Obesity Disease Active 2019-0 Univers (BMI (BMI 3-09 ity of 30-39.9) 30-39.9) 00:00: [address] Allergies, Adverse Reactions, Alerts Allergy Allergy Status Severity Reaction(s) Onset Inactive Treating Comm ents Source Name Type Date Date Clinician NO KNOWN Drug Active Univers ALLERGIE Class ity of S [facility] Social History Social Habit Start Date Stop Date Quantity Comments Source Exposure to Not sure [facility] SARS-CoV-2 [facility] (event) Branch [facility] Tobacco use and 2020-07-25 2020-07-25 Never used Universit y of exposure 00:00:00 00:00:00 [facility] Alcohol intake 2020-07-25 2020-07-25 Current [facility] 00:00:00 00:00:00 non-drinker of [facility] alcohol [place] (finding) Smoking Status Start Date Stop Date Source Never smoker [facility] Medications Ordered Filled Start Stop Current Ordering Indication Dosage Frequency Signature Comments Components Source Medication Medication Date Date Medication? Clinician (SIG) Name Name clindamycin 2019-09 No 600mg 600 mg, U nivers (CLEOCIN) 07-25 Intramuscu ity of injection 21:30: 20:51 lar, [place]CE, [place] 600 mg 00 :00 1 dose, [facility] Branch 07/25/20 at 1630, JIMENA
Re ason [...] 1 Jamarcus as mg 00 :00 dose, [facility] Medical 07/25/20 Branch at 1630, JIMENA HYDROcodone 2019-09 No 1{tbl} 1 tablet, Univers -acetaminop 07-25 Oral, ity of hen (NORCO) 19:45: 19:14 [place]CE[place] 10-325 mg 00 :00 dose, [facility] Medic al tablet 1 07/25/20 Branch tablet at 1445, Routine traMADoL 50 2019-09 Yes [id number] 50mg Take 1 Univ ers mg tablet 0-28 tablet by ity o f 00:00: mouth [place] 00 every 6 Medical (six) Branch hours as needed for Pain (scale 7-10). Indication s: acute pain clindamycin 2019- 2020- No [id number] 300mg Take 1 Univers 300 mg 0-28 11-05 capsule by ity of capsule 00:00: 05:59 mouth 3 [place] 00 :00 (three) Medical times Branch daily for 7 days. clindamycin 2019-09- No [id number] 150mg Take 1 Univers 150 mg 0-28 11-05 capsule by ity of capsule 00:00: 05:59 mouth 3 [place] 00 :00 (three) Medical times Branch daily for 7 days. morpHINE 2019-0 2020- No 4mg 4 mg, Slow Un osvaldo injection 4 05-21 08-24 IV Push, ity of mg 08:30: 07:32 ONCE, 1 [place] 00 :00 dose, [facility] Medical 05/21/20 at Branch 0330, STAT doxycycline 2019-0 2020- No 100mg 100 mg, U nivers hyclate 05-21 08-24 Oral, ity of (Vibramycin 06:15: 05:36 [place]CE[place] capsule 00 :00 dose, [facility] Medic al 100 mg 05/21/20 at Branch 0115, JIMENA
Re ason for Anti-Infec tive: Documented Infection< br>Documen nanci Infection Site: Skin / Soft Tissue
Duration of Therapy: 10 days morpHINE 2019-0 2020- No 4mg 4 mg, Slow Un osvaldo injection 4 05-21 08-24 IV Push, ity of mg 05:45: 04:50 ONCE, 1 [place] 00 :00 dose, [facility] Medical 05/21/20 at Branch 0045, STAT sodium 2020-0 Yes Topical, Univers hypochlorit 8-24 BID, First it y of e 0.125 % 04:45: dose on ([facility] SOLUTION) 05/20/20 at [facility] solution 2345, Until Discontinu ed, JIMENA doxycycline 2020-0 Yes [id number] 100mg Take 1 Univers hyclate 100 8-24 capsule by it y of mg capsule 00:00: [place] (two) Medical times Branch daily. doxycycline 2020-0 Yes [id number] 100mg Take 1 Univers hyclate 100 8-24 capsule by it y of mg capsule 00:00: [place] (two) Medical times Branch daily. doxycycline 2020-0 Yes [id number] 100mg Take 1 Univers hyclate 100 8-24 [...] o f human 05:15: 04:26 , ONCE, [place] (HUMULIN R) 00 :00 1 dose, Medic al injection [facility] Branch 10 Units 04/16/20 at 0015, [...] mg 00 :00 ONCE, 1 Medical dose, [place] Branch 04/15/20 at 2200, Routine
member of parliament approving Restricted medication : MARIA FERNANDA RODRIGUES glipiZIDE 2020- No [id number] 10mg Take 1 U nivers 10 mg 04-15 tablet by ity of tablet 00:00: 04:59 mouth 2 [place] 00 :00 (two) Medical times Branch daily before breakfast and dinner for 30 days. lisinopril 2020- No [id number] 5mg Take 1 Univers 5 mg tablet 04-15 tablet by it y of 00:00: 04:59 mouth 2 [place] 00 :00 (two) Medical times Branch daily for 30 days. atorvastati 2020- No [id number] 40mg Take 1 Univers n 40 mg 04-15 tablet by ity of tablet 00:00: 04:59 mouth at [place] 00 :00 bedtime Medical for 30 Branch days. metFORMIN 2020- No [id number] 1000mg Take 1 Univers 1,000 mg 04-15 tablet by ity o f tablet 00:00: 04:59 mouth 2 [place] 00 :00 (two) Medical times Branch daily with meals for 30 days. gabapentin 2020- No [id number] 200mg Take 2 Univers 100 mg 04-15 [...] days. Indication s: acute pain escitalopra Yes [id number] 10mg Take 1 Univers m oxalate 5-30 tablet by ity o f 10 mg 00:00: mouth [place] tablet 00 daily. Medical Branch escitalopra Yes [id number] 10mg Take 1 Univers m oxalate 5-30 tablet by ity o f 10 mg 00:00: mouth [place] tablet 00 daily. Medical Branch escitalopra Yes [id number] 10mg Take 1 Univers m oxalate 5-30 tablet by ity o f 10 mg 00:00: mouth [place] tablet 00 daily. Medical Branch escitalopra Yes [id number] 10mg Take 1 Univers m oxalate 5-30 tablet by ity o f 10 mg 00:00: mouth [place] tablet 00 daily. Medical Branch escitalopra 2019-0 Yes [id number] 10mg Take 1 Univers m oxalate 5-30 tablet by ity o f 10 mg 00:00: mouth [place] tablet 00 daily. Medical Branch gabapentin 2019-0 Yes [id number] 200mg Take 2 Univers 100 mg 5-29 capsules ity of capsule 00:00: by mouth 3 [place] (three) Medical times Branch daily. metFORMIN 2019-0 Yes [id number] 1000mg Take 1 Univers 1,000 mg 5-29 tablet by ity of tablet 00:00: mouth 2 (two) Medical times Branch daily with meals. glipiZIDE 2019- Yes [id number] 10mg Take 1 U nivers 10 mg 5-29 tablet by ity of tablet 00:00: mouth 3 (three) Medical times Branch daily before meals. atorvastati Yes [id number] 40mg Take 1 Univers n 40 mg 5-29 tablet by ity of tablet 00:00: mouth at 00 bedtime. Medical Branch lisinopril 2018- Yes [id number] 5mg Take 0.5 Univers 10 mg 5-29 tablets by ity of tablet 00:00: mouth 2 (two) Medical times Branch daily. cephALEXin 2019-0 Yes [id number] 500mg Take 1 Univers 500 mg 5-29 capsule by ity of capsule 00:00: mouth (two) Medical times Branch daily. gabapentin 2018- Yes [id number] 200mg Take 2 Univers 100 mg 5-29 capsules ity of capsule 00:00: by mouth 3 (three) Medical times Branch daily. metFORMIN 2018-0 Yes [id number] 1000mg Take 1 Univers 1,000 mg 5-29 tablet by ity of tablet 00:00: mouth 2 (two) Medical times Branch daily with meals. glipiZIDE 2019-0 Yes [id number] 10mg Take 1 U nivers 10 mg 5-29 tablet by ity of tablet 00:00: mouth 3 (three) Medical times Branch daily before meals. atorvastati 2019-0 Yes [id number] 40mg Take 1 Univers n 40 mg 5-29 tablet by ity of tablet 00:00: mouth at 00 bedtime. Medical Branch lisinopril 2018-0 Yes [id number] 5mg Take 0.5 Univers 10 mg 5-29 tablets by ity of tablet 00:00: mouth (two) Medical times Branch daily. cephALEXin 2019-0 Yes [id number] 500mg Take 1 Univers 500 mg 5-29 capsule by ity of capsule 00:00: mouth (two) Medical times Branch daily. gabapentin 2019-0 Yes [id number] 200mg Take 2 Univers 100 mg 5-29 capsules ity of capsule 00:00: by mouth 3 (three) Medical times Branch daily. metFORMIN 2019-0 Yes [id number] 1000mg Take 1 Univers 1,000 mg 5-29 tablet by ity of tablet 00:00: mouth (two) Medical times Branch daily with meals. glipiZIDE 2019-0 Yes [id number] 10mg Take 1 U nivers 10 mg 5-29 tablet by ity of tablet 00:00: mouth 3 (three) Medical times Branch daily before meals. atorvastati 2019-0 Yes [id number] 40mg Take 1 Univers n 40 mg 5-29 tablet by ity of tablet 00:00: mouth at bedtime. Medical Branch lisinopril 2019-0 Yes [id number] 5mg Take 0.5 Univers 10 mg 5-29 tablets by ity of tablet 00:00: mouth (two) Medical times Branch daily. cephALEXin 2019-0 Yes [id number] 500mg Take 1 Univers 500 mg 5-29 capsule by ity of capsule 00:00: mouth (two) Medical times Branch daily. gabapentin 2019-0 Yes [id number] 200mg Take 2 Univers 100 mg 5-29 capsules ity of capsule 00:00: by mouth 3 (three) Medical times Branch daily. metFORMIN 2019-0 Yes [id number] 1000mg Take 1 Univers 1,000 mg 5-29 tablet by ity of tablet 00:00: mouth (two) Medical times Branch daily with meals. glipiZIDE 2019-0 Yes [id number] 10mg Take 1 U nivers 10 mg 5-29 tablet by ity of tablet 00:00: mouth 3 (three) Medical times Branch daily before meals. atorvastati 2019-0 Yes [id number] 40mg Take 1 Univers n 40 mg 5-29 tablet by ity of tablet 00:00: mouth at [place] 00 bedtime. Medical Branch lisinopril 2019-0 Yes [id number] 5mg Take 0.5 Univers 10 mg 5-29 tablets by ity of tablet 00:00: mouth 2 (two) Medical times Branch daily. cephALEXin 2019-0 Yes [id number] 500mg Take 1 Univers 500 mg 5-29 capsule by ity of capsule 00:00: mouth 2 (two) Medical times Branch daily. gabapentin 2019- Yes [id number] 200mg Take 2 Univers 100 mg 5-29 capsules ity of capsule 00:00: by mouth 3 (three) Medical times Branch daily. metFORMIN 2019- Yes [id number] 1000mg Take 1 Univers 1,000 mg 5-29 tablet by ity of tablet 00:00: mouth 2 (two) Medical times Branch daily with meals. glipiZIDE 2019-0 Yes [id number] 10mg Take 1 U nivers 10 mg 5-29 tablet by ity of tablet 00:00: mouth 3 (three) Medical times Branch daily before meals. atorvastati 2019- Yes [id number] 40mg Take 1 Univers n 40 mg 5-29 tablet by ity of tablet 00:00: mouth at [place] [address] bedtime. Medical Branch lisinopril 2019-0 Yes [id number] 5mg Take 0.5 Univers 10 mg 5-29 tablets by ity of tablet 00:00: mouth 2 (two) Medical times Branch daily. cephALEXin 2019- Yes [id number] 500mg Take 1 Univers 500 mg 5-29 capsule by ity of capsule 00:00: mouth 2 [place] (two) Medical times Branch daily. acetaminoph 2019-0 Yes [id number] 2{tbl} Take 2 Univers en-codeine 3-12 tablets by ity of (TYLENOL-CO 00:00: mouth 3 [place] DEINE #3) 00 (three) Medical 300-30 mg times Branch tablet daily as needed for Pain (scale 4-6) or Pain (scale 7-10). acetaminoph 2018-0 2020- No [id number] 2{tbl} Take 2 Univers en-codeine 3-12 07-19 tablets by it y of (TYLENOL-CO 00:00: 00:00 mouth 3 [place] DEINE #3) 00 :00 (three) Medical 300-30 mg times Branch tablet daily as needed for Pain (scale 4-6) or Pain (scale 7-10). Immunizations Ordered Filled Immunization Date Status Comments [facility] e Immunization Name Name Pneumococcal 2018-12-07 Completed [place] o f Polysaccharide, 00:00:00 [place] Med ical PPSV23 (PNEUMOVAX) Branch Pneumococcal 2018-12-07 Completed [place] o f Polysaccharide, 00:00:00 [place] Med ical PPSV23 (PNEUMOVAX) Branch Pneumococcal 2018-12-07 Completed [place] o f Polysaccharide, 00:00:00 [place] Med ical PPSV23 (PNEUMOVAX) Branch Pneumococcal 2018-12-07 Completed [place] o f Polysaccharide, 00:00:00 [place] Med ical PPSV23 (PNEUMOVAX) Branch Pneumococcal 2018-12-07 Completed [place] o f Polysaccharide, 00:00:00 [place] Med ical PPSV23 (PNEUMOVAX) Branch Influenza Virus 2018-11-25 Completed Universit y of Vaccine 00:00:00 [facility] Influenza Virus 2018-11-25 Completed Universit y of Vaccine 00:00:00 [facility] Influenza Virus 2018-11-25 Completed Universit y of Vaccine 00:00:00 [facility] Influenza Virus 2018-11-25 Completed Universit y of Vaccine 00:00:00 [facility] Influenza Virus 2018-11-25 Completed Universit y of Vaccine 00:00:00 [facility] Vital Signs Vital Name Observation Time Observation Value Comments Source Systolic blood 2020-07-25 20:50:17 116 mm[Hg] Univer sity of pressure [facility] Diastolic blood 2020-07-25 20:50:17 73 mm[Hg] Unive rsity of [facility] Heart rate 2020-07-25 20:50:17 85 /min [facility] Respiratory rate 2020-07-25 20:50:17 16 /min [facility] Oxygen saturation in 2020-07-25 20:50:17 96 /min [facility] Arterial blood by [facility] Pulse oximetry Branch Body temperature 2020-07-25 17:27:00 36.67 [facility] Body weight 2020-07-25 17:27:00 120.203 kg [facility] BMI 2020-07-25 17:27:00 36.96 kg/m2 [facility] Systolic blood 2020-07-25 20:50:17 116 mm[Hg] Univer sity of pressure [place] [facility] Diastolic blood 2020-07-25 20:50:17 73 mm[Hg] Unive rsity of pressure [place] [facility] Heart rate 2020-07-25 20:50:17 85 /min Universi ty of [place] [facility] Respiratory rate 2020-07-25 20:50:17 16 /min Univ ersity of [place] [facility] Oxygen saturation in 2020-07-25 20:50:17 96 /min University of Arterial blood by Fuhu ariel Pulse oximetry Branch Body temperature 2020-07-25 17:27:00 36.67 Chrissy Univ ersity of [place] [facility] Body weight 2020-07-25 17:27:00 120.203 kg Universi ty of [place] [facility] BMI 2020-07-25 17:27:00 36.96 kg/m2 Universi ty of [place] [facility] Systolic blood 2020-05-21 08:00:00 111 mm[Hg] Univer sity of pressure [place] [facility] Diastolic blood 2020-05-21 08:00:00 70 mm[Hg] Unive rsity of pressure [place] [facility] Heart rate 2020-05-21 08:00:00 88 /min Universi ty of [place] [facility] Respiratory rate 2020-05-21 08:00:00 18 /min Univ ersity of [place] [facility] Oxygen saturation in 2020-05-21 08:00:00 98 /min University of Arterial blood by Fuhu ariel Pulse oximetry Branch Body temperature 2020-05-21 03:36:20 36.78 Chrissy Univ ersity of [place] [facility] BMI 2020-05-21 03:19:00 36.96 kg/m2 Universi ty of [place] [facility] Body weight 2020-05-21 03:19:00 120.203 kg Universi ty of [place] [facility] Systolic blood 2020-05-21 08:00:00 111 mm[Hg] Univer sity of pressure [place] [facility] Diastolic blood 2020-05-21 08:00:00 70 mm[Hg] Unive rsity of pressure [place] [facility] Heart rate 2020-05-21 08:00:00 88 /min Universi ty of [place] [facility] Respiratory rate 2020-05-21 08:00:00 18 /min Univ ersity of [place] [facility] Oxygen saturation in 2020-05-21 08:00:00 98 /min University of Arterial blood by [facility] Pulse oximetry Branch Body temperature 2020-05-21 03:36:20 36.78 Chrissy Univ ersity of [place] [facility] BMI 2020-05-21 03:19:00 36.96 kg/m2 Universi ty of [place] [facility] Body weight 2020-05-21 03:19:00 120.203 kg Universi ty of [place] [facility] Systolic blood 2020-04-16 04:00:00 115 mm[Hg] Univer sity of pressure [facility] Branch Diastolic blood 2020-04-16 04:00:00 68 mm[Hg] Unive rsity of pressure [facility] Heart rate 2020-04-16 04:00:00 79 /min Universi ty of [facility] Respiratory rate 2020-04-16 04:00:00 16 /min Univ ersity of [facility] Branch Oxygen saturation in 2020-04-16 04:00:00 96 /min University of Arterial blood by [facility] Pulse oximetry Branch Body temperature 2020-04-16 00:42:00 37.5 Chrissy Univ ersity of [facility] Body weight 2020-04-16 00:42:00 122.471 kg Universi ty of [place] [facility] BMI 2020-04-16 00:42:00 37.66 kg/m2 Universi ty of [facility] Branch Systolic blood 2020-04-16 04:00:00 115 mm[Hg] Univer sity of pressure [facility] Branch Diastolic blood 2020-04-16 04:00:00 68 mm[Hg] Unive rsity of pressure [place] [facility] [place] Heart rate 2020-04-16 04:00:00 79 /min Universi ty of [facility] Branch Respiratory rate 2020-04-16 04:00:00 16 /min Univ ersity of [place] [facility] Oxygen saturation in 2020-04-16 04:00:00 96 /min University of Arterial blood by [facility] Pulse oximetry Branch Body temperature 2020-04-16 00:42:00 37.5 Chrissy Univ ersity of [facility] Body weight 2020-04-16 00:42:00 122.471 kg Universi ty of [place] [facility] BMI 2020-04-16 00:42:00 37.66 kg/m2 Universi ty of [facility] Branch Procedures Procedure Date / Time Performed Performing Clinician Sourfernanda e INCISION AND DRAINAGE 2020-07-25 20:25:48 [facility] OF [facility]IVACY 2020-07-25 17:04:52 Doctor Unassigned, No [facility] [place] [facility] PRACT[facility] Name Medical Branch CONSENT/REFUSAL FOR 2020-07-25 17:04:36 Doctor Unassigned, No [facility] [place] [facility] DIAGNOSIS AND Name Medical Branch TREATMENT [place] DRAIN SKIN ABSCESS 2020-05-21 07:35:00 [facility] BAS[facility] METABOLIC PANEL 2020-05-21 04:49:00 Kamari Salcedo [facility] (NA, K, CL, CO2, Medical Branch GLUCOSE, BUN, CREATININE, CA) CBC WITH DIFF 2020-05-21 04:21:00 Kamari Salcedo [facility] POCT GLUCOSE 2020-04-16 04:28:00 Maria Fernanda Rodrigues [facility] (AUTOMATED) [facility] XR FOOT <3 VW LEFT 2020-04-16 02:04:56 Maria Fernanda Rodrigues [facility] ADC / LCC - DRUG 2020-04-16 01:57:00 Maria Fernanda Rodrigues [facility] SCREEN TRIAGE [facility] HEPATIC FUNCTION 2020-04-16 01:54:00 Maria Fernanda Rodrigues [facility] PANEL ([id number]) Medical Branch (ALB,T.PRO,BILI T,BU/BC,ALT,AST,ALK PHOS) BASIC METABOLIC PANEL 2020-04-16 01:54:00 Maria Fernanda Rodrigues [facility] (NA, K, CL, CO2, Medical Branch GLUCOSE, BUN, CREATININE, CA) CBC WITH DIFF 2020-04-16 01:54:00 Maria Fernanda Rodrigues [facility] N-TERMINAL PRO-BNP 2020-04-16 01:54:00 Maria Fernanda Rodrigues [facility] CONSENT/REFUSAL FOR 2020-04-16 00:32:32 Doctor Unassigned, No [facility] [place] DIAGNOSIS AND Name Medical Branch TREATMENT Encounters Start End Encounter Admission Attending Care Care Encounter Source Date/Time Date/Time Type Type Clinicians Facility Department ID 2020-12-17 2020-12-17 Outpatient [facility] [id number] [facility] 2020-11-17 2020-11-17 [id number] 2020-11-07 2020-11-07 [facility] [id number] 2020-10-25 2020-10-25 Out[facility] [id number] [facility] 2020-07-25 2020-07-25 Emergency [facility] [id number] 12:29:00 16:08:00 Trinidad Sanders [id number] [place] [id number] [place] [id number] [id number] 2020-07-25 2020-07-25 Emergency [facility] [id number] Univers 12:29:00 16:08:00 Trinidad Sanders [id number] ity of [place] 4.2.7.2.686 [facility] [id number] [place] 428474 Branch 2020-07-25 2020-07-25 Emergency X [facility] ERT [id number] Univers 12:29:00 12:29:00 AUBREEO ity of [facility] 2020-07-25 2020-07-25 Orders Doctor JAVIER [id number] 00:00:00 00:00:00 Only UnassignedDISHA [id number] [place] [facility] 4.2.7.2.686 [id number] [id number] 2020-07-25 2020-07-25 Orders Doctor JAVIER [id number] Univers 00:00:00 00:00:00 Only UnassignedDISHA [id number] ity of [place] [facility] 4.2.7.2.686 [place] [facility] [id number] [facility] 009 Branch 2020-05-20 2020-05-21 Emergency Densise, TRAUMA [id number] Univers 22:28:00 03:34:00 Kamari Diaz CENTER [id number] ity of [place] [id number] [facility] 014 [place] 2020-05-20 2020-05-21 Emergency Denisse, TRAUMA [id number] 22:28:00 03:34:00 Kamari CENTER [id number] [id number] [id number] 014 2020-05-20 2020-05-20 Emergency X DENISSE, [facility] ERT [id number] Univers 22:28:00 22:28:00 [facility] 2020-04-15 2020-04-16 Emergency [facility] [id number] Univers 19:43:26 00:05:00 Maria Fernanda Sanders [id number] ity of [place] 4.2.7.2.686 [facility] [place] [id number] [facility] [address] [place] [address] 2020-04-15 2020-04-16 Emergency [facility] [id number] 19:43:26 00:05:00 Maria Fernanda Sanders [id number] [place] [id number] [place] [id number] [facility] 2020-04-15 2020-04-15 Emergency X [facility] ERT [id number] Univers 19:43:26 19:43:26 MARIA FERNANDA [facility] 2020-04-15 2020-04-15 Orders Doctor YAYA [id number] Univers 00:00:00 00:00:00 Only Unassigned, DISHA [id number] ity of [place] [facility] 4.2.7.2.686 Jamarcus as [id number] [facility] 009 [place] 2020-04-15 2020-04-15 Orders Doctor YAYA [id number] 00:00:00 00:00:00 Only Unassigned, DISHA [id number] [place] [facility] 4.2.7.2.686 [id number] [id number] Results Test Description Test Time Test Comments Results Result Sour e Comments Incision and 2020-04-29 Kamari Salcedo MD Un iversity of Drainage 4 ? ? 05/21/2020 ?3:15 [facility] 07:35:00 AMIncision and Branch DrainagePerformed by: Kamari [...] Interpretation Comme nts NA (test code = 3499504457) 135 mmol/L 135-145 K (test code = 8452121388) 4.6 mmol/L 3.5-5 S light hemolysis CL (test code = 9548883056) 103 mmol/L 98-108 CO2 TOTAL (test code = 22 mmol/L 23-31 L 9483381264) AGAP (test code = 2-16 7625799683) BUN (test code = 13 mg/dL 7-23 Slight hemo lysis 3064780866) GLUCOSE (test code = 238 mg/dL 70-110 H 0846629923) CREATININE (test code = 0.61 mg/dL 0.6-1.25 6730230200) CALCIUM (test code = 8.7 mg/dL 8.6-10.6 7117150042) eGFR Calculation mL/min/1.73m2 (Non-) (test code = 2379180151) eGFR Calculation ( mL/min/1.73m2 [facility]) (test code = 1202509593) LUIS ALBERTO (test code = LUIS ALBERTO) [...] tests). Lab Interpretation (test Abnormal code = 73010-4) [facility] WITH [id number] 04:31:00 Test Item Value Reference Range Interpretation Comments WBC (test code = See_Comment H [Automated 5928-2) message] The sy stem which generated this result transmitted reference range : 4.20 - 10.70 10*3/?L. The reference range was not used to interpret this result as normal/abnormal . RBC (test code = See_Comment [Automated 299-8) message] The sy stem which generated this [...] RDW-SD (test code = 42.5 fL 38.5-51.6 00176-1) RDW-CV (test code = 13.0 % 12.1-15.4 788-0) PLT (test code = See_Comment [Automated 777-3) message] The sy stem which generated this result transmitted reference range : 150 - 328 10*3/ ?L. The reference r daniel was not used to interpret this result as normal/abnormal . MPV (test code = 9.5 fL 9.8-13 L 12436-3) NRBC/100 WBC (test See_Comment [Automat ed code = 5520118150) message] The system which generated this result transmitted reference range : 0.0 - 10.0 /100 WBCs. The refer ence range was not u sed to interpret th is result as normal/abnormal . NRBC x10^3 (test code <0.01 See_Comment [Auto mated = 2147052925) message] The s ystem which generated this result transmitted reference range : 10*3/?L. The reference range was not used to interpret this result as normal/abnormal . GRAN MAT (NEUT) % 70.7 % (test code = 770-8) IMM GRAN % (test code 0.30 % = 6971788252) LYMPH % (test code = 19.8 % 736-9) MONO % (test code = 7.8 % 5905-5) EOS % (test code = 0.7 % 713-8) BASO % (test code = 0.7 % 706-2) GRAN MAT x10^3(ANC) 7.61 10*3/uL 1.99-6.95 H (test code = 7420757206) IMM GRAN x10^3 (test 0.03 10*3/uL 0-0.06 code = 2684539490) LYMPH x10^3 (test code 2.13 10*3/uL 1.09-3.23 = 731-0) MONO x10^3 (test code 0.84 10*3/uL 0.36-1.02 = 742-7) EOS x10^3 (test code = 0.07 10*3/uL 0.06-0.53 711-2) BASO x10^3 (test code 0.08 10*3/uL 0.01-0.09 = 704-7) Lab Interpretation Abnormal (test code = 50044-7) [facility] 04:57:00 Test Item Value Reference Range Interpretation Comments POCT GLU (test code = 1298250817) 402 mg/dL 70-110 H Lab Interpretation (test code = Abnormal 03904-4) [facility] [id number] 03:18:00 Test Item Value Reference Range Interpretation Comments NT-proBNP (test code 42 pg/mL See_Comment [Autom ated = 5327268289) message] The system which generated this result transmitted reference range : <=125. The reference range was not used to interpret this result as normal/abnormal . LUIS ALBERTO (test code = LUIS ALBERTO) Biotin has been reported to cause a negative bias, interpret results relative to patient's use of biotin. Lab Interpretation Normal (test code = 96675-8) [facility] Metabolic Panel (NA, K, CL, CO2, GLUCOSE, BUN, CREATININE, CA)2020-04-16 03:13:00 Test Item Value Reference Range Interpretation Comments NA (test code = 134 mmol/L 135-145 L 4262014944) K (test code = 4.4 mmol/L 3.5-5 5869609728) CL (test code = 100 mmol/L 98-108 7056328890) CO2 TOTAL (test code = 24 mmol/L 23-31 6778304279) AGAP (test code = 2-16 9986914715) BUN (test code = 15 mg/dL 7-23 5054904977) GLUCOSE (test code = 455 mg/dL 70-110 HH 5300375330) CREATININE (test code = 0.60 mg/dL 0.6-1.25 2117465996) CALCIUM (test code = 9.6 mg/dL 8.6-10.6 3135809828) eGFR Calculation mL/min/1.73m2 (Non-) (test code = 2022889046) eGFR Calculation mL/min/1.73m2 () (test code = 6595097304) LUIS ALBEROT (test code = LUIS ALBERTO) Association of [...] tests). Lab Interpretation Abnormal (test code = 79362-2) [facility] (ALB, T.PRO, BILI T, BU/BC, ALT, AST, ALK PHOS)2020-04-16 03:10:00 Test Item Value Reference Range Interpretation Comments TOTAL BILI (test code = 9618011031) 0.5 mg/dL 0.1-1.1 BILI UNCON (test code = 6984002379) 0.5 mg/dL 0.1-1.1 BILI CONJ (test code = 5170873897) 0.0 mg/dL 0-0.3 T PROTEIN (test code = 0332205531) 7.5 g/dL 6.3-8.2 ALBUMIN (test code = 4515469796) 4.1 g/dL 3.5-5 ALK PHOS (test code = 3752482905) 104 U/L 34-122 ALTv (test code = 1742-6) 27 U/L 5-50 AST(SGOT) (test code = 9768983592) 32 U/L 13-40 Lab Interpretation (test code = Normal 55474-1) [facility] with [id number] 03:05:00 Test Item Value Reference Range Interpretation Comments WBC (test code = See_Comment [Automated 0468-2) message] The sy stem which generated this result transmitted reference range : 4.20 - 10.70 10*3/?L. The reference range was not used to interpret this result as normal/abnormal . RBC (test code = See_Comment [Automated 049-8) message] The sy stem which generated this [...] RDW-SD (test code = 40.0 fL 38.5-51.6 62813-1) RDW-CV (test code = 12.0 % 12.1-15.4 L 788-0) PLT (test code = See_Comment [Automated 017-3) message] The sy stem which generated this result transmitted reference range : 150 - 328 10*3/ ?L. The reference r daniel was not used to interpret this result as normal/abnormal . MPV (test code = 10.0 fL 9.8-13 06516-4) NRBC/100 WBC (test See_Comment [Automat ed code = 9469208339) message] The system which generated this result transmitted reference range : 0.0 - 10.0 /100 WBCs. The refer ence range was not u sed to interpret th is result as normal/abnormal . NRBC x10^3 (test code <0.01 See_Comment [Auto mated = 7587002014) message] The s ystem which generated this result transmitted reference range : 10*3/?L. The reference range was not used to interpret this result as normal/abnormal . GRAN MAT (NEUT) % 61.8 % (test code = 770-8) IMM GRAN % (test code 0.50 % = 1899143004) LYMPH % (test code = 27.4 % 736-9) MONO % (test code = 7.6 % 5905-5) EOS % (test code = 2.0 % 713-8) BASO % (test code = 0.7 % 706-2) GRAN MAT x10^3(ANC) 4.62 10*3/uL 1.99-6.95 (test code = 4691109383) IMM GRAN x10^3 (test 0.04 10*3/uL 0-0.06 code = 4317823643) LYMPH x10^3 (test code 2.05 10*3/uL 1.09-3.23 = 731-0) MONO x10^3 (test code 0.57 10*3/uL 0.36-1.02 = 742-7) EOS x10^3 (test code = 0.15 10*3/uL 0.06-0.53 711-2) BASO x10^3 (test code 0.05 10*3/uL 0.01-0.09 = 704-7) Lab Interpretation Abnormal (test code = 78631-5) [facility] - DRUG SCREEN [id number] 02:50:00 Test Item Value Reference Range Interpretation Comments BENZO U (test code = Negative Negative 7306145814) JOSE U (test code = Negative Negative 5529358617) AMPHET (test code = Negative Negative 3781656673) THC (test code = Negative Negative 7518855120) METHADONE (test code = Negative Negative 6248664188) Meth U (test code = Negative Negative 8625034407) OPIATES (test code = Presumptive Positive Negative A 2742436613) Cocaine Metabolite (test Negative Negative code = 5036026088) PROPOXY (test code = Negative Negative 5934948632) Tric U (test code = Negative Negative 4386651541) PCP (test code = Negative Negative 5478355007) OXYCOD (test code = Negative Negative 3461027110) LUIS ALBERTO (test code = LUIS ALBERTO) [...] testing). Lab Interpretation (test Abnormal code = 69583-7) [facility] <3 VW [id number] 02:26:07 No radiographic evidence of osteomyelitis.2. Soft [...] in the dorsal pedal and tibialis posteriorarteries. Lamb, Radiant Results Inft User - 04/15/2020 9:27 [...] posteriorarteries.IMPRESSIONNo radiographic evidence of osteomyelitis.2. Soft tissue swellingUnEl Paso Children's Hospital
--- NOTE | 2021-09-26 10:21 | RAD REPORT ---
EXAM DESCRIPTION: RAD - Chest Single View - 09/26/2021 10:14 am CLINICAL HISTORY: Chest pain;Cough;SOB Chest pain. COMPARISON: Chest Single View dated 07/13/2021; Chest Single View dated 04/27/2021; Chest Single View dated 09/06/2016 FINDINGS: Portable technique limits examination quality. The area of infiltrate is suspected in the medial right lung base likely representing a developing pn eumonia. The heart is upper limit normal in size. No displaced fractures. IMPRESSION: Developing pneumonia/ infiltrate in the medial right lung base.
[2021-09-26] MEDS ORDERED: METHYLPREDNISOLONE 125 MG INJ ONE (10:44)
[2021-09-26] MEDS ORDERED: HYDROCODONE/CHLORPHEN 5 ML/OSYR ONE (10:44)
[2021-09-26] MEDS ORDERED: FAMOTIDINE 20 MG/2 ML VIAL IV ONE (10:45)
[2021-09-26] MEDS ORDERED: NA CHLORIDE 0.9% 1,000 ML ONE ×2 (10:45→15:12)
[2021-09-26] MEDS ORDERED: ONDANSETRON 4 MG/2 ML VIAL ONE (10:45)
[2021-09-26 11:06] LABS: Hematocrit 42.6 % (39.6-49.0); RBC Red Blood Cell Count 4.77 M/uL (4.33-5.43)
[2021-09-26 11:09] LABS: Protime INR 1.03
[2021-09-26 11:43] LABS: ALT/SGPT 35 U/L (12-78); AST/SGOT 18 U/L (15-37); Albumin 3.1 g/dL (3.4-5.0); Alkaline Phosphatase 72 U/L (45-117); BUN Blood Urea Nitrogen 23 mg/dL (7-18); Bicarbonate 23 mmol/L (21-32); Bilirubin Direct 0.2 mg/dL (0-0.2); Bilirubin Total 0.6 mg/dL (0.2-1.0); Ferritin 696.6 ng/mL (26-388); Magnesium 1.8 mg/dL (1.8-2.4); NT PRO-BNP 13 pg/mL (<125); Potassium 4.4 mmol/L (3.5-5.1); Protein, Total 7.8 g/dL (6.4-8.2); Sodium Level 128 mmol/L (136-145); Troponin (Emerg Dept Use Only) < 0.02 ng/mL (0.0-0.045)
[2021-09-26 11:44] LABS: Glucose Level 470 mg/dL (74-106)
--- NOTE | 2021-09-26 12:15 | RAD REPORT ---
EXAM DESCRIPTION: CT - Chest For Pe Angio - 09/26/2021 11:59 am CLINICAL HISTORY: Chest pain. Chest pain;Cough COMPARISON: Chest Abdomen Pelvis W Cont dated 07/13/2021 TECHNIQUE: CT angiogram of the pulmonary arteries was performed with MIP. All CT scans are performed using dose optimization technique as appropriate and may include automated exposure control or mA/KV adjustment according to patient size. FINDINGS: No evidence of pulmonary thromboembolism. No acute aortic finding demonstrated. There are numerous ground-glass nodules in both lungs with subtle areas of internal cavitation. This is a new finding since the June 2021 study. No significant pericardial or pleural fluid. Small hiatal hernia. No concerning bony finding. IMPRESSION: No evidence of pulmonary thromboembolism. Multiple bilateral ground-glass pulmonary nodules with internal cavitation evident. The findings are suspicious for septic emboli.
--- NOTE | 2021-09-26 12:39 | EDPHYS ---
Physician Documentation [facility] Name: Adiel Jeff Age: 51 yrs Sex: Male : 1970 Arrival Date: 09/26/2021 Time: 09:48 Bed 16 Private MD: ED Physician Alex Gaming HPI: 09/26 10:05 This 51 yrs old Male presents to ER via EMS with complaints of Shortness Of cp Breath - Patient reports concern for covid symptoms, c/p, sob, intermittent fever, ongoing for 7 days.. 10:05 The patient or guardian reports cough, that is constant, difficulty breathing. cp 10:05 Onset: The symptoms/episode began/occurred 7 day(s) ago. cp 10:05 Associated signs and symptoms: Pertinent positives: chest pain, with cough, with cp breathing, fever, nausea, Pertinent negatives: diarrhea, vomiting. Severity of symptoms: in the emergency department the symptoms are unchanged despite home interventions. Historical: - Allergies: 09:45 No Known Allergies; jg9 - Home Meds: 09:45 Glipizide Oral [Active]; lisinopril Oral [Active]; Metformin Oral [Active]; jg9 - PMHx: 09:45 Anxiety; Diabetes - NIDDM; Hypertension; jg9 - Immunization history:: Client reports receiving the Esau \\T\\ Esau single-dose vaccine. Pneumococcal vaccine is not up to date, Flu vaccine is not up to date. - Social history:: Smoking status: Patient denies any tobacco usage or history of. ROS: 10:10 Constitutional: Positive for body aches, Negative for fever, poor PO intake. cp 10:10 Eyes: Negative for injury, pain, redness, and discharge. cp 10:10 ENT: Negative for drainage from ear(s), ear pain, sore throat, difficulty swallowing, difficulty handling secretions. 10:10 Cardiovascular: Positive for chest pain, with cough, Negative for edema, palpitations. 10:10 Respiratory: Positive for cough, "sounds productive", shortness of breath, at rest. 10:10 Abdomen/GI: Positive for nausea, Negative for abdominal pain, vomiting, diarrhea, constipation. 10:10 Back: Positive for radiated pain. 10:10 : Negative for urinary symptoms. 10:10 Neuro: Negative for altered mental status, headache, syncope, weakness. 10:10 All other systems are negative. Exam: 10:15 Constitutional: The patient appears in no acute distress, alert, awake, cp non-diaphoretic, non-toxic, well developed, well nourished, uncomfortable. 10:15 Head/Face: Normocephalic, atraumatic. cp 10:15 Eyes: Periorbital structures: appear normal, Conjunctiva: normal, no exudate, no injection, Sclera: no appreciated abnormality, Lids and lashes: appear normal, bilaterally. 10:15 ENT: External ear(s): are unremarkable, Nose: is normal, Mouth: Lips: moist, Oral mucosa: pink and intact, moist, Posterior pharynx: Airway: no evidence of obstruction, patent. 10:15 Neck: ROM/movement: is normal, is supple, without pain, no range of motions limitations, no meningismus. 10:15 Chest/axilla: Inspection: normal. 10:15 Cardiovascular: Rate: tachycardic, Rhythm: regular, Edema: is not appreciated, JVD: is not appreciated. 10:15 Respiratory: the patient does not display signs of respiratory distress, Respirations: labored breathing, that is mild, shallow respirations, that is mild, Breath sounds: bronchial sounds, that are moderate, are heard diffusely, stridor, is not appreciated, + upper airway congestion. wheezing: is not appreciated. 10:15 Abdomen/GI: Inspection: obese Bowel sounds: active, all quadrants, Palpation: abdomen is soft and non-tender, in all quadrants. 10:15 Neuro: Orientation: to person, place \\T\\ time. Mentation: is normal, Motor: moves all fours, strength is normal, Sensation: is normal. 10:55 ECG was reviewed by the Attending Physician. cp Vital Signs: 09:45 BP 110 / 80; Pulse 112; Resp 22 S; Pulse Ox 95% on R/A; Weight 111.13 kg; Height 6 ft. jg9 0 in. (182.88 cm) (R); 10:20 BP 108 / 66; Pulse 102; Resp 18; Temp 98.6(O); Pulse Ox 95% on R/A; jg9 11:00 BP 101 / 69; Pulse 101; Resp 18 S; Pulse Ox 93% ; jg9 12:45 BP 124 / 88; Pulse 88; Resp 24; Pulse Ox 93% on R/A; jg9 13:30 BP 103 / 47; Pulse 92; Resp 20 S; Pulse Ox 95% on 1 lpm NC; jg9 09:45 Body Mass Index 33.23 (111.13 kg, 182.88 cm) j9 MDM: 09:50 Patient medically screened. vita 11:00 Differential diagnosis: bronchitis, flu, URI, sepsis, pulmonary embolism, pneumonia. cp 12:30 Data reviewed: vital signs, nurses notes, lab test result(s), EKG, radiologic studies, cp CT scan, plain films. 12:30 Physician consultation: Beny Kathleen MD was called at 12:30, was contacted at 12:30, cp regarding consult, patient's condition, would like admission per Dr. Stepan Meek would like medications started, Levaquin, Vancomycin and Lovenox. 09/26 09:59 Order name: Basic Metabolic Panel; Complete Time: 11:45 cp 09/26 11:45 Interpretation: Normal except: NA 128; CL 95; GLUC 470; BUN 23; CRE 1.39; GFR 53. cp 09/26 09:59 Order name: CBC with Diff; Complete Time: 11:45 cp 09/26 09:59 Order name: LFT's; Complete Time: 11:45 cp 09/26 09:59 Order name: Magnesium; Complete Time: 11:45 cp 09/26 09:59 Order name: NT PRO-BNP; Complete Time: 11:45 cp 09/26 09:59 Order name: PT-INR; Complete Time: 11:45 cp 09/26 09:59 Order name: Troponin (emerg Dept Use Only); Complete Time: 11:45 cp 09/26 09:59 Order name: COVID-19/FLU A+B (Document "Date of Onset" if Symptomatic) cp 09/26 09:59 Order name: CRP; Complete Time: 11:45 cp 09/26 09:59 Order name: Ferritin; Complete Time: 11:45 cp 09/26 12:24 Order name: Lactate cp 09/26 12:24 Order name: Procalcitonin cp 09/26 12:24 Order name: Blood Culture Adult (2) cp 09/26 12:25 Order name: Lactate EDMS 09/26 09:59 Order name: XRAY Chest (1 view); Complete Time: 11:01 cp 09/26 11:01 Interpretation: Report reviewed. 09/26 12:25 Order name: Procalcitonin EDLA 09/26 16:53 Order name: Glucose, Ancillary Testing EDLA 09/26 17:19 Order name: Lactate Sepsis 2 HR Follow-up EDLA 09/26 17:26 Order name: Glucose Level EDLA 09/27 02:29 Order name: Glucose, Ancillary Testing EDLA 09/27 04:21 Order name: Glucose, Ancillary Testing EDLA 09/27 05:14 Order name: CBC with Automated Diff EDMS 09/27 05:50 Order name: Comprehensive Metabolic Panel EDLA 09/27 05:50 Order name: Phosphorus EDLA 09/27 05:50 Order name: Lipid Profile EDLA 09/27 05:50 Order name: Magnesium EDLA 09/27 08:02 Order name: Glucose, Ancillary Testing EDLA 09/27 11:49 Order name: Glucose, Ancillary Testing EDLA 09/27 16:12 Order name: Glucose, Ancillary Testing EDLA 09/27 19:50 Order name: Glucose, Ancillary Testing EDLA 09/26 09:59 Order name: EKG; Complete Time: 10:00 cp 09/26 09:59 Order name: Cardiac monitoring; Complete Time: 11:09 cp 09/26 09:59 Order name: EKG - Nurse/Tech; Complete Time: 11:09 cp 09/26 09:59 Order name: IV Saline Lock; Complete Time: 11:09 cp 09/26 09:59 Order name: Labs collected and sent; Complete Time: 11:09 cp 09/26 09:59 Order name: O2 Per Protocol; Complete Time: 12:51 cp 09/26 09:59 Order name: O2 Sat Monitoring; Complete Time: 11:09 cp 09/26 11:45 Order name: CT Chest For PE Angio; Complete Time: 12:21 09/27 10:38 Order name: RAD EDMS EC:55 Rate is 104 beats/min. Rhythm is regular. FL interval is normal. QRS interval is cp normal. QT interval is normal. T waves are Inverted in lead aVR. Interpreted by me. Reviewed by me. Administered Medications: 11:00 Drug: NS 0.9% 500 ml Route: IV; Rate: bolus; Site: left forearm; jg9 11:45 Follow up: IV Intake: 500ml jg9 11:01 Drug: SOLU-Medrol (methylPrednisoLONE) 125 mg Route: IVP; Site: left forearm; jg9 11:43 Follow up: Response: No adverse reaction jg9 11:04 Drug: Pepcid (famotidine) 20 mg Route: IVP; Site: left forearm; jg9 11:43 Follow up: Response: No adverse reaction jg9 11:06 Drug: Tussionex Pennkinetic ER (chlorpheniramine-hydrocodone) Suspension 5 ml Route: PO;jg9 11:44 Follow up: Response: No adverse reaction jg9 11:06 Drug: Zofran (Ondansetron) 4 mg Route: IVP; Site: left forearm; jg9 11:44 Follow up: Response: No adverse reaction jg9 11:52 Drug: NS 0.9% 500 ml Route: IV; Rate: 125 ml/hr; Site: left forearm; jg9 12:50 Drug: Insulin Regular Human 10 units {Co-Signature: vg1 (Barbara Asif RN).} Route: jg9 IVP; Site: left forearm; 13:29 Follow up: Response: No adverse reaction jg9 13:29 Drug: LevaQUIN (levofloxacin) 750 mg Volume: 150 ml; Route: IVPB; Infused Over: 90 jg9 mins; Site: left forearm; 13:31 Drug: Dilaudid (HYDROmorphone) 1 mg Route: IVP; Site: left forearm; jg9 14:16 Follow up: Response: No adverse reaction; Marked relief of symptoms; Pain is decreased jg9 20:00 Drug: vancoMYCIN 1.5 grams Route: IVPB; Rate: calculated rate; Site: left antecubital; jg9 20:00 Drug: Lovenox (enoxaparin) 1 mg/kg Route: Sub-Q; Site: abdomen; jg9 Disposition: 09/28 09:06 Co-signature as Attending Physician, Alex Gaming MD I agree with the assessment and vita plan of care. Disposition Summary: 09/26/21 12:38 Hospitalization Ordered Hospitalization Status: Inpatient Admission cp Provider: Stepan Meek cp Condition: Fair cp Problem: new cp Symptoms: have improved cp Bed/Room Type: Standard cp Location: Telemetry/MedSurg (Inpatient)(09/27/21 20:04) mw Room Assignment: 408(09/27/21 20:04) mw Diagnosis - Septic pulmonary embolism without acute cor pulmonale cp Forms: - Medication Reconciliation Form cp - SBAR form cp Signatures: Dispatcher [employer] EDMS Janis Blandon RN RN Alex Rodriguez MD MD cha Page, Corey, PA PA cp Gilmore, Jennifer jg9 Barbara Asif RN vg1 Corrections: (The following items were deleted from the chart) 09/26 21:50 12:38 Telemetry/MedSurg (Inpatient) cp mw 21:50 12:38 cp mw 09/27 20:04 09/26 21:50 [facility] ER HOLD mw mw 09/27 20:04 09/26 21:50 ERHOLD- mw mw
--- NOTE | 2021-09-26 12:39 | ER ---
Nurse's Notes [facility] Name: Adiel Jeff Age: 51 yrs Sex: Male : 1970 Arrival Date: 09/26/2021 Time: 09:48 Bed 16 Private MD: Diagnosis: Septic pulmonary embolism without acute cor pulmonale Presentation: 09/26 09:45 Chief complaint: EMS states: COVID like symptoms x7 days, chest pain and sob, patient jg9 received JJ covid vaccine, no booster, no flu vaccine. Coronavirus screen: Vaccine status: Patient reports receiving the 1st dose of the Covid vaccine. Esau and Esau, no booster received Client denies travel out of the [place] in the last 14 days. difficulty breathing, shortness of breath. Ebola Screen: Patient negative for fever greater than or equal to 101.5 degrees Fahrenheit, and additional compatible Ebola Virus Disease symptoms Patient denies exposure to infectious person. Patient denies travel to an Ebola-affected area in the 21 days before illness onset. Initial Sepsis Screen: Does the patient meet any 2 criteria? No. Patient's initial sepsis screen is negative. Risk Assessment: Do you want to hurt yourself or someone else? Patient reports no desire to harm self or others. Onset of symptoms was September 19, 2021. 09:45 Method Of Arrival: EMS: [facility] 9 09:45 Acuity: DURAN 3 j9 09:45 Initial Sepsis Screen: Does the patient have a suspected source of infection? No. jg9 Patient's initial sepsis screen is negative. Triage Assessment: 10:34 General: Appears uncomfortable, Behavior is calm. Pain: Complains of pain in chest. jg9 Respiratory: Reports shortness of breath since 09/19/21. Historical: - Allergies: 09:45 No Known Allergies; jg9 - Home Meds: 09:45 Glipizide Oral [Active]; lisinopril Oral [Active]; Metformin Oral [Active]; jg9 - PMHx: 09:45 Anxiety; Diabetes - NIDDM; Hypertension; jg9 - Immunization history:: Client reports receiving the Esau \T\ Esau single-dose vaccine. Pneumococcal vaccine is not up to date, Flu vaccine is not up to date. - Social history:: Smoking status: Patient denies any tobacco usage or history of. Screenin:34 Abuse screen: Denies threats or abuse. Denies injuries from another. Nutritional jg9 screening: No deficits noted. Tuberculosis screening: No symptoms or risk factors identified. Fall Risk None identified. Vital Signs: 09:45 BP 110 / 80; Pulse 112; Resp 22 S; Pulse Ox 95% on R/A; Weight 111.13 kg; Height 6 ft. jg9 0 in. (182.88 cm) (R); 10:20 BP 108 / 66; Pulse 102; Resp 18; Temp 98.6(O); Pulse Ox 95% on R/A; jg9 11:00 BP 101 / 69; Pulse 101; Resp 18 S; Pulse Ox 93% ; jg9 12:45 BP 124 / 88; Pulse 88; Resp 24; Pulse Ox 93% on R/A; jg9 13:30 BP 103 / 47; Pulse 92; Resp 20 S; Pulse Ox 95% on 1 lpm NC; jg9 09:45 Body Mass Index 33.23 (111.13 kg, 182.88 cm) jg9 ED Course: 09:45 Arm band placed on right wrist. jg9 09:45 Patient has correct armband on for positive identification. Bed in low position. Call jg9 light in reach. Side rails up X 1. 09:48 Patient arrived in ED. jg9 09:49 Alex Grover PA is PHCP. cp 09:49 Alex Gaming MD is Attending Physician. cp 10:14 XRAY Chest (1 view) In Process Unspecified. EDMS 10:18 Piper Sumner is Primary Nurse. jg9 10:28 Triage completed. jg9 10:55 Inserted saline lock: 22 gauge in left forearm, using aseptic technique. jg9 11:58 CT Chest For PE Angio In Process Unspecified. EDMS 12:37 Stepan Meek is Hospitalizing Provider. cp 13:29 Procalcitonin Sent. jg9 13:29 Lactate Sent. jg9 Administered Medications: 11:00 Drug: NS 0.9% 500 ml Route: IV; Rate: bolus; Site: left forearm; jg9 11:45 Follow up: IV Intake: 500ml jg9 11:01 Drug: SOLU-Medrol (methylPrednisoLONE) 125 mg Route: IVP; Site: left forearm; jg9 11:43 Follow up: Response: No adverse reaction jg9 11:04 Drug: Pepcid (famotidine) 20 mg Route: IVP; Site: left forearm; jg9 11:43 Follow up: Response: No adverse reaction jg9 11:06 Drug: Tussionex Pennkinetic ER (chlorpheniramine-hydrocodone) Suspension 5 ml Route: PO;jg9 11:44 Follow up: Response: No adverse reaction jg9 11:06 Drug: Zofran (Ondansetron) 4 mg Route: IVP; Site: left forearm; jg9 11:44 Follow up: Response: No adverse reaction jg9 11:52 Drug: NS 0.9% 500 ml Route: IV; Rate: 125 ml/hr; Site: left forearm; jg9 12:50 Drug: Insulin Regular Human 10 units {Co-Signature: vg1 (Barbara Asif RN).} Route: jg9 IVP; Site: left forearm; 13:29 Follow up: Response: No adverse reaction jg9 13:29 Drug: LevaQUIN (levofloxacin) 750 mg Volume: 150 ml; Route: IVPB; Infused Over: 90 jg9 mins; Site: left forearm; 13:31 Drug: Dilaudid (HYDROmorphone) 1 mg Route: IVP; Site: left forearm; jg9 14:16 Follow up: Response: No adverse reaction; Marked relief of symptoms; Pain is decreased jg9 20:00 Drug: vancoMYCIN 1.5 grams Route: IVPB; Rate: calculated rate; Site: left antecubital; jg9 20:00 Drug: Lovenox (enoxaparin) 1 mg/kg Route: Sub-Q; Site: abdomen; jg9 Intake: 11:45 IV: 500ml; Total: 500ml. jg9 Outcome: 12:38 Decision to Hospitalize by Provider. wendy 09/27 22:48 Patient left the ED. mw Signatures: Dispatcher [employer] EDMS Janis Blandon RN RN mw Page, Corey, PA PA cp Gilmore, Jennifer jg9 Barbara Asif RN vg1 Corrections: (The following items were deleted from the chart) 09/26 10:34 10:20 BP 108 / 66; Pulse 102bpm; Resp 18bpm; Pulse Ox 95% RA; jg9 jg9
[2021-09-26] MEDS ORDERED: INSULIN -REGULAR HUMAN 50 UNIT/0.5 ML ML ONE ×2 (12:40→17:38)
[2021-09-26] MEDS ORDERED: Levofloxacin 750mg IV 750 MG/150 ML BAG IV ONE (12:55)
[2021-09-26] MEDS ORDERED: HYDROMORPHONE HCL 1 MG/ML INJ ONE (13:14)
[2021-09-26] MEDS ORDERED: VANCOMYCIN 1.5 GM in NA CHLORIDE 0.9% 500 ML IVPB ONE (14:00)
--- NOTE | 2021-09-26 14:12 | P.HP ---
Certification for Inpatient Patient admitted to: Inpatient With expected LOS: >2 Midnights Practitioner: I am a practitioner with admitting privileges, knowledge of patient current condition, hospital course, and medical plan of care. Services: Services provided to patient in accordance with Admission requirements found in Title 42 Section 412.3 of the Code of Federal Regulations Patient History Date of Service: 09/26/21 Reason for admission: Shortness of breath and cough History of Present Illness: 51-year-old gentleman with a history of diabetes mellitus, on insulin and Me tformin presented to the emergency department with a complaint of cough, fever and progressive shortness of breath of about 1 week duration. Patient reports associated nausea and vomiting, pleuritic chest pain. He denies any abdominal pain but endorses diarrhea. CT chest done in the emergency department report groundglass pulmonary nodules with areas of cavitation suggestive of septic emboli. Patient has no leukocytosis, and no fever recorded. He does not meet criteria for sepsis. Pulmonary-Dr. Kathleen informed who recommended IV Levaquin, vancomycin and anticoagulation. Patient admitted for further management. Allergies No Known Allergies Allergy (Verified 11/15/18 13:56) Home Medications: Metformin ER [Glucophage ER*] 1,000 mg PO DAILY 11/15/18 glipiZIDE [Glucotrol] 5 mg PO BID 11/15/18 lisinopriL [Lisinopril] 10 mg PO DAILY 11/15/18 Codeine/APAP [Tylenol W/Codeine #3 tab] 1 tab PO Q6HP PRN #12 tab 11/23/18 Doxycycline Hyclate 100 mg PO Q12HR #28 tablet 11/23/18 Insulin Glargine Human [Lantus*] 15 units SQ BEDTIME #1 ml 11/23/18 Medihoney [Medihoney Woundcare Gel*] 1 appl TOP DAILY #1 tube 11/23/18 levoFLOXacin [Levaquin] 750 mg PO DAILY #14 tab 11/23/18 - Past Medical/Surgical History Diabetic: Yes -: Diabetes mellitus type 2, NIDDM -: Hypertension - Family History Mother -: Diabetes Notes: HPN - Social History Smoking Status: Never smoker Alcohol use: No CD- Drugs: No Caffeine use: No Review of Systems Other: Patient denied any headache, no visual disturbance. He denies any limb weakness. Except as documented, all other systems reviewed and negative. Physical Examination - Physical Exam General: Alert, In no apparent distress, Oriented x3 HEENT: Normocephalic, PERRLA, Mucous membr. moist/pink, Sclerae nonicteric Neck: Supple, JVD not distended Respiratory: Crackles/rales (Bilateral scattered crackles) Cardiovascular: No edema, Regular rate/rhythm, Normal S1 S2 Capillary refill: <2 Seconds Gastrointestinal: Normal bowel sounds, Soft and benign, Non-distended, No tenderness Musculoskeletal: No swelling, No tenderness Integumentary: No rashes, No erythema Neurological: Normal speech, Normal strength at 5/5 x4 extr, Cranial nerves 3-12 intact Lymphatics: No axilla or inguinal lymphadenopathy - Studies Laboratory Data (last 24 hrs) 09/26/21 10:54: PT 11.8, INR 1.03 09/26/21 10:54: WBC 6.10, Hgb 14.5, Hct 42.6, Plt Count 189 09/26/21 10:54: Sodium 128 L, Potassium 4.4, BUN 23 H, Creatinine 1.39 H, Glucose 470 H*, Magnesium 1.8, Total Bilirubin 0.6, AST 18, ALT 35, Alkaline Phosphatase 72 Assessment and Plan - Problems (Diagnosis) (1) Pneumonia Current Visit: Yes Status: Acute (2) Diabetes mellitus Onset Date: 11/16/18 Current Visit: No Status: Chronic Qualifiers: Diabetes mellitus type: type 2 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 There is a concern for septic emboli in the lungs. Blood cultures obtained in the ED. follow blood cultures. Start aggressive antibiotic therapy-IV Levaquin and vancomycin. Consult to pulmonary. Dr. Mobley is informed. Full dose Lovenox anticoagulation per pulmonary recommendation. Aggressive blood sugar management-Lantus insulin and insulin sliding scale. Pseudohyponatremia secondary to hyperglycemia Monitor CBC and blood chemistry. - Advance Directives Does patient have a Living Will: No Does patient have a Durable POA for Healthcare: No
[2021-09-26 14:35] LABS: SARS-COV-2 RT PCR POSITIVE (NEGATIVE)
[2021-09-26] MEDS ORDERED: ALBUTEROL 2.5 MG/3 ML NEB SOL NEB PRN (14:46)
[2021-09-26] MEDS ORDERED: ONDANSETRON 4 MG/2 ML VIAL IV PRN (14:46)
[2021-09-26] MEDS ORDERED: Enoxaparin 120 MG/0.8 ML SYR SQ ONE (15:00)
[2021-09-26] MEDS: NA CHLORIDE 0.9% 1,000 ML IV SCH (15:12)
[2021-09-26] MEDS: INSULIN GLARGINE 100 UNIT/ML SQ ONE ×2 (17:34→17:49)
[2021-09-26] MEDS: INSULIN -REGULAR HUMAN 50 UNIT/0.5 ML ML SQ SCH (17:49)
[2021-09-26] MEDS ORDERED: INSULIN GLARGINE 100 UNIT/ML SQ ONE (18:00)
[2021-09-26] MEDS: ACETAMINOPHEN 500 MG TAB PO PRN (18:16)
[2021-09-26] MEDS ORDERED: ACETAMINOPHEN 500 MG TAB ONE (18:17)
[2021-09-26] MEDS ORDERED: VANCOMYCIN 1.25 GM in NA CHLORIDE 0.9% 250 ML IVPB ONE (21:00)
[2021-09-26] MEDS ORDERED: INSULIN GLARGINE 100 UNIT/ML SQ SCH (21:00)
[2021-09-26] MEDS ORDERED: MAGNESIUM SULFATE 1 gm IVPB 1 GM/100 ML BAG IV ONE (21:00)
[2021-09-27] MEDS ORDERED: MORPHINE 4 MG/ML SYR ONE (00:06)
[2021-09-27] MEDS: MORPHINE 2 MG/ML SYR IV PRN ×4 (00:10→17:53)
[2021-09-27] MEDS ORDERED: INSULIN -REGULAR HUMAN 50 UNIT/0.5 ML ML ONE ×5 (00:19→19:59)
[2021-09-27] MEDS: NA CHLORIDE 0.9% 1,000 ML IV SCH ×2 (00:46→10:51)
[2021-09-27] MEDS ORDERED: ACETAMINOPHEN 325 MG/SUPP PR ONE (04:56)
[2021-09-27] MEDS ORDERED: MORPHINE 2 MG/ML SYR ONE ×3 (04:59→17:29)
[2021-09-27] MEDS: INSULIN -REGULAR HUMAN 50 UNIT/0.5 ML ML SQ SCH ×5 (05:00→20:10)
[2021-09-27 05:01] LABS: Absolute Lymphocytes (CBC) 1.2 K/uL (0.7-4.9); Hematocrit 42.2 % (39.6-49.0); MPV 8.2 fL (7.6-11.3); RBC Red Blood Cell Count 4.74 M/uL (4.33-5.43)
[2021-09-27 05:49] LABS: Albumin 3.1 g/dL (3.4-5.0); Bilirubin Total 0.4 mg/dL (0.2-1.0); Magnesium 2.1 mg/dL (1.8-2.4); Phosphorus 3.1 mg/dL (2.5-4.9); Potassium 4.1 mmol/L (3.5-5.1); Protein, Total 8.4 g/dL (6.4-8.2)
[2021-09-27] MEDS ORDERED: Enoxaparin 120 MG/0.8 ML SYR SQ SCH (09:00)
[2021-09-27] MEDS ORDERED: INFLUENZA VACCINE (for 6+ mo) 0.5 ML DOSE IMVAC ONE (09:00)
[2021-09-27] MEDS: Levofloxacin 750mg IV 750 MG/150 ML BAG IV SCH (09:00)
[2021-09-27] MEDS ORDERED: VANCOMYCIN 2 GM in NA CHLORIDE 0.9% 500 ML IVPB SCH (09:00)
[2021-09-27] MEDS ORDERED: Levofloxacin 750mg IV 750 MG/150 ML BAG IV ONE (09:01)
[2021-09-27] MEDS ORDERED: guaiFENesin 100 MG/5 ML UCUP ONE (09:56)
[2021-09-27] MEDS ORDERED: NPH (HUMAN) 100 UNITS/ML INSULIN SQ ONE (09:56)
[2021-09-27] MEDS: GUAIFENESIN/CODEINE 5ML UCUP PO PRN ×2 (09:59→17:53)
[2021-09-27] MEDS ORDERED: GUAIFENESIN/CODEINE 5ML UCUP ONE ×2 (10:00→17:30)
--- NOTE | 2021-09-27 10:37 | RAD REPORT ---
EXAM DESCRIPTION: [facility] Single View09/27/2021 10:13 am CLINICAL HISTORY: Chest pain COMPARISON: September 26, 2021 FINDINGS: [id number] small bilateral patchy lung opacities are unchanged The heart is borderline enlarged
[2021-09-27] MEDS ORDERED: PROMETHAZINE-DM 5 ML OSYR PO PRN (11:02)
--- NOTE | 2021-09-27 11:04 | P.CNS ---
Date of Consult: 09/27/21 Reason for Consult: Coronavirus pneumonia Chief Complaint: Shortness of breath and cough History of Present Illness: Patient is 51 years of age admitted with severe cough shortness of breath been vaccinated with Esau & Esau planing of coughing spells he has been sick for about a week Allergies No Known Allergies Allergy (Verified 11/15/18 13:56) Home Medications: Metformin ER [Glucophage ER*] 1,000 mg PO BID 11/15/18 glipiZIDE [Glucotrol] 5 mg PO BID 11/15/18 lisinopriL [Lisinopril] 20 mg PO DAILY 11/15/18 - Past Medical/Surgical History Diabetic: Yes -: Diabetes mellitus type 2, NIDDM -: Hypertension - Family History Mother Medical History: Diabetes Notes: HPN - Social History Smoking Status: Unknown if ever smoked Alcohol use: No CD- Drugs: No Caffeine use: No Place of Residence: Home Review of Systems General: Weakness Respiratory: Cough, Shortness of Breath Physical Examination Temp Pulse Resp BP Pulse Ox 98.2 F 74 18 105/81 98 09/27/21 04:00 09/27/21 04:00 09/27/21 05:11 09/27/21 04:00 09/27/21 04:00 General: Alert, Mild distress Laboratory Data (last 24 hrs) 09/26/21 10:54: PT 11.8, INR 1.03 09/26/21 10:54: WBC 6.10, Hgb 14.5, Hct 42.6, Plt Count 189 09/26/21 10:54: Sodium 128 L, Potassium 4.4, BUN 23 H, Creatinine 1.39 H, Glucose 470 H*, Magnesium 1.8, Total Bilirubin 0.6, AST 18, ALT 35, Alkaline Phosphatase 72 - Problems (1) Pneumonia due to coronavirus disease 2019 Current Visit: Yes Status: Acute Plan: Patient signs symptoms consistent with coronavirus pneumonia his ferritin and CRP are elevated patient nebulized Pulmicort blood cultures are negative plan to discharge doubt septic emboli blood sugars are very elevated is also been having some GI symptoms changed to half-normal saline renal insufficiency room air saturation is normal plan to discharge tomorrow also believe tolerating a diet on Dulera or Advair in addition to some cough medication
[2021-09-27] MEDS: BUDESONIDE 0.5 MG/2 ML NEB NEB SCH ×2 (11:40→20:10)
[2021-09-27] MEDS ORDERED: NACHLORIDE 0.45% 1,000 ML IV ONE (11:53)
[2021-09-27] MEDS: NACHLORIDE 0.45% 1,000 ML IV SCH (11:53)
--- NOTE | 2021-09-27 13:58 | P.PN ---
Subjective Date of Service: 09/27/21 Chief Complaint: Shortness of breath and cough Reporting cough with pleuritic chest pain. He is afebrile Physical Examination - Vital Signs Temperature: 98.2 F Blood Pressure: 109/60 Pulse: 117 Respirations: 18 Pulse Ox (%): 97 - Physical Exam General: In no apparent distress, Oriented x3 HEENT: Mucous membr. 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 Pulmonology input appreciated. Blood cultures: No growth to date. Continue IV antibiotics. Patient tested positive for Covid. He received Esau & Esau shot in November 2020 and due for a booster. Pneumonia likely secondary to Covid. Patient started on Eliquis per Dr. Kathelen. Aggressive blood sugar management-Lantus insulin and insulin sliding scale. Pseudohyponatremia secondary to hyperglycemia. Hyponatremia improved. Monitor CBC and blood chemistry.
[2021-09-27] MEDS ORDERED: INSULIN GLARGINE 100 UNIT/ML SQ ONE (15:49)
[2021-09-27] MEDS: VANCOMYCIN 2 GM in NA CHLORIDE 0.9% 500 ML IVPB SCH (15:51)
[2021-09-27] MEDS: INSULIN GLARGINE 100 UNIT/ML SQ SCH (15:51)
[2021-09-27] MEDS ORDERED: APIXABAN 5 MG TABLET ONE (19:59)
[2021-09-27] MEDS: APIXABAN 5 MG TABLET PO SCH (20:09)
[2021-09-27] MEDS ORDERED: BUDESONIDE 0.25 MG/2 ML NEB ONE (20:11)
[2021-09-28] MEDS: NACHLORIDE 0.45% 1,000 ML IV SCH ×2 (00:26→14:40)
[2021-09-28] MEDS: MORPHINE 2 MG/ML SYR IV PRN ×4 (00:38→18:13)
[2021-09-28 05:47] LABS: Absolute Lymphocytes (CBC) 1.4 K/uL (0.7-4.9); Hematocrit 35.2 % (39.6-49.0); Lymphocytes % 17.7 % (15.3-44.8); MPV 7.8 fL (7.6-11.3); RBC Red Blood Cell Count 3.95 M/uL (4.33-5.43)
[2021-09-28 06:07] LABS: ALT/SGPT 24 U/L (12-78); AST/SGOT 15 U/L (15-37); Albumin 2.4 g/dL (3.4-5.0); Alkaline Phosphatase 66 U/L (45-117); BUN Blood Urea Nitrogen 12 mg/dL (7-18); Bicarbonate 24 mmol/L (21-32); Bilirubin Total 0.5 mg/dL (0.2-1.0); Glucose Level 206 mg/dL (74-106); Potassium 3.5 mmol/L (3.5-5.1); Protein, Total 6.6 g/dL (6.4-8.2); Sodium Level 134 mmol/L (136-145)
[2021-09-28] MEDS: BUDESONIDE 0.5 MG/2 ML NEB NEB SCH ×2 (06:10→20:00)
--- NOTE | 2021-09-28 07:33 | RAD REPORT ---
EXAM DESCRIPTION: RAD - Chest Single View - 09/28/2021 6:51 am CLINICAL HISTORY: penumonia COMPARISON: September 27 chest film, September 26 CT chest TECHNIQUE: AP portable chest image was obtained 09/28/2021 6:51 am . FINDINGS: Lung volumes are low compared to prior imaging. Patchy airspace opacities in the right ramila g field are not clearly different. There is worsening airspace opacification in the mid and lower lef t lung field even when adjusting for the more shallow inspiration. Heart and vasculature are normal. No measurable pleural effusion and no pneumothorax. No acute bony abnormality seen. No acute aortic findings suspected. IMPRESSION: Worsening pneumonia changes in the mid and lower left lung field.
[2021-09-28] MEDS: GUAIFENESIN/CODEINE 5ML UCUP PO PRN ×2 (08:37→21:05)
[2021-09-28] MEDS: APIXABAN 5 MG TABLET PO SCH ×2 (08:37→21:03)
[2021-09-28] MEDS: Levofloxacin 750mg IV 750 MG/150 ML BAG IV SCH (08:46)
[2021-09-28] MEDS: INSULIN -REGULAR HUMAN 50 UNIT/0.5 ML ML SQ SCH ×4 (08:46→21:04)
[2021-09-28] MEDS: INSULIN GLARGINE 100 UNIT/ML SQ SCH (08:46)
[2021-09-28] MEDS ORDERED: POTASSIUM 25 MEQ EFFERV TAB PO ONE (09:00)
[2021-09-28] MEDS: VANCOMYCIN 2 GM in NA CHLORIDE 0.9% 500 ML IVPB SCH (10:26)
--- NOTE | 2021-09-28 10:36 | P.PN ---
Subjective Date of Service: 09/28/21 Chief Complaint: Shortness of breath and cough No change still complaining of severe coughing spells patient started on nebulized budesonide slightly better eating and drinking Review of Systems General: Weakness Respiratory: Cough, Shortness of Breath Physical Examination - Vital Signs Temperature: 99.8 F Blood Pressure: 126/61 Pulse: 91 Respirations: 14 Pulse Ox (%): 95 - Physical Exam General: Alert, Oriented x3, Moderate distress Assessment & Plan - Problems (Diagnosis) (1) Pneumonia due to coronavirus disease 2019 Current Visit: Yes Status: Acute Plan: Patient is still very symptomatic add steroids continue with Pulmicort room air saturation satisfactory labs reviewed change to p.o. levofloxacin his blood cultures are all negative DC IV vancomycin white count is normal
--- NOTE | 2021-09-28 12:45 | P.PN ---
Subjective Date of Service: 09/28/21 Chief Complaint: Shortness of breath and cough Patient coughing continuously. Cough is nonproductive. He reports shortness of breath and pleuritic chest pain. He is tolerating room air with good oxygen saturation. Physical Examination - Vital Signs Temperature: 99.8 F Blood Pressure: 126/61 Pulse: 91 Respirations: 14 Pulse Ox (%): 95 - Physical Exam General: Alert, In no apparent distress, Oriented x3 HEENT: Mucous membr. moist/pink Neck: JVD not distended Respiratory: Normal air movement, Crackles/rales (Faint crackles bilaterally) Cardiovascular: No edema, Regular rate/rhythm, Normal S1 S2 Gastrointestinal: Soft and benign, Non-distended, No tenderness Musculoskeletal: No swelling Integumentary: No rashes Neurological: Normal strength at 5/5 x4 extr Assessment And Plan - Current Problems (Diagnosis) (1) Pneumonia Current Visit: Yes Status: Acute (2) Diabetes mellitus Onset Date: 11/16/18 Current Visit: No Status: Chronic Qualifiers: Diabetes mellitus type: type 2 Diabetes mellitus nursing home insulin use: with nursing home use Diabetes mellitus complication status: with hyperglycemia Qualified Code(s): E11.65 - Type 2 diabetes mellitus with hyperglycemia; Z79.4 - [facility] (current) use of insulin - Plan Doubt septic emboli in the lungs. Blood cultures: no growth. Chest x-ray demonstrates worsening infiltrates likely secondary to Covid pneumonia. Pulmonology input appreciated. Antibiotics switched to oral Levaquin. Vancomycin discontinued. He received Esau & Esau shot in November 2020 and due for a booster. Continue Eliquis per Dr. Kathleen. Aggressive blood sugar management-Lantus insulin and insulin sliding scale. Pseudohyponatremia secondary to hyperglycemia. Hyponatremia improved. Monitor CBC and blood chemistry.
[2021-09-28] MEDS: dexAMETHasone 10 MG/ML VIAL IV SCH ×2 (13:11→17:36)
[2021-09-28] MEDS: ASCORBIC ACID 500 MG TABLET PO SCH (21:04)
[2021-09-29] MEDS: dexAMETHasone 10 MG/ML VIAL IV SCH ×3 (00:46→16:52)
[2021-09-29] MEDS: MORPHINE 2 MG/ML SYR IV PRN ×4 (01:57→20:57)
[2021-09-29] MEDS: NACHLORIDE 0.45% 1,000 ML IV SCH (04:00)
[2021-09-29 06:08] LABS: Absolute Lymphocytes (CBC) 0.5 K/uL (0.7-4.9); Hematocrit 38.9 % (39.6-49.0); Lymphocytes % 9.2 % (15.3-44.8); RBC Red Blood Cell Count 4.34 M/uL (4.33-5.43)
[2021-09-29] MEDS: GUAIFENESIN/CODEINE 5ML UCUP PO PRN (07:45)
[2021-09-29] MEDS: INSULIN -REGULAR HUMAN 50 UNIT/0.5 ML ML SQ SCH ×4 (07:46→20:14)
[2021-09-29] MEDS: INSULIN GLARGINE 100 UNIT/ML SQ SCH (07:49)
[2021-09-29] MEDS: APIXABAN 5 MG TABLET PO SCH ×2 (07:49→20:14)
[2021-09-29] MEDS: levoFLOXacin 500 MG TAB PO SCH (07:50)
[2021-09-29] MEDS: ZINC SULFATE 220 MG CAP PO SCH (07:50)
[2021-09-29] MEDS: VITAMIN D 1000 UNIT TAB PO SCH (07:50)
[2021-09-29] MEDS: ASCORBIC ACID 500 MG TABLET PO SCH ×2 (07:50→20:14)
[2021-09-29] MEDS: BUDESONIDE 0.5 MG/2 ML NEB NEB SCH ×2 (08:00→20:55)
[2021-09-29 09:07] LABS: Blood Morphology Comment NOT SEEN (NOT SEEN); Platelet Estimate ADEQ; White Blood Cell Scan OK (OK)
[2021-09-29] MEDS ORDERED: INSULIN GLARGINE 100 UNIT/ML SQ ONE (11:57)
--- NOTE | 2021-09-29 11:59 | P.PN ---
Subjective Date of Service: 09/29/21 Chief Complaint: Shortness of breath and cough Patient states he feels much better today. He is currently hypoxic on room air and currently dependent on 2 L of oxygen by nasal cannula. Physical Examination - Vital Signs Temperature: 97.4 F Blood Pressure: 126/62 Pulse: 78 Respirations: 20 Pulse Ox (%): 94 - Physical Exam General: Alert, In no apparent distress, Oriented x3 HEENT: Mucous membr. moist/pink Neck: JVD not distended Respiratory: Other (Nonlabored breathing) Cardiovascular: No edema, Regular rate/rhythm, Normal S1 S2 Gastrointestinal: Soft and benign, Non-distended, No tenderness Musculoskeletal: No swelling Integumentary: No rashes, No cyanosis Neurological: Normal strength at 5/5 x4 extr Assessment And Plan - Current Problems (Diagnosis) (1) Pneumonia Current Visit: Yes Status: Acute (2) Diabetes mellitus Onset Date: 11/16/18 Current Visit: No Status: Chronic Qualifiers: Diabetes mellitus type: type 2 Diabetes mellitus intermediate manager insulin use: with longterm use Diabetes mellitus complication status: with hyperglycemia Qualified Code(s): E11.65 - Type 2 diabetes mellitus with hyperglycemia; 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 Chest x-ray demonstrates worsening infiltrates likely secondary to Covid pneumonia. Pulmonology input appreciated. Patient started on IV dexamethasone and steroid inhalers. Continue oral Levaquin. Vancomycin discontinued. He received Esau & Esau shot in November 2020 and due for a booster. Continue Eliquis per Dr. Kathleen. Aggressive blood sugar management-continue insulin sliding scale. Titrating Lantus insulin. Pseudohyponatremia secondary to hyperglycemia. Hyponatremia improved. Monitor CBC and blood chemistry. Monitor inflammatory markers.
[2021-09-29] MEDS ORDERED: HYDRALAZINE HCL 20 MG/ML VIAL IV PRN (19:40)
[2021-09-29] MEDS: lisinopriL 10 MG TAB PO SCH (20:13)
[2021-09-30] MEDS: dexAMETHasone 10 MG/ML VIAL IV SCH ×2 (00:23→07:46)
[2021-09-30] MEDS: GUAIFENESIN/CODEINE 5ML UCUP PO PRN ×3 (02:31→22:13)
[2021-09-30 04:26] LABS: Absolute Lymphocytes (CBC) 0.5 K/uL (0.7-4.9); Hematocrit 35.1 % (39.6-49.0); Lymphocytes % 7.8 % (15.3-44.8); MPV 7.9 fL (7.6-11.3); RBC Red Blood Cell Count 3.96 M/uL (4.33-5.43)
[2021-09-30 04:48] LABS: BUN Blood Urea Nitrogen 23 mg/dL (7-18); Bicarbonate 24 mmol/L (21-32); Potassium 3.9 mmol/L (3.5-5.1); Sodium Level 134 mmol/L (136-145)
[2021-09-30 04:49] LABS: Glucose Level 417 mg/dL (74-106)
[2021-09-30 05:34] VITALS: BMI 33.0
[2021-09-30] MEDS: INSULIN GLARGINE 100 UNIT/ML SQ SCH (06:16)
[2021-09-30] MEDS: BUDESONIDE 0.5 MG/2 ML NEB NEB SCH ×2 (06:41→08:00)
[2021-09-30] MEDS: INSULIN -REGULAR HUMAN 50 UNIT/0.5 ML ML SQ SCH ×4 (07:45→20:35)
[2021-09-30] MEDS: VITAMIN D 1000 UNIT TAB PO SCH (07:45)
[2021-09-30] MEDS: ZINC SULFATE 220 MG CAP PO SCH (07:46)
[2021-09-30] MEDS: APIXABAN 5 MG TABLET PO SCH ×2 (07:46→20:38)
[2021-09-30] MEDS: lisinopriL 10 MG TAB PO SCH (07:46)
[2021-09-30] MEDS: ASCORBIC ACID 500 MG TABLET PO SCH ×2 (07:46→20:36)
[2021-09-30] MEDS: levoFLOXacin 500 MG TAB PO SCH (07:46)
[2021-09-30] MEDS: MORPHINE 2 MG/ML SYR IV PRN ×2 (08:53→20:38)
--- NOTE | 2021-09-30 11:33 | P.PN ---
Subjective Date of Service: 09/30/21 Chief Complaint: Respiratory failure from coronavirus Patient still complaining of cough is ready to go home is minimal nasal cannula oxygen still having chest discomfort Review of Systems General: Weakness Respiratory: Shortness of Breath Physical Examination - Vital Signs Temperature: 97.2 F Blood Pressure: 150/67 Pulse: 81 Respirations: 18 Pulse Ox (%): 92 - Physical Exam General: Oriented x3 Assessment & Plan - Problems (Diagnosis) (1) Pneumonia due to coronavirus disease 2019 Current Visit: Yes Status: Acute Plan: Patient admitted with pneumonia due to coronavirus stable to be discharged home continue with antibiotics low-dose steroids set her Advair inhaler for the cough blood sugars elevated due to steroid follow-up with me in 2 weeks chest x-ray shows more haziness on the left side
[2021-09-30] MEDS: DULERA 200/5 (MOMETASONE/FORMOTEROL) INHALER IH SCH ×2 (13:13→20:38)
--- NOTE | 2021-09-30 13:23 | P.PN ---
Subjective Date of Service: 09/30/21 Chief Complaint: Respiratory failure from coronavirus Patient has no new complain. He is maintained on 2 L of oxygen by nasal cannula. Blood sugar significantly elevated. Physical Examination - Vital Signs Temperature: 98.4 F Blood Pressure: 119/71 Pulse: 86 Respirations: 18 Pulse Ox (%): 93 - Physical Exam General: Alert, In no apparent distress, Oriented x3 HEENT: Mucous membr. 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 Chest x-ray demonstrates worsening infiltrates likely secondary to Covid pneumonia. Pulmonology is following. Patient transitioned from IV dexamethasone to oral prednisone. Continue budesonide inhaler. Continue oral Levaquin. Vancomycin discontinued. He received Esau & Esau shot in November 2020 and due for a booster. Continue Eliquis per Dr. Kathleen. He has steroid-induced hyperglycemia. Aggressive blood sugar management-continue insulin sliding scale. Titrating Lantus insulin. Pseudohyponatremia secondary to hyperglycemia. Hyponatremia improved. Monitor CBC and blood chemistry. Home oxygen evaluation.
[2021-09-30] MEDS: predniSONE 20 MG TAB PO SCH (20:37)
[2021-09-30] MEDS ORDERED: predniSONE 20 MG TAB PO SCH (21:00)
[2021-10-01 03:56] LABS: Absolute Lymphocytes (CBC) 1.1 K/uL (0.7-4.9); Hematocrit 35.1 % (39.6-49.0); MPV 7.5 fL (7.6-11.3); RBC Red Blood Cell Count 3.95 M/uL (4.33-5.43)
[2021-10-01 04:11] LABS: BUN Blood Urea Nitrogen 19 mg/dL (7-18); Bicarbonate 24 mmol/L (21-32); Ferritin 550.6 ng/mL (26-388); Glucose Level 355 mg/dL (74-106); Potassium 3.7 mmol/L (3.5-5.1); Sodium Level 137 mmol/L (136-145)
[2021-10-01] MEDS: GUAIFENESIN/CODEINE 5ML UCUP PO PRN ×2 (04:23→17:00)
--- NOTE | 2021-10-01 06:17 | P.PN ---
Date of Service: 10/01/21
[2021-10-01] MEDS: levoFLOXacin 500 MG TAB PO SCH (07:42)
[2021-10-01] MEDS: VITAMIN D 1000 UNIT TAB PO SCH (07:42)
[2021-10-01] MEDS: predniSONE 20 MG TAB PO SCH (07:43)
[2021-10-01] MEDS: ZINC SULFATE 220 MG CAP PO SCH (07:43)
[2021-10-01] MEDS: ASCORBIC ACID 500 MG TABLET PO SCH (07:43)
[2021-10-01] MEDS: APIXABAN 5 MG TABLET PO SCH (07:44)
[2021-10-01] MEDS: INSULIN GLARGINE 100 UNIT/ML SQ SCH (08:05)
[2021-10-01] MEDS: INSULIN -REGULAR HUMAN 50 UNIT/0.5 ML ML SQ SCH ×3 (08:05→16:37)
[2021-10-01] MEDS: lisinopriL 10 MG TAB PO SCH (08:06)
[2021-10-01] MEDS: DULERA 200/5 (MOMETASONE/FORMOTEROL) INHALER IH SCH (08:15)
[2021-10-01] MEDS ORDERED: POTASSIUM 25 MEQ EFFERV TAB PO ONE (09:00)
[2021-10-01] MEDS: MORPHINE 2 MG/ML SYR IV PRN (09:14)
[2021-10-01] MEDS ORDERED: GLUCAGON 1 MG/VIAL IM PRN (10:06)
[2021-10-01] MEDS ORDERED: D50W 25 GM/50 ML SYRINGE IV PRN (10:06)
[2021-10-01] MEDS ORDERED: INSULIN -REGULAR HUMAN 50 UNIT/0.5 ML ML IV ONE (10:15)
[2021-10-01 13:32] VITALS: O2SAT 96
[2021-10-01 16:50] VITALS: BP 124/61; TEMP 98.2
[2021-10-01] MEDS: ACETAMINOPHEN 500 MG TAB PO PRN (17:00)
--- NOTE | 2021-10-01 22:01 | P.DS ---
Admission Date: 09/26/21 Discharge Date: 10/01/21 Disposition: ROUTINE DISCHARGE Discharge Condition: FAIR Reason for Admission: Respiratory failure from coronavirus Consultations: Pulmonology - Dr. Kathleen Procedures: Problem list Acute hypoxemic respiratory failure secondary to COVID-19 Pneumonia DM2, insulin-dependent steroid-induced hyperglycemia HTN Brief History of Present Illness: 51-year-old gentleman with a history of diabetes mellitus, on insulin and Metformin presented to the emergency department with a complaint of cough, fever and progressive shortness of breath of about 1 week duration. Patient reports associated nausea and vomiting, pleuritic chest pain. He denies any abdominal pain but endorses diarrhea. CT chest done in the emergency department report groundglass pulmonary nodules with areas of cavitation suggestive of septic emboli. Patient has no leukocytosis, and no fever recorded. He does not meet criteria for sepsis. Pulmonary-Dr. Kathleen informed who recommended IV Levaquin, vancomycin and anticoagulation. Patient admitted for further management. Hospital Course: Patient treated with steroids, vitamin supplementation, and oxygen supplementation per COVID protocol. He had gradual improvement of his symptoms and was discharged home with home O2. Pulmonology was consulted and recommended treatment with Dulera and Levaquin. Patient was noted to have severely elevated hyperglycemia up to 600 on admission. A1c: 13.1 Patient was discharged with new prescription for insulin Follow up with PCP in 3-5 days Follow up with Pulmonology in ~2 weeks. Vital Signs/Physical Exam: Temp Pulse Resp BP Pulse Ox 98.2 F 73 16 124/61 95 10/01/21 16:00 10/01/21 16:00 10/01/21 16:00 10/01/21 16:00 10/01/21 16:00 General: Alert, In no apparent distress, Oriented x3 HEENT: Sclerae nonicteric Neck: Supple Respiratory: Other (nonlabored respirations on 2L NC) Cardiovascular: No edema, Regular rate/rhythm Integumentary: No rashes Neurological: Normal speech, Normal affect Laboratory Data at Discharge: WBC 7.20 K/uL (4.3-10.9) 10/01/21 03:28 Hgb 12.1 g/dL (13.6-17.9) L 10/01/21 03:28 Hct 35.1 % (39.6-49.0) L 10/01/21 03:28 Plt Count 269 K/uL (152-406) 10/01/21 03:28 PT 11.8 SECONDS (9.5-12.5) 09/26/21 10:54 INR 1.03 09/26/21 10:54 Sodium 137 mmol/L (136-145) 10/01/21 03:28 Potassium 3.7 mmol/L (3.5-5.1) 10/01/21 03:28 BUN 19 mg/dL (7-18) H 10/01/21 03:28 Creatinine 0.78 mg/dL (0.55-1.3) 10/01/21 03:28 Glucose 355 mg/dL (74-106) H 10/01/21 03:28 Phosphorus 3.1 mg/dL (2.5-4.9) 09/27/21 04:42 Magnesium 2.1 mg/dL (1.8-2.4) 09/27/21 04:42 Total Bilirubin 0.5 mg/dL (0.2-1.0) 09/28/21 05:10 AST 15 U/L (15-37) 09/28/21 05:10 ALT 24 U/L (12-78) 09/28/21 05:10 Alkaline Phosphatase 66 U/L (45-117) 09/28/21 05:10 Triglycerides 271 mg/dL (<150) H 09/27/21 04:42 Cholesterol 156 mg/dL (<200) 09/27/21 04:42 HDL Cholesterol 34 mg/dL (40-60) L 09/27/21 04:42 Cholesterol/HDL Ratio 4.59 09/27/21 04:42 Home Medications: lisinopriL [Lisinopril] 20 mg PO DAILY 11/15/18 Insulin Glargine,Hum.rec.anlog [Lantus Solostar] 50 unit SQ DAILY 30 Days #15 ml 10/01/21 Mometasone/Formoterol [Dulera 200 Mcg/5 Mcg Inhaler] 2 puff IH BID inhaler 10/01/21 levoFLOXacin [Levaquin*] 500 mg PO DAILY 6 Days #6 tab 10/01/21 predniSONE [Deltasone*] 10 mg PO BID 10 Days #20 tab 10/01/21 New Medications: predniSONE [Deltasone*] 10 mg PO BID 10 Days #20 tab Insulin Glargine,Hum.rec.anlog [Lantus Solostar] 50 unit SQ DAILY 30 Days #15 ml levoFLOXacin [Levaquin*] 500 mg PO DAILY 6 Days #6 tab Physician Discharge Instructions: You were found to have COVID-19 pneumonia and significantly elevated blood glucose levels. You are discharged with steroids, oxygen, and insulin. Your hemoglobin A1C was 13.1 Check your blood glucose levels at home. Follow up with your PCP in 3-4 days. Follow up with Dr. Kathleen in ~2 weeks. Diet: ADA Activity: Ad naye Followup: Beny Kathleen MD [ACTIVE - CAN ADMIT] - NONE,NONE [Primary Care Provider] - Time spent managing pt's care (in minutes): 45
== END 2021-10-01 20:00 | disposition home or self-care (01) | DRG 177 ==
LOC: ER 09:37 → ERHOLD 13:57 → 4TH 09-27 21:27
PROVIDERS: ADMIT Internal Medicine; ATTEND Hospitalist
DX: U07.1 COVID-19 (principal); J12.82 Pneumonia due to coronavirus disease 2019; J96.01 Acute respiratory failure with hypoxia; E87.1 Hypo-osmolality and hyponatremia; I10 Essential (primary) hypertension; E11.65 Type 2 diabetes mellitus with hyperglycemia; T38.0X5A Adverse effect of glucocorticoids and synthetic analogues, initial encounter; Z79.84 Long term (current) use of oral hypoglycemic drugs; Z79.899 Other long term (current) drug therapy; Z79.4 Long term (current) use of insulin; Z79.52 Long term (current) use of systemic steroids
CPT/HCPCS: 0240U; 36415; 71045; 71275; 80048; 80053; 80061; 80076; 80202; 82728; 82947; 83036; 83605; 83735; 83880; 84100; 84132; 84145; 84484; 85025; 85610; 86140; 87040; 93005; 94640; 96372; 99284; J0460; J1100; J1170; J1650; J1815; J2270; J2405; J2930; J3370; J7030; J7040; J7050; J7512; J7606; Q9967

== ENCOUNTER 2022-02-16 18:13 | Emergency (ER) | payer OTHER ==
--- OUTSIDE RECORDS SUMMARY | 2022-02-16 18:17 | XMS REPORT | Continuity of Care Document ---
:1970 Author Organization [facility] t Address [address] [id number] Care Team Providers Name Role Phone Fazal Caceresh Dwayne Attending Clinician Unavailable Jim ALMAGUER, F Attending Clinician JIM F Attending Clinician Unavailable Doctor Unassigned, Name Attending Clinician Unavailable Denisse SIEGEL, E Attending Clinician Kiara SALCEDO Attending Clinician Unavailable Adolfo GUSMAN, G Attending Clinician Christin MATA Attending Clinician Unavailable Payers Payer Name Policy Type Policy Number Effective Date Expiration Date S ource Problems Condition Condition Condition Status Onset Resolution Last Treating Co mments Source Name Details Category Date Date Treatment Clinician Date Diabetic Diabetic Disease Active Unive rs foot foot 5-22 ity of infection infection 00:00: [address] Osteomyeli Osteomyeli Disease Active 2019- U nivers tis of tis of 5-21 ity of foot foot 00:: [address] Osteomyeli Osteomyeli Disease Active 2019-0 U nivers tis tis 3-09 ity of 00:00: [address] Obesity Obesity Disease Active 2019-0 Univers (BMI (BMI 3-09 ity of 30-39.9) 30-39.9) 00:00: [address] Allergies, Adverse Reactions, Alerts Allergy Allergy Status Severity Reaction(s) Onset Inactive Treating Comm ents Source Name Type Date Date Clinician NO KNOWN Drug Active Univers ALLERGIE Class ity of S [facility] Social History Social Habit Start Date Stop Date Quantity Comments Source Exposure to Not sure [facility] SARS-CoV-2 [facility] (event) Branch Sex Assigned At [facility] y of [facility] Tobacco use and 2020-07-25 2020-07-25 Never used Universit y of exposure 00:00:00 00:00:00 [facility] Alcohol intake 2020-07-25 2020-07-25 Current [facility] 00:00:00 00:00:00 non-drinker of [facility] alcohol [place] (finding) Smoking Status Start Date Stop Date Source Never smoker General acute hospital Medications Ordered Filled Start Stop Current Ordering Indication Dosage Frequency Signature Comments Components Source Medication Medication Date Date Medication? Clinician (SIG) Name Name clindamycin 2019-09 No 600mg 600 mg, U nivers (CLEOCIN) 07-25 Intramuscu ity of injection 21:30: 20:51 lar, [place]CE, [place] 600 mg 00 :00 1 dose, Medical [facility] Branch 07/25/20 at 1630, JIMENA
Re [...] 1 Jamarc[place] as mg 00 :00 dose, [facility] Medical 07/25/20 Branch at 1630, JIMENA HYDROcodone 2019-09- No 1{tbl} 1 tablet, Univers -acetaminop 07-25 Oral, ity of hen (NORCO) 19:45: 19:14 [place]CE[place] 10-325 mg 00 :00 dose, [facility] Medic al tablet 1 07/25/20 Branch tablet at 1445, Routine traMADoL 50 2019-09 Yes [id number] 50mg Take 1 Univ ers mg tablet 0- tablet by ity o f 00:00: mouth [place] 00 every 6 Medical (six) Branch hours as needed for Pain (scale 7-10). Indication s: acute pain clindamycin 2019- 2020- No [id number] 300mg Take 1 Univers 300 mg 0-28 11-05 capsule by ity of capsule 00:00: 05:59 mouth 3 [place] 00 :00 (three) Medical times Branch daily for 7 days. clindamycin 2019-09 2020- No [id number] 150mg Take 1 Univers 150 mg 0-28 11-05 capsule by ity of capsule 00:00: 05:59 mouth 3 [place] 00 :00 (three) Medical times Branch daily for 7 days. morpHINE 2020-0 2020- No 4mg 4 mg, Slow Un osvaldo injection 4 - 08-24 IV Push, ity of mg 08:30: 07:32 ONCE, 1 [place] 00 :00 dose, [facility] Medical 05/21/20 at Branch 0330, STAT doxycycline 2020-0 2020- No 100mg 100 mg, U nivers hyclate 05-21 08-24 Oral, ity of (Vibramycin 06:15: 05:36 [place]CE[place] capsule 00 :00 dose, Mon Medic al 100 mg 05/21/20 at Branch 0115, JIMENA
Re ason for Anti-Infec tive: Documented Infection< br>Documen nanci Infection Site: Skin / Soft Tissue
Duration of Therapy: 10 days morpHINE 2019-0 2020- No 4mg 4 mg, Slow Un osvaldo injection 4 - 08-24 IV Push, ity of mg 05:45: 04:50 ONCE, 1 [place] 00 :00 dose, [facility] 05/21/20 at Branch 0045, STAT sodium 2020-0 Yes Topical, Univers hypochlorit 8-24 BID, First it y of e 0.125 % 04:45: dose on [place] (DAKIN'S 00 Sun Medical SOLUTION) 05/20/20 at [facility] ch solution 2345, Until Discontinu ed, JIMENA doxycycline 2020-0 Yes [id number] 100mg Take 1 Univers hyclate 100 8-24 capsule by it y of mg capsule 00:00: mouth 2 [place] 00 (two) Medical times Branch daily. doxycycline 2020-0 Yes [id number] 100mg Take 1 Univers hyclate 100 8-24 capsule by it y of mg capsule 00:00: mouth [place] 00 (two) Medical times Branch daily. doxycycline 2020-0 Yes [id number] 100mg Take 1 Univers hyclate 100 8-24 capsule by it y of mg capsule 00:00: mouth [place] 00 (two) Medical times Branch daily. acetaminoph 2019- No [id number] 1{tbl} Take 1 U nivers en-codeine 8-21 06- tablet by ity of (TYLENOL-CO 00:00: 04:59 [place] DEINE #3[place] 00 :00 every 4 Medical 300-30 mg (four) Branch tablet hours as needed for Pain (scale 7-10) for up to 7 days. Indication s: acute pain insulin 2019- No 10U 10 Units, Univ ers regular 04-16 Subcutaneo ity o f human 05:15: 04:26 , ONCE, [place] (HUMULIN R) 00 :00 1 dose, Medic al injection [facility] Branch 10 Units 04/16/20 at 0015, [...] Sun Med ical tablet 2 04/15/20 at [facility] h tablet 2200, JIMENA ketorolac 2019- No 30mg 30 mg, Unive rs (TORADOL) 04-16 Slow IV ity of injection 03:00: 02:04 Push, [place] 30 mg 00 :00 ONCE, 1 Medical dose, Sun Branch 04/15/20 at 2200, Routine
receiving team member approving Restricted medication : MARIA FERNANDA MATA glipiZIDE 2020- No [id number] 10mg Take 1 U nivers 10 mg 04-15 tablet by ity of tablet 00:00: 04:59 mouth 2 [place] 00 :00 (two) Medical times Branch daily before breakfast and dinner for 30 days. lisinopril 2019- No [id number] 5mg Take 1 Univers 5 mg tablet 04-15 tablet by it y of 00:00: 04:59 mouth 2 [place] 00 :00 (two) Medical times Branch daily for 30 days. atorvastati 2019- No [id number] 40mg Take 1 Univers n 40 mg 04-15 tablet by ity of tablet 00:00: 04:59 mouth at [place] 00 :00 bedtime Medical for 30 Branch days. metFORMIN 2019- No [id number] 1000mg Take 1 Univers 1,000 mg 04-15 tablet by ity o f tablet 00:00: 04:59 mouth 2 [place] 00 :00 (two) Medical times Branch daily with meals for 30 days. gabapentin 2019- No [id number] 200mg Take 2 Univers 100 mg 04-15 capsules ity of capsule 00:00: 04:59 by mouth 3 [place] 00 :00 (three) Medical times Branch daily for 30 days. traMADol 50 2019- No [id number] 50mg Take 1 Uni vers mg tablet 04-15 tablet by ity of 00:00: 04:59 mouth [place] 00 :00 every 6 Medical (six) Branch hours as needed for Pain (scale 4-6) for up to 7 days. Indication s: acute pain escitalopra Yes [id number] 10mg Take 1 Univers m oxalate 5-30 tablet by ity o f 10 mg 00:00: mouth [place] tablet 00 daily. Medical Branch escitalopra Yes [id number] 10mg Take 1 Univers m oxalate 5-30 tablet by ity o f 10 mg 00:00: mouth [place] tablet 00 daily. Medical Branch escitalopra Yes [id number] 10mg Take 1 Univers m oxalate 5-30 tablet by ity o f 10 mg 00:00: mouth [place] tablet 00 daily. Medical Branch escitalopra Yes [id number] 10mg Take 1 Univers m oxalate 5-30 tablet by ity o f 10 mg 00:00: mouth [place] tablet 00 daily. Medical Branch escitalopra Yes [id number] 10mg Take 1 Univers m oxalate 5-30 tablet by ity o f 10 mg 00:00: mouth [place] tablet 00 daily. Medical Branch gabapentin 2019-0 Yes [id number] 200mg Take 2 Univers 100 mg 5-29 capsules ity of capsule 00:00: by mouth 3 a s (three) Medical times Branch daily. metFORMIN 2019-0 Yes [id number] 1000mg Take 1 Univers 1,000 mg 5-29 tablet by ity of tablet 00:00: mouth 2 (two) Medical times Branch daily with meals. glipiZIDE 2019-0 Yes [id number] 10mg Take 1 U nivers 10 mg 5-29 tablet by ity of tablet 00:00: mouth 3 00 (three) Medical times Branch daily before meals. atorvastati 2019-0 Yes [id number] 40mg Take 1 Univers n 40 mg 5-29 tablet by ity of tablet 00:00: mouth at 00 bedtime. Medical Branch lisinopril 2019-0 Yes [id number] 5mg Take 0.5 Univers 10 mg 5-29 tablets by ity of tablet 00:00: mouth 2 (two) Medical times Branch daily. cephALEXin 2019-0 Yes [id number] 500mg Take 1 Univers 500 mg 5-29 capsule by ity of capsule 00:00: mouth 2 (two) Medical times Branch daily. gabapentin 2019-0 Yes [id number] 200mg Take 2 Univers 100 mg 5-29 capsules ity of capsule 00:00: by mouth 3 (three) Medical times Branch daily. metFORMIN 2019-0 Yes [id number] 1000mg Take 1 Univers 1,000 mg 5-29 tablet by ity of tablet 00:00: mouth 2 (two) Medical times Branch daily with meals. glipiZIDE 2019-0 Yes [id number] 10mg Take 1 U nivers 10 mg 5-29 tablet by ity of tablet 00:00: mouth 3 (three) Medical times Branch daily before meals. atorvastati 2019-0 Yes [id number] 40mg Take 1 Univers n 40 mg 5-29 tablet by ity of tablet 00:00: mouth at 00 bedtime. Medical Branch lisinopril 2019-0 Yes [id number] 5mg Take 0.5 Univers 10 mg 5-29 tablets by ity of tablet 00:00: mouth 2 (two) Medical times Branch daily. cephALEXin 2019-0 Yes [id number] 500mg Take 1 Univers 500 mg 5-29 capsule by ity of capsule 00:00: mouth 2 (two) Medical times Branch daily. gabapentin 2019-0 Yes [id number] 200mg Take 2 Univers 100 mg 5-29 capsules ity of capsule 00:00: by mouth 3 a s (three) Medical times Branch daily. metFORMIN 2019-0 Yes [id number] 1000mg Take 1 Univers 1,000 mg 5-29 tablet by ity of tablet 00:00: mouth 2 (two) Medical times Branch daily with meals. glipiZIDE 2019-0 Yes [id number] 10mg Take 1 U nivers 10 mg 5-29 tablet by ity of tablet 00:00: mouth 3 (three) Medical times Branch daily before meals. atorvastati 2019-0 Yes [id number] 40mg Take 1 Univers n 40 mg 5-29 tablet by ity of tablet 00:00: mouth at bedtime. Medical Branch lisinopril 2019-0 Yes [id number] 5mg Take 0.5 Univers 10 mg 5-29 tablets by ity of tablet 00:00: mouth 2 (two) Medical times Branch daily. cephALEXin 2019-0 Yes [id number] 500mg Take 1 Univers 500 mg 5-29 capsule by ity of capsule 00:00: mouth (two) Medical times Branch daily. gabapentin 2019-0 Yes [id number] 200mg Take 2 Univers 100 mg 5-29 capsules ity of capsule 00:00: by mouth 3 (three) Medical times Branch daily. metFORMIN 2019-0 Yes [id number] 1000mg Take 1 Univers 1,000 mg 5-29 tablet by ity of tablet 00:00: mouth 2 (two) Medical times Branch daily with meals. glipiZIDE 2019-0 Yes [id number] 10mg Take 1 U nivers 10 mg 5-29 tablet by ity of tablet 00:00: mouth 3 (three) Medical times Branch daily before meals. atorvastati 2019-0 Yes [id number] 40mg Take 1 Univers n 40 mg 5-29 tablet by ity of tablet 00:00: mouth at 00 bedtime. Medical Branch lisinopril 2019-0 Yes [id number] 5mg Take 0.5 Univers 10 mg 5-29 tablets by ity of tablet 00:00: mouth 2 (two) Medical times Branch daily. cephALEXin 2019-0 Yes [id number] 500mg Take 1 Univers 500 mg 5-29 capsule by ity of capsule 00:00: mouth 2 00 (two) Medical times Branch daily. gabapentin 2019- Yes [id number] 200mg Take 2 Univers 100 mg 5-29 capsules ity of capsule 00:00: by mouth 3 [place] 00 (three) Medical times Branch daily. metFORMIN 2019- Yes [id number] 1000mg Take 1 Univers 1,000 mg 5-29 tablet by ity of tablet 00:00: mouth 2 (two) Medical times Branch daily with meals. glipiZIDE 2019- Yes [id number] 10mg Take 1 U nivers 10 mg 5-29 tablet by ity of tablet 00:00: mouth 3 00 (three) Medical times Branch daily before meals. atorvastati 2018- Yes [id number] 40mg Take 1 Univers n 40 mg 5-29 tablet by ity of tablet 00:00: mouth at [place] 00 bedtime. Medical Branch lisinopril 2018- Yes [id number] 5mg Take 0.5 Univers 10 mg 5-29 tablets by ity of tablet 00:00: mouth 2 (two) Medical times Branch daily. cephALEXin 2019- Yes [id number] 500mg Take 1 Univers 500 mg 5-29 capsule by ity of capsule 00:00: mouth 2 (two) Medical times Branch daily. acetaminoph Yes [id number] 2{tbl} Take 2 Univers en-codeine 3-12 tablets by ity of (TYLENOL-CO 00:00: mouth 3 [place] DEINE #3) 00 (three) Medical 300-30 mg times Branch tablet daily as needed for Pain (scale 4-6) or Pain (scale 7-10). acetaminoph 2020- No [id number] 2{tbl} Take 2 Univers en-codeine 3-12 07-19 tablets by it y of (TYLENOL-CO 00:00: 00:00 mouth 3 [place] DE[place] #3[place] 00 :00 (three) Medical 300-30 mg times Branch tablet daily as needed for Pain (scale 4-6) or Pain (scale 7-10). Immunizations Ordered Filled Immunization Date Status Comments [facility] e Immunization Name Name Pneumococcal 2018-12-07 Completed [place] o f Polysaccharide, 00:00:00 [place] Med ical PPSV23 (PNEUMOVAX) Branch Pneumococcal 2018-12-07 Completed University o f Polysaccharide, 00:00:00 [place] Med ical PPSV23 (PNEUMOVAX) Branch Pneumococcal 2018-12-07 Completed University o f Polysaccharide, 00:00:00 [place] Med ical PPSV23 (PNEUMOVAX) Branch Pneumococcal 2018-12-07 Completed University o f Polysaccharide, 00:00:00 [place] Med ical PPSV23 (PNEUMOVAX) Branch Pneumococcal 2018-12-07 Completed University o f Polysaccharide, 00:00:00 [place] Med ical PPSV23 (PNEUMOVAX) Branch Influenza Virus 2018-11-25 Completed Universit y of Vaccine 00:00:00 [facility] Influenza Virus 2018-11-25 Completed Universit y of Vaccine 00:00:00 [facility] Influenza Virus 2018-11-25 Completed Universit y of Vaccine 00:00:00 [facility] Influenza Virus 2018-11-25 Completed Universit y of Vaccine 00:00:00 [facility] Influenza Virus 2018-11-25 Completed Universit y of Vaccine 00:00:00 [facility] Vital Signs Vital Name Observation Time Observation Value Comments Source Systolic blood 2020-07-25 20:50:17 116 mm[Hg] Univer sity of pressure [facility] Diastolic blood 2020-07-25 20:50:17 73 mm[Hg] Unive rsity of [facility] Heart rate 2020-07-25 20:50:17 85 /min [facility] Respiratory rate 2020-07-25 20:50:17 16 /min [facility] Oxygen saturation in 2020-07-25 20:50:17 96 /min [facility] Arterial blood by [facility] Pulse oximetry Branch Body temperature 2020-07-25 17:27:00 36.67 Chrissy [facility] Body weight 2020-07-25 17:27:00 120.203 kg [facility] BMI 2020-07-25 17:27:00 36.96 kg/m2 [facility] Systolic blood 2020-07-25 20:50:17 116 mm[Hg] Univer sity of pressure [facility] Diastolic blood 2020-07-25 20:50:17 73 mm[Hg] Unive rsity of [facility] Heart rate 2020-07-25 20:50:17 85 /min Universi ty of [place] [facility] Respiratory rate 2020-07-25 20:50:17 16 /min Univ ersity of [place] [facility] Oxygen saturation in 2020-07-25 20:50:17 96 /min University of Arterial blood by [place] [facility] Pulse oximetry Branch Body temperature 2020-07-25 17:27:00 36.67 Chrissy Univ ersity of [place] [facility] Body weight 2020-07-25 17:27:00 120.203 kg Universi ty of [place] [facility] BMI 2020-07-25 17:27:00 36.96 kg/m2 Universi ty of [place] [facility] Systolic blood 2020-05-21 08:00:00 111 mm[Hg] Univer sity of pressure [place] [facility] Diastolic blood 2020-05-21 08:00:00 70 mm[Hg] Unive rsity of pressure [place] [facility] Heart rate 2020-05-21 08:00:00 88 /min Universi ty of [place] [facility] Respiratory rate 2020-05-21 08:00:00 18 /min Univ ersity of [place] [facility] Oxygen saturation in 2020-05-21 08:00:00 98 /min University of Arterial blood by [facility] ariel Pulse oximetry Branch Body temperature 2020-05-21 03:36:20 36.78 Chrissy Univ ersity of [place] [facility] BMI 2020-05-21 03:19:00 36.96 kg/m2 Universi ty of [place] [facility] Body weight 2020-05-21 03:19:00 120.203 kg Universi ty of [place] [facility] Systolic blood 2020-05-21 08:00:00 111 mm[Hg] Univer sity of pressure [place] [facility] Diastolic blood 2020-05-21 08:00:00 70 mm[Hg] Unive rsity of pressure [place] [facility] Heart rate 2020-05-21 08:00:00 88 /min Universi ty of [place] [facility] Respiratory rate 2020-05-21 08:00:00 18 /min Univ ersity of [place] [facility] Oxygen saturation in 2020-05-21 08:00:00 98 /min University of Arterial blood by [place] [facility] Pulse oximetry Branch Body temperature 2020-05-21 03:36:20 36.78 Chrissy Univ ersity of [place] [facility] BMI 2020-05-21 03:19:00 36.96 kg/m2 Universi ty of [place] [facility] Body weight 2020-05-21 03:19:00 120.203 kg Universi ty of [facility] Systolic blood 2020-04-16 04:00:00 115 mm[Hg] Univer sity of pressure [facility] Branch Diastolic blood 2020-04-16 04:00:00 68 mm[Hg] Unive rsity of pressure [facility] Heart rate 2020-04-16 04:00:00 79 /min Universi ty of [facility] Respiratory rate 2020-04-16 04:00:00 16 /min Univ ersity of [place] [facility] Oxygen saturation in 2020-04-16 04:00:00 96 /min University of Arterial blood by [facility] ariel Pulse oximetry Branch Body temperature 2020-04-16 00:42:00 37.5 Chrissy Univ ersity of [facility] Body weight 2020-04-16 00:42:00 122.471 kg Universi ty of [facility] BMI 2020-04-16 00:42:00 37.66 kg/m2 Universi ty of [facility] Branch Systolic blood 2020-04-16 04:00:00 115 mm[Hg] Univer sity of pressure [facility] Branch Diastolic blood 2020-04-16 04:00:00 68 mm[Hg] Unive rsity of pressure [facility] Heart rate 2020-04-16 04:00:00 79 /min Universi ty of [facility] Respiratory rate 2020-04-16 04:00:00 16 /min Univ ersity of [facility] Branch Oxygen saturation in 2020-04-16 04:00:00 96 /min University of Arterial blood by [facility] ariel Pulse oximetry Branch Body temperature 2020-04-16 00:42:00 37.5 Chrissy Univ ersity of [facility] Body weight 2020-04-16 00:42:00 122.471 kg Universi ty of [place] [facility] BMI 2020-04-16 00:42:00 37.66 kg/m2 Universi ty of [facility] Branch Procedures Procedure Date / Time Performed Performing Clinician Sourfernanda e INCISION AND DRAINAGE 2020-07-25 20:25:48 [facility]ать[facility]IVACY 2020-07-25 17:04:52 Doctor Unassigned, No [facility] CONSENT/REFUSAL FOR 2020-07-25 17:04:36 [facility] Unassigned, [facility] Name Medical Branch TREATMENT VT DRAIN SKIN ABSCESS 2020-05-21 07:35:00 [facility] BASIC METABOLIC PANEL 2020-05-21 04:49:00 [facility] (NA, K, CL, CO2, Medical Branch GLUCOSE, BUN, CREATININE, CA) CBC WITH DIFF 2020-05-21 04:21:00 Kamari Salcedo [facility] POCT GLUCOSE 2020-04-16 04:28:00 Maria Fernanda Mata [facility] (AUTOMATED) [facility] XR FOOT <3 VW LEFT 2020-04-16 02:04:56 Maria Fernanda Mata [facility] ADC / LCC - DRUG 2020-04-16 01:57:00 Maria Fernanda Mata [facility] SCREEN TRIAGE [facility] HEPATIC FUNCTION 2020-04-16 01:54:00 Maria Fernanda Mata [facility] PANEL ([id number]) [facility] (ALB,T.PRO,BILI T,BU/BC,ALT,AST,ALK PHOS) BASIC METABOLIC PANEL 2020-04-16 01:54:00 Maria Fernanda Mata [facility] (NA, K, CL, CO2, Medical Branch GLUCOSE, BUN, CREATININE, CA) CBC WITH DIFF 2020-04-16 01:54:00 Maria Fernanda Mata [facility] N-TERMINAL PRO-BNP 2020-04-16 01:54:00 Maria Fernanda Mata [facility] CONSENT/REFUSAL FOR 2020-04-16 00:32:32 Doctor Unassigned, No [facility] AND Name Medical Branch TREATMENT Encounters Start End Encounter Admission Attending Care Care Encounter Source Date/Time Date/Time Type Type Clinicians Facility Department ID 2021-10-23 Outpatient CaceresGEORGE gilman [facility] [id number] Common 14:12:51 Mukesh [address] [facility] 2021-10-23 Outpatient CaceresGEORGE gilman [facility] [id number] Common 13:05:48 Mukesh [address] [facility] 2021-10-23 Outpatient CaceresGEORGE gilman [facility] [id number] Common 13:03:13 Mukesh [address] [facility] 2021-10-23 Outpatient Caceres, STLMLC STLMLC [id number] Common 12:31:16 Mukesh [address] [facility] 2021-10-23 Outpatient Caceres, STLMLC STLMLC [id number] Common 12:26:31 Mukesh [address] [facility] 2020-12-17 2020-12-17 Outpatient STLMLC STLMLC [id number] Common 00:00:00 00:00:00 [facility] 2020-11-17 2020-11-17 Outpatient STLMLC STLMLC [id number] Common 00:00:00 00:00:00 [facility] 2020-11-07 2020-11-07 Outpatient STLMLC STLMLC [id number] Common 00:00:00 00:00:00 [facility] 2020-10-25 2020-10-25 Outpatient STLMLC STLMLC [id number] Common 00:00:00 00:00:00 [facility] 2020-07-25 2020-07-25 Emergency [facility] [id number] [facility] 12:29:00 16:08:00 Татьяна Sanders [id number] ity [facility] 4.2.7.2.686 [facility] [id number] [address] 2020-07-25 2020-07-25 Emergency [facility] [id number] 12:29:00 16:08:00 Татьяна Sanders [id number] [place] [address] [place] [address] [id number] [facility] 2020-07-25 2020-07-25 Emergency X [facility] ERT [id number] Univers 12:29:00 12:29:00 Т[address]ЬЯНА ity [facility] 2020-07-25 2020-07-25 Orders Doctor JAVIER [id number] Univers 00:00:00 00:00:00 Only Unassigned, DISHA [id number] ity of [place] [facility] 4.2.7.2.686 [place]arc[place] as [id number] [facility] 00[address] [place] 2020-07-25 2020-07-25 Orders Doctor YAYA [id number] 00:00:00 00:00:00 Only Unassigned, DISHA [id number] [place] [facility] 4.2.7.2.686 [id number] 2020-05-20 2020-05-21 Emergency Denisse, TRAUMA [id number] Univers 22:28:00 03:34:00 Kamari E CENTER [id number] ity of [place] [id number] [facility] [address] [place] 2020-05-20 2020-05-21 Emergency Denisse, TRAUMA [id number] 22:28:00 03:34:00 Kamari E CENTER [id number] [id number] 2020-05-20 2020-05-20 Emergency X DENISSE, RUST ERT [id number] Univers 22:28:00 22:28:[address] [facility] 2020-04-15 2020-04-16 Emergency [facility] [id number] Univers 19:43:26 00:05:00 Maria Fernanda Sanders [id number] ity of [place] 4.2.7.2.686 [facility] [place] [id number] [address] 2020-04-15 2020-04-16 Emergency [facility] [id number] 19:43:26 00:05:00 Maria Fernanda Sanders [id number] [place] [id number] [place] [id number] [facility] 2020-04-15 2020-04-15 Emergency [facility] [id number] Univers 19:43:26 19:43:26 MARIA FERNANDA golden [facility] 2020-04-15 2020-04-15 Orders Doctor JAVIER [id number] Univers 00:00:00 00:00:00 Only Unassigned, DISHA [id number] ity of [place] [facility] 4.2.7.2.686 Jamarcus as [phone] [facility] 009 Branch 2020-04-15 2020-04-15 Orders Doctor YAYA [id number] 00:00:00 00:00:00 Only Unassigned, DISHA [id number] [place] [facility] 4.2.7.2.686 [id number] Results Test Description Test Time Test Comments Results Result Sour e Comments Incision and 2020-04-29 Kamari Salcedo MD Un iversity of Drainage 4 ? ? 05/21/2020 ?3:15 [facility] 07:35:00 AMIncision and Branch DrainagePerformed by: Kamari [...] Interpretation Comme nts NA (test code = 8333690389) 135 mmol/L 135-145 K (test code = 3457436972) 4.6 mmol/L 3.5-5 S light hemolysis CL (test code = 4945078414) 103 mmol/L 98-108 CO2 TOTAL (test code = 22 mmol/L 23-31 L 2526375092) AGAP (test code = 2-16 9164221655) BUN (test code = 13 mg/dL 7-23 Slight hemo lysis [id number]) GLUCOSE (test code = 238 mg/dL 70-110 H 4666409908) CREATININE (test code = 0.61 mg/dL 0.6-1.25 4955288052) CALCIUM (test code = 8.7 mg/dL 8.6-10.6 6134094331) eGFR Calculation mL/min/1.73m2 (Non-) (test code = 3347994235) eGFR Calculation ( mL/min/1.73m2 Eritrean) (test code = 3864947232) LUIS ALBERTO (test code = LUIS ALBERTO) [...] tests). Lab Interpretation (test Abnormal code = 73712-3) [facility] WITH [id number] 04:31:00 Test Item Value Reference Range Interpretation Comments WBC (test code = See_Comment H [Automated 8990-2) message] The sy stem which generated this result transmitted reference range : 4.20 - 10.70 10*3/?L. The reference range was not used to interpret this result as normal/abnormal . RBC (test code = See_Comment [Automated 789-8) message] The sy stem which generated this [...] RDW-SD (test code = 42.5 fL 38.5-51.6 65210-3) RDW-CV (test code = 13.0 % 12.1-15.4 788-0) PLT (test code = See_Comment [Automated 777-3) message] The sy stem which generated this result transmitted reference range : 150 - 328 10*3/ ?L. The reference r daniel was not used to interpret this result as normal/abnormal . MPV (test code = 9.5 fL 9.8-13 L 67113-5) NRBC/100 WBC (test See_Comment [Automat ed code = 6872285919) message] The system which generated this result transmitted reference range : 0.0 - 10.0 /100 WBCs. The refer ence range was not u sed to interpret th is result as normal/abnormal . NRBC x10^3 (test code <0.01 See_Comment [Auto mated = 9425952751) message] The s ystem which generated this result transmitted reference range : 10*3/?L. The reference range was not used to interpret this result as normal/abnormal . GRAN MAT (NEUT) % 70.7 % (test code = 770-8) IMM GRAN % (test code 0.30 % = 9916972720) LYMPH % (test code = 19.8 % 736-9) MONO % (test code = 7.8 % 5905-5) EOS % (test code = 0.7 % 713-8) BASO % (test code = 0.7 % 706-2) GRAN MAT x10^3(ANC) 7.61 10*3/uL 1.99-6.95 H (test code = 4463776665) IMM GRAN x10^3 (test 0.03 10*3/uL 0-0.06 code = 8491128258) LYMPH x10^3 (test code 2.13 10*3/uL 1.09-3.23 = 731-0) MONO x10^3 (test code 0.84 10*3/uL 0.36-1.02 = 742-7) EOS x10^3 (test code = 0.07 10*3/uL 0.06-0.53 711-2) BASO x10^3 (test code 0.08 10*3/uL 0.01-0.09 = 704-7) Lab Interpretation Abnormal (test code = 88543-8) [facility] 04:57:00 Test Item Value Reference Range Interpretation Comments POCT GLU (test code = 1663412986) 402 mg/dL 70-110 H Lab Interpretation (test code = Abnormal 18317-9) [facility] [id number] 03:18:00 Test Item Value Reference Range Interpretation Comments NT-proBNP (test code 42 pg/mL See_Comment [Autom ated = 9331473404) message] The system which generated this result transmitted reference range : <=125. The reference range was not used to interpret this result as normal/abnormal . LUIS ALBERTO (test code = LUIS ALBERTO) Biotin has been reported to cause a negative bias, interpret results relative to patient's use of biotin. Lab Interpretation Normal (test code = 84264-0) [facility] Metabolic Panel (NA, K, CL, CO2, GLUCOSE, BUN, CREATININE, CA)2020-04-16 03:13:00 Test Item Value Reference Range Interpretation Comments NA (test code = 134 mmol/L 135-145 L 1668401788) K (test code = 4.4 mmol/L 3.5-5 5964181223) CL (test code = 100 mmol/L 98-108 4066082813) CO2 TOTAL (test code = 24 mmol/L 23-31 8528177118) AGAP (test code = 2-16 1121714642) BUN (test code = 15 mg/dL 7-23 6007417406) GLUCOSE (test code = 455 mg/dL 70-110 HH 4968834072) CREATININE (test code = 0.60 mg/dL 0.6-1.25 9279308410) CALCIUM (test code = 9.6 mg/dL 8.6-10.6 5759612481) eGFR Calculation mL/min/1.73m2 (Non-) (test code = 9908550302) eGFR Calculation mL/min/1.73m2 () (test code = 6431556257) LUIS ALBERTO (test code = LUIS ALBERTO) [...] tests). Lab Interpretation Abnormal (test code = 63360-7) [facility] (ALB, T.PRO, BILI T, BU/BC, ALT, AST, ALK PHOS)2020-04-16 03:10:00 Test Item Value Reference Range Interpretation Comments TOTAL BILI (test code = 3374339083) 0.5 mg/dL 0.1-1.1 BILI UNCON (test code = 2054188636) 0.5 mg/dL 0.1-1.1 BILI CONJ (test code = 7325225062) 0.0 mg/dL 0-0.3 T PROTEIN (test code = 3567002758) 7.5 g/dL 6.3-8.2 ALBUMIN (test code = 3246727660) 4.1 g/dL 3.5-5 ALK PHOS (test code = 6127443478) 104 U/L 34-122 ALTv (test code = 1742-6) 27 U/L 5-50 AST(SGOT) (test code = 2949498150) 32 U/L 13-40 Lab Interpretation (test code = Normal 48061-0) [facility] with [id number] 03:05:00 Test Item Value Reference Range Interpretation Comments WBC (test code = See_Comment [Automated 0090-2) message] The sy stem which generated this result transmitted reference range : 4.20 - 10.70 10*3/?L. The reference range was not used to interpret this result as normal/abnormal . RBC (test code = See_Comment [Automated 931-8) message] The sy stem which generated this [...] RDW-SD (test code = 40.0 fL 38.5-51.6 07065-7) RDW-CV (test code = 12.0 % 12.1-15.4 L 788-0) PLT (test code = See_Comment [Automated 777-3) message] The sy stem which generated this result transmitted reference range : 150 - 328 10*3/ ?L. The reference r daniel was not used to interpret this result as normal/abnormal . MPV (test code = 10.0 fL 9.8-13 62044-6) NRBC/100 WBC (test See_Comment [Automat ed code = 3334450068) message] The system which generated this result transmitted reference range : 0.0 - 10.0 /100 WBCs. The refer ence range was not u sed to interpret th is result as normal/abnormal . NRBC x10^3 (test code <0.01 See_Comment [Auto mated = 5394746972) message] The s ystem which generated this result transmitted reference range : 10*3/?L. The reference range was not used to interpret this result as normal/abnormal . GRAN MAT (NEUT) % 61.8 % (test code = 770-8) IMM GRAN % (test code 0.50 % = 4218479432) LYMPH % (test code = 27.4 % 736-9) MONO % (test code = 7.6 % 5905-5) EOS % (test code = 2.0 % 713-8) BASO % (test code = 0.7 % 706-2) GRAN MAT x10^3(ANC) 4.62 10*3/uL 1.99-6.95 (test code = 4793297545) IMM GRAN x10^3 (test 0.04 10*3/uL 0-0.06 code = 0309709760) LYMPH x10^3 (test code 2.05 10*3/uL 1.09-3.23 = 731-0) MONO x10^3 (test code 0.57 10*3/uL 0.36-1.02 = 742-7) EOS x10^3 (test code = 0.15 10*3/uL 0.06-0.53 711-2) BASO x10^3 (test code 0.05 10*3/uL 0.01-0.09 = 704-7) Lab Interpretation Abnormal (test code = 26316-8) [facility] / [facility] - DRUG SCREEN [id number] 02:50:00 Test Item Value Reference Range Interpretation Comments BENZO U (test code = Negative Negative 0782611489) JOSE U (test code = Negative Negative 9575457309) AMPHET (test code = Negative Negative 5450828164) THC (test code = Negative Negative 7536555300) METHADONE (test code = Negative Negative 7517194297) Meth U (test code = Negative Negative 0137667647) OPIATES (test code = Presumptive Positive Negative A 3865828497) Cocaine Metabolite (test Negative Negative code = 3565462391) PROPOXY (test code = Negative Negative 2411779017) Tric U (test code = Negative Negative 4072829971) PCP (test code = Negative Negative 5924918856) OXYCOD (test code = Negative Negative 7337662607) LUIS ALBERTO (test code = LUIS ALBERTO) [...] testing). Lab Interpretation (test Abnormal code = 73904-5) [facility] CenterXR FOOT <3 VW [id number] 02:26:07 No radiographic evidence of osteomyelitis.2. Soft [...] in the dorsal pedal and tibialis posteriorarteries. [facility], Radiant Results Inft User - 04/15/2020 9:27 [...] posteriorarteries.IMPRESSIONNo radiographic evidence of osteomyelitis.2. Soft tissue swellingUnOakBend Medical Center
[2022-02-16] MEDS ORDERED: FENTANYL CITR 100 MCG/2 ML ONE ×2 (18:39→20:30)
[2022-02-16 18:46] LABS: Absolute Lymphocytes (CBC) 1.7 K/uL (0.7-4.9); Hematocrit 40.7 % (39.6-49.0); Lymphocytes % 11.5 % (15.3-44.8); MPV 7.8 fL (7.6-11.3); RBC Red Blood Cell Count 4.56 M/uL (4.33-5.43)
[2022-02-16] MEDS ORDERED: LIDOCAINE 1% W/EPI 1:100,000 MDV 20 ML VIAL ONE (18:46)
[2022-02-16] MEDS ORDERED: BUPIVACAINE 0.5% PF 10 ML VIAL ONE (18:46)
[2022-02-16 18:47] LABS: Protime INR 1.07
[2022-02-16 18:58] LABS: Potassium 3.8 mmol/L (3.5-5.1)
--- NOTE | 2022-02-16 20:59 | EDPHYS ---
Physician Documentation [facility] Name: Adiel Jeff Age: 51 yrs Sex: Male : 1970 Arrival Date: 02/16/2022 Time: 18:15 Bed 5 Private MD: ED Physician Oly Fernández HPI: 02/16 18:40 This 51 yrs old Male presents to ER via EMS with complaints of Upper Back Pain.cp 18:40 The patient presents with an abscess of the upper mid back. cp Historical: - Allergies: 18:18 No Known Allergies; ww - Home Meds: 18:18 lisinopril Oral [Active]; Lantus Sub-Q [Active]; ww - PMHx: 18:18 Anxiety; Diabetes - NIDDM; Hypertension; ww - Immunization history:: Adult Immunizations up to date. - Social history:: Smoking status: Patient denies any tobacco usage or history of. Vital Signs: 18:16 BP 116 / 75; Pulse 105; Resp 20; Temp 98.5(O); Pulse Ox 97% on R/A; Weight 120.2 kg; ww Height 5 ft. 11 in. (180.34 cm); Pain 10/10; 22:45 BP 133 / 86; Pulse 85; Resp 17; Pulse Ox 100% on R/A; kd3 18:16 Body Mass Index 36.96 (120.20 kg, 180.34 cm) ww MDM: 18:23 Patient medically screened. 02/16 18:22 Order name: CBC with Diff; Complete Time: 19:02 cp 02/16 19:02 Interpretation: Normal except: WBC 14.6; DESMOND% 79.4; LYM% 11.5; NEUT A 11.6. cp 02/16 18:22 Order name: BMP; Complete Time: 19:02 cp 02/16 19:02 Interpretation: Normal except: NA 130; GLUC 402; BUN 22. cp 02/16 18:22 Order name: PT-INR; Complete Time: 19:02 cp 02/16 18: Order name: IV Saline Lock; Complete Time: 18:40 cp 02/16 18:22 Order name: Labs collected and sent; Complete Time: 18:40 cp 02/16 18:23 Order name: I\T\D Setup; Complete Time: 18:46 cp 05/22 20:44 Order name: Wound dressing; Complete Time: 21:26 cp Administered Medications: 18:39 Drug: fentaNYL (PF) 25 mcg Route: IVP; Site: left forearm; ww 22:48 Follow up: Response: No adverse reaction kd3 20:29 Drug: fentaNYL (PF) 25 mcg Route: IVP; Site: left forearm; kd3 22:47 Follow up: Response: No adverse reaction kd3 21:06 Drug: Lidocaine-Epinephrine -1%: (1:100,000) 10 ml Volume: 20 ml; Route: Infiltration; kd3 22:48 Follow up: Response: No adverse reaction kd3 21:06 Drug: Marcaine (bupivacaine) (0.5 %) 10 ml Volume: 10 ml; Route: Infiltration; kd3 22:48 Follow up: Response: No adverse reaction kd3 21:24 Drug: HYDROcodone-acetaminophen 10 mg-325 mg 1 tabs Route: PO; kd3 22:47 Follow up: Response: No adverse reaction kd3 21:24 Drug: Bactrim (trimethoprim-sulfamethoxazole) (160 mg-800 mg (DS) 2 tabs Route: PO; kd3 22:47 Follow up: Response: No adverse reaction kd3 21:25 Drug: NS 0.9% 1000 ml Route: IV; Rate: 1 bolus; Site: left antecubital; kd3 22:48 Follow up: Response: No adverse reaction; IV Status: Completed infusion kd3 21:25 Drug: Insulin Regular Human 10 units {Co-Signature: as6 (Alcides Schrader RN).} Route: kd3 IVP; Site: left antecubital; 22:47 Follow up: Response: No adverse reaction kd3 21:25 Drug: Clindamycin 900 mg Route: IVPB; Infused Over: 30 mins; Site: left antecubital; kd3 22:47 Follow up: Response: No adverse reaction; IV Status: Completed infusion kd3 Disposition Summary: 02/16/22 20:59 Discharge Ordered Location: Home cp Problem: new cp Symptoms: have improved cp Condition: Stable cp Diagnosis - Cutaneous abscess of back [any part, except buttock] cp - Diabetes mellitus due to underlying condition with hyperglycemia cp Followup: cp - With: Paxton Corbin MD - When: 1 - 2 days - Reason: Wound Recheck Discharge Instructions: - Discharge Summary Sheet cp - Skin Abscess cp - Hyperglycemia cp - Incision and Drainage cp - Blood Glucose Monitoring, Adult cp - Diabetes Mellitus and Nutrition, Adult cp Forms: - Medication Reconciliation Form cp - Thank You Letter cp - Antibiotic Education cp - Prescription Opioid Use cp Prescriptions: - Clindamycin HCl 300 mg Oral Capsule - take 1 capsule by ORAL route every 6 hours for 10 days; 40 capsule; Refills: 0, cp Product Selection Permitted - Bactrim DS 800-160 mg Oral Tablet - take 1 tablet by ORAL route every 12 hours for 10 days; 20 tablet; Refills: 0, cp Product Selection Permitted - Tylenol-Codeine #3 300 mg-30 mg Oral - take 2 tablet by ORAL route every 6-8 hours; 16 tablet; Refills: 0, Product cp Selection Permitted Addendum: 02/19/2022 18:00 Addendum: HPI: Patient is a 51 y/o male with PMHX significant for NIDDM, HTN who c p presents to ED with complaints pain to mid upper back times 2 days. Patient reports swelling and concern for an abscess. Denies fever, denies drainage from area. 18:05 Addendum: ROS: Constitutional: negative for fever, chills, body aches. HEENT: negative c p for sore throat, difficulty swallowing. Cardiac: negative for chest pain. Respiratory: negative for shortness of breath, wheezing, cough. Back: positive for pain to upper back. negative for injury. Skin: positive for abscess to upper back. negative for rash. All other review of symptoms negative. 18:10 Addendum: Constitutional: The patient appears in no acute distress, alert, awake, c p non-toxic, well developed, well nourished, uncomfortable. Head/Face: Normocephalic, atraumatic. Eyes: Periorbital structures: Appear normal, Conjunctiva: normal, no exudate, no injection, Sclera: no appreciated abnormality, Lids and lashes: appear normal, bilaterally. ENT: External ear(s): are unremarkable, Nose: is normal, Posterior pharynx: Airway: no evidence of obstruction, patent. Chest/axilla: Inspection: normal. Cardiovascular: Rate: normal, Rhythm: regular. Respiratory: The patient does not display signs of respiratory distress, Respirations: normal, no use of accessory muscles, no retractions, labored breathing, is not present, Breath sounds: are clear throughout, no decreased breath sounds. Abdomen/GI: Inspection: obese, Bowel sounds: active, all quadrants, Palpation: abdomen is soft and non-tender, in all quadrants. Back: pain, that is sever, of the mid upper back. Skin: abscess, that is moderate sized, of the mid upper back, with surrounding cellulitis, that is mild. Neuro: Orientation: to person, place \T\ time. Mentation: is normal, Motor: moves all fours, strength is normal, Sensation: is normal. 18:30 Addendum: Procedures: I\T\D: Incision and drainage was performed for an abscess of the cp mid upper back. Area prepped with Betadine, Anesthetized with 10 cc mixture of 1% lidocaine with epi and 0.5% Marcaine. Incised with #11 blade. Drained small amount of purulent fluid and bloody fluid. Packed with iodoform gauze, quarter inch. Dressing: Sterile 4 x 4, the patient tolerated procedure well. 18:30 Addendum: Plan: Vital signs stable, pain markedly improved and patient will be c p discharged to home with oral antibiotics and pain meds. Patient instructed to follow-up with general surgery and/or return here worsening symptoms.. Signatures: Dispatcher [employer] EDMS Alex Grover PA PA cp Doucette, Kyli RN RN kd3 Ana Lilia Melendrez RN RN ww Alcides Schrader RN as6 Corrections: (The following items were deleted from the chart) 02/28 15:10 02/19/2022 18:00 Addendum: HPI: Patient is a 51 y/o male with PMHX significant for cp NIDDM, HTN who presents to ED with complaints pain to mid upper back times 4 days. Patient reports swelling and concern for an abscess. Denies fever, denies drainage from area. cp
--- NOTE | 2022-02-16 20:59 | ER ---
Nurse's Notes [facility] Name: Adiel Jeff Age: 51 yrs Sex: Male : 1970 Arrival Date: 02/16/2022 Time: 18:15 Bed 5 Private MD: Diagnosis: Cutaneous abscess of back [any part, except buttock];Diabetes mellitus due to underlying condition with hyperglycemia Presentation: 02/16 18:16 Chief complaint: Patient states: Cyst on the back of his neck that came up 2 days ago ww and has been getting worse. Patient complaining of tenderness and dizziness. Coronavirus screen: Vaccine status: Patient reports receiving the 2nd dose of the covid vaccine. Client denies travel out of the [place] in the last 14 days. Ebola Screen: Patient denies travel to an Ebola-affected area in the 21 days before illness onset. Initial Sepsis Screen: Does the patient meet any 2 criteria? No. Patient's initial sepsis screen is negative. Does the patient have a suspected source of infection? No. Patient's initial sepsis screen is negative. Risk Assessment: Do you want to hurt yourself or someone else? Patient reports no desire to harm self or others. Onset of symptoms is unknown. 18:16 Method Of Arrival: EMS: [facility] 18:16 Acuity: DURAN 4 Triage Assessment: 18:18 General: Appears uncomfortable, Behavior is cooperative. Pain: Complains of pain in ww thoracic area. Neuro: Level of Consciousness is awake, alert, obeys commands, Oriented to person, place, time, situation, Moves all extremities. Speech is normal. Cardiovascular: Capillary refill < 3 seconds Patient's skin is warm and dry. Respiratory: Airway is patent Respiratory effort is even, unlabored, Respiratory pattern is regular, symmetrical. GI: No signs and/or symptoms were reported involving the gastrointestinal system. : No signs and/or symptoms were reported regarding the genitourinary system. Derm: Skin is intact, Abscess located on thoracic area is golf ball sized. Historical: - Allergies: 18:18 No Known Allergies; ww - Home Meds: 18:18 lisinopril Oral [Active]; Lantus Sub-Q [Active]; ww - PMHx: 18:18 Anxiety; Diabetes - NIDDM; Hypertension; ww - Immunization history:: Adult Immunizations up to date. - Social history:: Smoking status: Patient denies any tobacco usage or history of. Screenin:20 Abuse screen: Denies threats or abuse. Denies injuries from another. Nutritional ww screening: No deficits noted. Tuberculosis screening: No symptoms or risk factors identified. Fall Risk None identified. Assessment: 18:20 Reassessment: Patient appears in no apparent distress at this time. No changes from ww previously documented assessment. Patient and/or family updated on plan of care and expected duration. Pain level reassessed. Patient is alert, oriented x 3, equal unlabored respirations, skin warm/dry/pink. see triage note. Vital Signs: 18:16 BP 116 / 75; Pulse 105; Resp 20; Temp 98.5(O); Pulse Ox 97% on R/A; Weight 120.2 kg; ww Height 5 ft. 11 in. (180.34 cm); Pain 10/10; 22:45 BP 133 / 86; Pulse 85; Resp 17; Pulse Ox 100% on R/A; kd3 18:16 Body Mass Index 36.96 (120.20 kg, 180.34 cm) ww ED Course: 18:15 Patient arrived in ED. em1 18:15 Alex Grover PA is PHCP. cp 18:15 Oly Fernández MD is Attending Physician. cp 18:16 Ana Lilia Melendrez, SUE is Primary Nurse. ww 18:18 Triage completed. ww 18:20 Arm band placed on. ww 18:20 Patient has correct armband on for positive identification. Bed in low position. Call ww light in reach. Side rails up X 1. Pulse ox on. NIBP on. 20:58 Paxton Corbin MD is Referral Physician. cp 22:46 No provider procedures requiring assistance completed. IV discontinued, intact, kd3 bleeding controlled, No redness/swelling at site. Pressure dressing applied. Administered Medications: 18:39 Drug: fentaNYL (PF) 25 mcg Route: IVP; Site: left forearm; ww 22:48 Follow up: Response: No adverse reaction kd3 20:29 Drug: fentaNYL (PF) 25 mcg Route: IVP; Site: left forearm; kd3 22:47 Follow up: Response: No adverse reaction kd3 21:06 Drug: Lidocaine-Epinephrine -1%: (1:100,000) 10 ml Volume: 20 ml; Route: Infiltration; kd3 22:48 Follow up: Response: No adverse reaction kd3 21:06 Drug: Marcaine (bupivacaine) (0.5 %) 10 ml Volume: 10 ml; Route: Infiltration; kd3 22:48 Follow up: Response: No adverse reaction kd3 21:24 Drug: HYDROcodone-acetaminophen 10 mg-325 mg 1 tabs Route: PO; kd3 22:47 Follow up: Response: No adverse reaction kd3 21:24 Drug: Bactrim (trimethoprim-sulfamethoxazole) (160 mg-800 mg (DS) 2 tabs Route: PO; kd3 22:47 Follow up: Response: No adverse reaction kd3 21:25 Drug: NS 0.9% 1000 ml Route: IV; Rate: 1 bolus; Site: left antecubital; kd3 22:48 Follow up: Response: No adverse reaction; IV Status: Completed infusion kd3 21:25 Drug: Insulin Regular Human 10 units {Co-Signature: as6 (Alcides Schrader RN).} Route: kd3 IVP; Site: left antecubital; 22:47 Follow up: Response: No adverse reaction kd3 21:25 Drug: Clindamycin 900 mg Route: IVPB; Infused Over: 30 mins; Site: left antecubital; kd3 22:47 Follow up: Response: No adverse reaction; IV Status: Completed infusion kd3 Medication: 22:47 VIS not applicable for this client. kd3 Outcome: 20:59 Discharge ordered by . cp 22:46 Discharged to home kd3 22:46 Condition: stable 22:46 Discharge instructions given to patient, Instructed on discharge instructions, follow up and referral plans. medication usage, Demonstrated understanding of instructions, follow-up care, medications, Prescriptions given X 3. 22:49 Patient left the ED. kd3 Signatures: Thai Rutherford em1 Alex Grover PA PA cp Doucette, Kyli, RN RN kd3 Ana Lilia Melendrez RN RN ww Alcides Schrader RN as6
[2022-02-16] MEDS ORDERED: HYDROCODONE/APAP 10/325 TAB ONE (21:14)
[2022-02-16] MEDS ORDERED: INSULIN -REGULAR HUMAN 50 UNIT/0.5 ML ML ONE (21:15)
[2022-02-16] MEDS ORDERED: SMZ./TMP. 800/160 MG TABLET ONE (21:15)
[2022-02-16] MEDS ORDERED: CLINDAMYCIN 900MG/D5W 900 MG/50 ML IVPB IV ONE (21:16)
[2022-02-16] MEDS ORDERED: NA CHLORIDE 0.9% 1,000 ML ONE (21:16)
[2022-02-16 22:54] VITALS: TEMP 98.5
[2022-02-16 22:55] VITALS: BP 133/86; O2SAT 100
== END 2022-02-16 22:49 | disposition home or self-care (01) ==
LOC: ER 18:13
PROC: 0J970ZZ Drainage of Back Subcutaneous Tissue and Fascia, Open Approach (ICD-10-PCS; principal; 2022-02-16)
DX: L02.212 Cutaneous abscess of back [any part, except buttock and flank] (principal); E11.65 Type 2 diabetes mellitus with hyperglycemia; F41.9 Anxiety disorder, unspecified; I10 Essential (primary) hypertension
CPT/HCPCS: 85025; 80048; 36415; 85610; 99284; 10060; J1815; J3010 ×2; J7030